=== PATIENT | male | born 1955 | race Caucasian/White ===

== ENCOUNTER 2022-08-23 12:02 | Outpatient (CLI) | payer MEDICARE, SELFPAY | END 2022-08-23 12:03 | disposition home or self-care (01) | LOC: AMB 08-24 05:47 | PROVIDERS: Visit Provider Family Medicine | DX: R55 Syncope and collapse (principal) | CPT/HCPCS: A0425; A0429 ==

== ENCOUNTER 2022-08-23 12:25 | Inpatient (IN) | payer MEDICARE, SELFPAY ==
[2022-08-23] VITALS (39 sets, daily range): BP systolic 171–238; BP diastolic 124–150; PULSE 70–98; RESP 16; TEMP 36.6–36.8; O2SAT 91–100; BMI 23.0; BMI 19.5
--- NOTE | 2022-08-23 12:37 | CRLHL7_ITS ---
For Patients: As a result of the Cures Act, medical imaging exams and procedure reports are released immediately into your electronic medical record. You may view this report before your referring provider. If you have questions, please contact your health care provider. INDICATION: Fall, weakness. COMPARISON: None available. TECHNIQUE: Portable chest. FINDINGS: Normal heart size. Pulmonary nodule in the mid to upper left hemithorax measuring 15 mm. No focal consolidative process. No obvious pneumothorax or pleural effusion. No aggressive-appearing osseous lesion. IMPRESSION: Left upper lobe pulmonary nodule measuring 15 mm. Dictated by Barney Weldon MD @ 08/23/2022 1:53:45 PM (Electronically Signed)
--- NOTE | 2022-08-23 12:39 | ED_ITS ---
HPI - General Adult General Date Seen: 08/23/22 Chief complaint: Neuro Symptoms/Altered Deficit Stated complaint: Stroke Time Seen by Provider: 08/23/22 12:37 Source: patient, EMS, RN notes reviewed and old records reviewed Mode of arrival: EMS Limitations: altered mental status History of Present Illness HPI narrative: Patient was brought in by EMS with stroke code. He was met in CT scan with EMS. Patient is having confusion, was found down in his bathroom and assisted up by his roommate. Patient states that he fell at 2:30 a.m. in the bathroom, states his legs were just weak and gave out on him. He states his roommate picked him up at 6:30 a.m. in the morning and gotten back to bed. This is not true, these events just happened prior to arrival, unclear how long patient was down in the bathroom. He denies any pain at this time. He is lucid in following commands. EMS thought he had some left facial drooping and with the lack of clarity/confusion for events, did call a stroke code. He was hypertensive I believe with a blood pressure in the systolic of 230s and diastolic I believe over 110. His pulse was mildly tachycardic at 107 for EMS. Sugar was normal and 130s. His roommate reportedly last had seen him while at about 10:00 a.m. last night which was reported to EMS., he was found down in the bathroom at around noon today. Patient tells me his legs just gave out on him. Unclear if there is any loss of consciousness. He denies any pain anywhere. Denies any difficulty breathing, no chest pain. On initial evaluation he sounds dysarthric but does not have teeth. EMS noted a facial droop which I am not seen at that time on arrival. He knows he is at [facility]. Admittedly sometimes his speech is difficult to understand but I a.m. able to make out what he sane if I have him repeat himself. Denies any numbness or tingling anywhere. 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 No visual field cut. No double vision or headache. Lifts his lower extremities, wiggles his feet. He is going to proceed with CT scan of his head and neck, return to the ER after that. I will not be doing a CTA of this patient as I do not find anything on clinical exam that suggests large vessel occlusion. Did look back in his records and in 2015 he had a right rotator cuff repair, postoperative blood pressures were 140s to 150s systolic. He has also had low back issues with surgery at L5 and S1. He has had an appendectomy and cataract surgery. In 2015 he was only on a multivitamin. I see no evidence of any documentation of hypertension for this patient nor has he ever been on any antihypertensives that I can see in our remote records. Related Data Home Medications Medication Instructions Recorded Confirmed No Known Home Medications 08/23/22 08/23/22 Allergies Allergy/AdvReac Type Severity Reaction Status Date / Time No Known Drug Allergies Allergy Verified 08/23/22 13:29 Review of Systems Status of ROS: Reports: 6 or more systems reviewed and unremarkable except as noted in History and below PFSH PFS Social History What is your current living situation: I presently have a place to live Problems where you live: oven or stove not working Problems where you live details: currently no stove In the past 12 months, utilities in danger of being shut off: no In the past 12 mos, have been you worried that your food would run out before you had money to buy more?: never true In the past 12 mos, the food you bought just didn't last and you didn't have money to buy more?: never true Smoking Status: Former smoker Do you use any of these nicotine containing products: None How often do you have a drink containing alcohol: never AUDIT-C Alcohol total score: 0 Non-prescribed substance use: denies use How often does anyone, including family, friends and others, physically hurt you : How often does anyone, including family, friends and others, insult or talk down to you: How often does anyone, including family, friends and others, threaten you with harm: How often does anyone, including family, friends and others, scream or curse at you: service: No Exam Const: Vital Signs, click to edit/add: Vital Signs - 24 hr 08/23/22 13:00 08/23/22 13:00 08/23/22 13:02 Temperature Pulse Rate 94 94 Pulse Rate [Pulse Oximeter] 93 Respiratory Rate Blood Pressure 211/139 H Blood Pressure [Ri ght Arm] Pulse Oximetry 97 97 Oxygen Delivery Me thod 08/23/22 13:03 08/23/22 13:15 08/23/22 13:15 Temperature Pulse Rate 94 88 Pulse Rate [Pulse Oximeter] 96 Respiratory Rate Blood Pressure Blood Pressure [Ri ght Arm] Pulse Oximetry 97 97 Oxygen Delivery Me thod 08/23/22 13:17 08/23/22 13:18 08/23/22 13:30 Temperature Pulse Rate 87 92 90 Pulse Rate [Pulse Oximeter] Respiratory Rate 16 Blood Pressure 213/139 H 213/139 H Blood Pressure [Ri ght Arm] Pulse Oximetry 95 96 98 Oxygen Delivery Me thod Room Air 08/23/22 13:30 08/23/22 13:32 08/23/22 13:33 Temperature Pulse Rate 87 82 Pulse Rate [Pulse Oximeter] 96 Respiratory Rate 16 Blood Pressure 210/149 H Blood Pressure [Ri ght Arm] Pulse Oximetry 96 96 Oxygen Delivery Me thod 08/23/22 13:45 08/23/22 13:45 08/23/22 13:47 Temperature Pulse Rate 89 94 Pulse Rate [Pulse Oximeter] 95 Respiratory Rate 16 Blood Pressure 210/143 H Blood Pressure [Ri ght Arm] Pulse Oximetry 95 95 Oxygen Delivery Me thod 08/23/22 13:48 08/23/22 14:00 08/23/22 14:02 Temperature Pulse Rate 93 Pulse Rate [Pulse Oximeter] 97 Respiratory Rate Blood Pressure 222/150 H Blood Pressure [Ri ght Arm] Pulse Oximetry 98 Oxygen Delivery Me thod 08/23/22 14:07 08/23/22 14:15 08/23/22 14:15 Temperature Pulse Rate 87 89 Pulse Rate [Pulse Oximeter] 97 Respiratory Rate Blood Pressure Blood Pressure [Ri ght Arm] Pulse Oximetry 97 96 Oxygen Delivery Me thod 08/23/22 14:17 08/23/22 14:29 08/23/22 14:30 Temperature Pulse Rate 93 88 84 Pulse Rate [Pulse Oximeter] Respiratory Rate 16 16 Blood Pressure 203/140 H 238/145 H Blood Pressure [Ri ght Arm] Pulse Oximetry 97 98 97 Oxygen Delivery Me thod 08/23/22 14:30 08/23/22 14:32 08/23/22 14:33 Temperature Pulse Rate 78 77 Pulse Rate [Pulse Oximeter] 98 Respiratory Rate Blood Pressure 200/140 H Blood Pressure [Ri ght Arm] Pulse Oximetry 96 96 Oxygen Delivery Me thod 08/23/22 14:45 08/23/22 14:45 08/23/22 14:47 Temperature Pulse Rate 75 82 Pulse Rate [Pulse Oximeter] 98 Respiratory Rate 16 Blood Pressure 223/143 H Blood Pressure [Ri ght Arm] Pulse Oximetry 100 95 Oxygen Delivery Me thod 08/23/22 14:49 08/23/22 14:57 08/23/22 15:00 Temperature Pulse Rate 79 75 71 Pulse Rate [Pulse Oximeter] Respiratory Rate Blood Pressure 180/124 H Blood Pressure [Ri ght Arm] Pulse Oximetry 97 96 97 Oxygen Delivery Me thod 08/23/22 15:00 08/23/22 15:04 08/23/22 15:05 Temperature Pulse Rate 70 76 Pulse Rate [Pulse Oximeter] 97 Respiratory Rate 16 Blood Pressure 196/138 H Blood Pressure [Ri ght Arm] Pulse Oximetry 97 96 Oxygen Delivery Me thod 08/23/22 15:15 08/23/22 15:15 08/23/22 15:18 Temperature Pulse Rate 78 76 Pulse Rate [Pulse Oximeter] 98 Respiratory Rate Blood Pressure 207/148 H Blood Pressure [Ri ght Arm] Pulse Oximetry 98 98 Oxygen Delivery Me thod 08/23/22 17:20 Temperature 98 F Pulse Rate Pulse Rate [Pulse Oximeter] 82 Respiratory Rate 16 Blood Pressure Blood Pressure [Ri ght Arm] 203/146 H Pulse Oximetry 96 Oxygen Delivery Me thod Room Air Documenting provider has reviewed patient's vital signs: yes Common normals: no apparent distress, oriented x3, no limitations and alert General appearance: cooperative, comfortable, disheveled and frail appearing Nutritional appearance: thin Orientation/consciousness: Yes awake, Yes oriented to person, Yes oriented to place and Yes confused Other: Confusion in time line events and confusion as to current time. He does know he is at [facility]. HENMT: Common normals: normocephalic, head/scalp atraumatic, hearing grossly normal bilaterally and external ears normal Head and scalp: normal to inspe ction, normocephalic and atraumatic Face and sinus: normal facial exam External ear: external ears normal Mouth: moist mucous membranes abnormal (Dry) Eye: Common normals: PERRL, EOMs intact bilaterally, conjunctivae normal, no scleral icterus and normal visual arcos by confrontation Conjunctiva: conjunctiva(e) normal Pupil: PERRL Neck & C-Spine: Common normals: full ROM, no lymphadenopathy, supple, no meningeal signs, no JVD and thyroid normal Thyroid: thyroid normal Resp: Common normals: normal respiratory effort, no retractions, no use of accessory muscles and clear to auscultation bilaterally Auscultation: clear to auscultation bilaterally Cardio: Common normals: no JVD, regular rate, regular rhythm, S1 normal heart sound, S2 normal heart sound, no gallops, no clicks and no murmurs Rate: regular rate Rhythm: regular rhythm Heart sounds: S1 normal and S2 normal GI: Common normals: Normal to inspection, nondistended, normoactive bowel sounds present, soft to palpation, non-tender, no hepatosplenomegaly and no masses Palpation: soft and no hepatosplenomegaly Extremity: Common normals: normal to inspection, full ROM, no calf tenderness and no pedal edema Neuro: [place] Coma Scale: document GCS findings [place] coma scale eye opening: Spontaneous (4) [place] coma scale verbal response: Orientated (5) Gla sg coma scale motor response: Obey commands (6) [place] coma scale total score: 15 Common normals: oriented x3, CN's II-XII intact bilaterally, moves all extremities, no focal motor deficits and no sensory deficits noted Sensorium/orientation: awake, alert, oriented to person and oriented to place Meningeal signs: no meningeal signs Motor exam: no pronator drift, no tremor noted, no asterixis and no fasciculations Other: Strength in upper extremities is 5/5 and symmetric, I can overcome his hip flexors bilaterally, has symmetric strength however. The lower legs around the ankles and feet are 5/5 in strength and symmetric. He has no focal motor deficit. On facial exam I do get symmetric mouth raise speech again at times seems slightly dysarthric, seems to understand what I am saying and follows commands appropriately. Difficult to say if speech is an issue from articulation or from a central speech dysarthria. NIH maybe 0-1. Patient given unknown down time was not a candidate for thrombolytics. Psych: Common normals: cooperative Course Course Hospital Course: 67-year-old male with some confusion, found down. Head CT and neck CT to rule out intracranial pathology. Blood pressure is quite elevated, REVOLVING INVENTORY CLERK disease with stroke and or hypertensive encephalopathy are possible. I do not feel a CTA is going to give us as much information as MRI, will consider doing MRI if needed here, will fallen clinically for a bit while we await our neuro imaging CT results. Will have him on cardiac monitoring, pulse oximetry, appropriate labs and EKG. Infectious etiology, metabolic derangements are all possible. Will also obtain a portable chest x-ray. Reevaluation(s) Time of Reevaluation #1: 14:39 Reevaluation #1: Patient is not experiencing any chest pain, no headache. Speech remains the same but no asymmetry on facial exam on my clinical examination. Blood pressure remains quite high, am going to try 5 mg IV labetalol just to slightly bring it down. Time of Reevaluation #2: 15:03 Reevaluation #2: Patient had slight reduction to 200/140 with 5 mg IV labetalol. When I discussed hospitalization with him, blood pressure went back up to nearly 240/140, again patient not having any complaints or decompensation is exam that I see. Did order 10 mg IV labetalol and blood pressure went to 196/138. Will not initiate any further blood pressure management. Will talk to the hospitalist about admission, cerebrovascular disease verses hypertensive encephalopathy remain 1. Diagnoses. Patient is overall stable. Consultations Consultation #1: Spoke with Dr. Magana, he does accept patient for admission. Did review concerns for the hypertension and rationale for not doing CTA. Time: 15:22 Vital Signs Vital signs: Initial Vital Signs Temperature 98.2 F 08/23/22 12:37 Temperature Source Temporal Artery Scan 08/23/22 12:37 Pulse Rate 96 08/23/22 12:37 Pulse Rhythm Regular 08/23/22 12:37 Respiratory Rate 16 08/23/22 12:37 Blood Pressure 228/147 H 08/23/22 12:37 Blood Pressure Mean 174 H 08/23/22 12:37 Pulse Oximetry 92 08/23/22 12:37 Oxygen Delivery Method Room Air 08/23/22 12:37 Vital Signs Temperature 98.2 F 08/23/22 12:37 Pulse Rate 96 08/23/22 12:37 Respiratory Rate 16 08/23/22 12:37 Blood Pressure 228/147 H 08/23/22 12:37 Pulse Oximetry 92 08/23/22 12:37 Oxygen Delivery Method Room Air 08/23/22 12:37 Temperature 98.1 F 08/24/22 11:15 Pulse Rate 94 08/24/22 11:15 Respiratory Rate 18 08/24/22 11:15 Blood Pressure 225/125 H 08/24/22 11:15 Pulse Oximetry 98 08/24/22 11:15 Oxygen Delivery Method Room Air 08/24/22 11:15 Medical Decision Making Lab Data Lab results reviewed: Yes I reviewed the patient's lab results Labs: Lab Results 08/23/22 08/23/22 08/23/22 Range/Units 12:37 12:50 12:56 WBC 7.72 (4.50-11.00) K/uL RBC 5.41 (4.30-5.90) m/uL Hgb 15.8 (13.5-17.5) gm/dL Hct 48.1 (37.0-53.0) % MCV 89 (80-100) fL MCH 29 (26-34) pg MCHC 33 (32-36) gm/dL RDW Coeff of Caprice 12.3 (11.5-15.5) % Plt Count 225 (140-440) K/uL Neut % (Auto) 69.7 (42.0-72.0) % Lymph % (Auto) 15.8 L (20-44) % [place] % (Auto) 9.5 (0.0-11.0) % Eos % (Auto) 4.5 (0.0-7.0) % Baso % (Auto) 0.4 (0.0-3.0) % Neut # (Auto) 5.38 (1.7-7.0) K/uL Lymph # (Auto) 1.20 (0.90-2.90) K/uL [place] # (Auto) 0.70 (0.00-0.90) K/UL Eos # (Auto) 0.35 (0.00-0.50) K/uL Baso # (Auto) 0.03 (0.00-0.30) K/uL INR 0.98 (0.91-1.10) APTT 28 (23-33) Seconds Sodium 141 (135-149) mmol/L Potassium 3.9 (3.6-5.1) mmol/L Chloride 106 (96-114) mmol/L Carbon Dioxide 26 (20-32) mmol/L BUN 27 (7-30) mg/dL Creatinine 1.6 H (0.5-1.5) mg/dL Estimated Creat Clear 45.36 Estimated GFR 47 ml/min Glucose 138 H (60-115) mg/dL Lactate 1.4 (0.5-1.9) mmol/L Calcium 9.8 (8.4-10.6) mg/dL Magnesium 1.7 (1.5-2.6) mg/dL Total Bilirubin 0.7 (0.1-1.5) mg/dL AST 24 (12-35) U/L ALT 23 (4-50) U/L Alkaline Phosphatase 62 (40-150) U/L Total Creatine Kinase 41 L (54-186) U/L C-Reactive Protein 0.6 (0.5-1.0) mg/dL Total Protein 8.2 (6.0-8.3) g/dL Albumin 4.6 (3.3-5.0) g/dL TSH 3.200 (0.270-4.200) uIU/mL Ethyl Alcohol < 0.01 L (0.01-0.03) % POC Troponin I 0.01 (0.01-0.04) ng/ml Imaging Data Chest x-ray: Attestation: I have reviewed the pertinent imaging results. Radiologist's impression: Patient: SUSHANT VIRGEN Facility:?[facility] Patient ID:?[id number] :?1955 Study:?XRay Chest PCXR-08/23/2022 12:54:21 PM Ordering Physician:Kevin Urbina Final Report: INDICATION: Fall, weakness. COMPARISON: None available. TECHNIQUE: Portable chest. FINDINGS: Normal heart size. Pulmonary nodule in the mid to upper left hemithorax measuring 15 mm. No focal consolidative process. No obvious pneumothorax or pleural effusion. No aggressive-appearing osseous lesion. IMPRESSION: Left upper lobe pulmonary nodule measuring 15 mm. Dictated by Barney Weldon MD @ 08/23/2022 1:53:45 PM (Electronic Signature) CT scan - head: Attestation: I have reviewed the pertinent imaging results. Radiologist's impression: Patient: SUSHANT VIRGEN Facility:?[facility] Patient ID:?[id number] Site Patient ID:?[id number]. Site :?1955 Study:?CT Head W/O-08/23/2022 1:03:24 PM Ordering Physician:Kevin Urbina Final Report: INDICATION: Fall, altered mental status. TECHNIQUE: CT head without contrast. COMPARISON: None. FINDINGS: CSF spaces: Mild diffuse parenchymal volume loss. Brain parenchyma and extra-axial spaces: Moderate chronic white matter ischemic disease. Chronic bilateral basal ganglia infarction. The graves-white differentiation is normal. No sign of mass, hemorrhage, or midline shift. No extra-axial fluid collection. Skull base and calvarium: The visualized paranasal sinuses and mastoid air cells demonstrate no acute or significant findings. The visualized orbits are grossly unremarkable. No skull fractures. IMPRESSION: No acute intracranial abnormality. Mild diffuse parenchymal volume loss and moderate chronic white matter ischemic disease. Please note that all CT scans at this facility use dose modulation, iterative reconstruction, and/or weight-based dosing when appropriate to reduce radiation dose to as low as reasonably achievable. Dictated by Williams Keita MD @ 08/23/2022 1:54:34 PM (Electronic Signature) CT cervical spine: Attestation: I have reviewed the pertinent imaging results. Radiologist's impression: Patient: SUSHANT VIRGEN Facility:?[facility] Patient ID:?[id number] Site Patient ID:?[id number]. Site :?1955 Study:?CT Spine Cervical W/O-08/23/2022 1:03:59 PM Ordering Physician:?Erika Urbina Final Report: INDICATION: Trauma. TECHNIQUE: CT cervical spine without contrast. COMPARISON: None. FINDINGS: Vertebrae: Alignment is normal. There are no fractures or suspicious bony lesions. Discs and facet joints: There are diffuse degenerative changes in the disc spaces and facet joints. Extraspinal findings: Paraspinous soft tissues are unremarkable. IMPRESSION: 1. No sign of acute injury. 2. Multilevel degenerative spondylosis. Please note that all CT scans at this facility use dose modulation, iterative reconstruction, and/or weight-based dosing when appropriate to reduce radiation dose to as low as reasonably achievable. Dictated by Williams Keita MD @ 08/23/2022 1:59:16 PM (Electronic Signature) ECG Data Attestation: I personally reviewed and interpreted this ECG as follows: (Sinus rhythm, 95 beats per minute. Machine calculated short [place] interval, PVC seen. Voltage criteria for LVH Q-waves lead 3 and AVF but no active ischemia noted.) Prior ECG tracings: not available for review
--- NOTE | 2022-08-23 12:42 | CRLHL7_ITS ---
For Patients: As a result of the Cures Act, medical imaging exams and procedure reports are released immediately into your electronic medical record. You may view this report before your referring provider. If you have questions, please contact your health care provider. INDICATION: Trauma. TECHNIQUE: CT cervical spine without contrast. COMPARISON: None. FINDINGS: Vertebrae: Alignment is normal. There are no fractures or suspicious bony lesions. Discs and facet joints: There are diffuse degenerative changes in the disc spaces and facet joints. Extraspinal findings: Paraspinous soft tissues are unremarkable. IMPRESSION: 1. No sign of acute injury. 2. Multilevel degenerative spondylosis. Please note that all CT scans at this facility use dose modulation, iterative reconstruction, and/or weight-based dosing when appropriate to reduce radiation dose to as low as reasonably achievable. Dictated by Williams Keita MD @ 08/23/2022 1:59:16 PM (Electronically Signed)
--- NOTE | 2022-08-23 12:42 | CRLHL7_ITS ---
For Patients: As a result of the Century Cures Act, medical imaging exams and procedure reports are released immediately into your electronic medical record. You may view this report before your referring provider. If you have questions, please contact your health care provider. INDICATION: Fall, altered mental status. TECHNIQUE: CT head without contrast. COMPARISON: None. FINDINGS: CSF spaces: Mild diffuse parenchymal volume loss. Brain parenchyma and extra-axial spaces: Moderate chronic white matter ischemic disease. Chronic bilateral basal ganglia infarction. The graves-white differentiation is normal. No sign of mass, hemorrhage, or midline shift. No extra-axial fluid collection. Skull base and calvarium: The visualized paranasal sinuses and mastoid air cells demonstrate no acute or significant findings. The visualized orbits are grossly unremarkable. No skull fractures. IMPRESSION: No acute intracranial abnormality. Mild diffuse parenchymal volume loss and moderate chronic white matter ischemic disease. Please note that all CT scans at this facility use dose modulation, iterative reconstruction, and/or weight-based dosing when appropriate to reduce radiation dose to as low as reasonably achievable. Dictated by Williams Keita MD @ 08/23/2022 1:54:34 PM (Electronically Signed)
[2022-08-23 13:03] LABS: Lactate* 1.4 mmol/L (0.5-1.9)
[2022-08-23 13:06] LABS: Basophils Absolute Auto 0.03 K/uL (0.00-0.30); Basophils Percent Auto 0.4 % (0.0-3.0); Eosinophils Absolute Auto 0.35 K/uL (0.00-0.50); Eosinophils Percent Auto 4.5 % (0.0-7.0); Hematocrit 48.1 % (37.0-53.0); Hemoglobin* 15.8 gm/dL (13.5-17.5); Immature Granulocytes Abs Auto 0.01 K/uL (0.00-0.30); Immature Granulocytes Pct Auto 0.1 %; Lymphocytes Percent Auto 15.8 % (20-44); Mean Corpuscular HGB Conc 33 gm/dL (32-36); Mean Corpuscular Hemoglobin 29 pg (26-34); Mean Corpuscular Volume 89 fL (80-100); Monocytes Percent Auto 9.5 % (0.0-11.0); Neutrophils Absolute Auto 5.38 K/uL (1.7-7.0); Neutrophils Percent Auto 69.7 % (42.0-72.0); Platelet Count* 225 K/uL (140-440); RDW Coefficient of Variation % 12.3 % (11.5-15.5); Red Blood Count 5.41 m/uL (4.30-5.90); White Blood Count* 7.72 K/uL (4.50-11.00)
[2022-08-23 13:07] LABS: Slide Review Reflex No
[2022-08-23 13:23] LABS: Albumin* 4.6 g/dL (3.3-5.0); Chloride* 106 mmol/L (96-114)
[2022-08-23 13:24] LABS: INR 0.98 (0.91-1.10); Partial Thromboplastin Time* 28 Seconds (23-33); Prothrombin Time 13.6 Seconds
[2022-08-23 13:24] LABS: Potassium* 3.9 mmol/L (3.6-5.1); Sodium* 141 mmol/L (135-149)
[2022-08-23 13:25] LABS: Bilirubin Total* 0.7 mg/dL (0.1-1.5); Creatinine* 1.6 mg/dL (0.5-1.5); Est. Creatinine Clearance* 45.36; Estimated Glomerular Filt Rate 47 ml/min
[2022-08-23 13:26] LABS: Alanine Aminotransferase* 23 U/L (4-50); Alkaline Phosphatase* 62 U/L (40-150); Aspartate Amino Transferase* 24 U/L (12-35); Blood Urea Nitrogen* 27 mg/dL (7-30); Carbon Dioxide* 26 mmol/L (20-32); Creatine Kinase* 41 U/L (54-186); Glucose* 138 mg/dL (60-115); Total Protein* 8.2 g/dL (6.0-8.3)
[2022-08-23 13:27] LABS: Calcium* 9.8 mg/dL (8.4-10.6); Magnesium* 1.7 mg/dL (1.5-2.6)
[2022-08-23 13:28] LABS: Troponin, Point-of-Care* 0.01 ng/ml (0.01-0.04)
[2022-08-23 13:29] LABS: C Reactive Protein* 0.6 mg/dL (0.5-1.0); Ethanol* < 0.01 % (0.01-0.03)
[2022-08-23] MEDS: LABETALOL HCL 5 MG/ML inj IVP (14:28)
--- NOTE | 2022-08-23 14:40 | ED.NURSE ---
Call from pt's roommate (Tato). Pt gives medical technical writer verbal consent to discuss updates. Roommate updated that pt will be admitted. Tato: [phone].
[2022-08-23] MEDS: LABETALOL HCL 5 MG/ML inj 10 MG IVP (14:51)
--- NOTE | 2022-08-23 15:18 | CRLHL7_ITS ---
For Patients: As a result of the Century Cures Act, medical imaging exams and procedure reports are released immediately into your electronic medical record. You may view this report before your referring provider. If you have questions, please contact your health care provider. CLINICAL HISTORY: Stroke. TECHNIQUE: 3D TOF MRA of the head was performed. 3D MIP reformats were performed at an independent workstation. COMPARISON: None available. FINDINGS: The petrous, cavernous, and supraclinoid segments of the internal carotid arteries are patent. The anterior and middle cerebral arteries are patent. The anterior communicating artery is visualized and within normal limits. The intracranial vertebral arteries, basilar trunk, and posterior cerebral arteries are patent. No intracranial proximal large vessel occlusion or flow-limiting luminal stenosis. No evidence of cerebral aneurysm or findings to suggest an arterial-venous shunting lesion. IMPRESSION: No intracranial proximal large vessel occlusion or flow-limiting luminal stenosis. Dictated by Raymond Squires MD @ 08/23/2022 5:31:49 PM (Electronically Signed)
--- NOTE | 2022-08-23 15:18 | CRLHL7_ITS ---
For Patients: As a result of the Century Cures Act, medical imaging exams and procedure reports are released immediately into your electronic medical record. You may view this report before your referring provider. If you have questions, please contact your health care provider. CLINICAL HISTORY: Stroke. TECHNIQUE: 3D TOF MRA and contrast-enhanced MRA of the neck was performed. 3D MIP reformats were performed at an independent workstation. Contrast: 20mL of Dotarem was administered intravenously. COMPARISON: None available. FINDINGS: The origins of the great vessels are patent. The origins of the vertebral arteries are patent, noting direct origin of the left vertebral artery from the aortic arch. The common carotid arteries are patent. Mild (<50%) atherosclerotic stenosis of the proximal right ICA by NASCET criteria. No significant stenosis of the proximal left ICA by NASCET criteria. The more distal cervical segments of the internal carotid arteries are patent. The cervical segments of the vertebral arteries are patent. IMPRESSION: Mild (<50%) atherosclerotic stenosis of the proximal right ICA by NASCET criteria. Dictated by Raymond Squires MD @ 08/23/2022 5:29:06 PM (Electronically Signed)
--- NOTE | 2022-08-23 15:18 | CRLHL7_ITS ---
For Patients: As a result of the Century Cures Act, medical imaging exams and procedure reports are released immediately into your electronic medical record. You may view this report before your referring provider. If you have questions, please contact your health care provider. CLINICAL HISTORY: Stroke. TECHNIQUE: Multi-sequence, multiplanar MRI examination of the brain was performed. Contrast: 20mL of Dotarem was administered intravenously. COMPARISON: Head CT from earlier the same day. FINDINGS: There are several scattered foci of restricted diffusion involving the supratentorial and infratentorial brain parenchyma, including the left frontal centrum semiovale, posterior left castellanos radiata, deep white matter of both parietal lobes, and right pontomedullary junction. These findings are most consistent with acute/early subacute infarcts. No intracranial hemorrhage, extra-axial collection, mass effect, or midline shift. Yzof-hg-oltmfbmq generalized parenchymal volume loss with resulting prominence of cerebral sulci and the ventricular system. Fairly extensive patchy and confluent T2/FLAIR hyperintensity within the white matter of both hemispheres as well as the josefina most consistent with sequela of moderately advanced chronic small vessel ischemia. Numerous small chronic infarcts are seen within the left frontal centrum semiovale, deep white matter of the left parietal lobe, left castellanos radiata, bilateral basal ganglia, left thalamus, and the josefina. There is no pathologic intracranial enhancement. The major dural venous sinuses and deep venous system are patent. Thinning of the left ocular lens. The paranasal sinuses are unremarkable. The mastoid air cells are clear. The calvarium is unremarkable. IMPRESSION: 1. Multiple small subcentimeter acute/early subacute infarcts, involving the supratentorial and infratentorial brain parenchyma, as detailed above. This is favored to be secondary to a central embolic source given the multiple vascular territories involved. 2. Multiple small chronic infarcts involving the supratentorial and infratentorial brain parenchyma. 3. Mtax-de-hkbudcfy generalized parenchymal volume loss and findings most consistent with sequela of moderately advanced chronic small vessel ischemia. Dictated by Raymond Squirse MD @ 08/23/2022 5:25:33 PM (Electronically Signed)
--- NOTE | 2022-08-23 15:45 | ED.NURSE ---
Pt has 18 g PIV placed in L forearm by pre-hospital EMS at approximately 1220. Asymptomatic, saline locked.
--- NOTE | 2022-08-23 16:00 | PM.IMHP1 ---
Hospitalist- H&P: HPI History of Present Illness Date Seen: 08/23/22 Chief complaint: Stroke Narrative: Ricki Flores is a 67 year old male with limited known past medical history; hypertension who presented to ED for evaluation of fall. Patient unable to provide hx due to confusion. He was found at his home by friend around noon after fall in the bathroom. He was noted to have slurred speech and dysarthria. He was brought to ED where CT head showed no acute findings. In the ED he was given IV labetalol X2 due to elevated blood pressure. He was admitted for further evaluation. During my assessment the patient states he had speaking difficulties last night. He is not oriented to time. Denies headache and SOB. I did order MRI/MRA Brain which is showing multiple infarcts. ED workup IMPRESSION: No acute intracranial abnormality. Mild diffuse parenchymal volume loss and moderate chronic white matter ischemic disease. CT cervical Spine 1. No sign of acute injury. 2. Multilevel degenerative spondylosis. CXR Left upper lobe pulmonary nodule measuring 15 mm. EKG-sinus rhythm; rate 95; PAcs Review of Systems Status of ROS: Reports: unobtainable due to medical condition [facility] Social History What is your current living situation: I presently have a place to live Problems where you live: oven or stove not working Problems where you live details: currently no stove In the past 12 months, utilities in danger of being shut off: no In the past 12 mos, have been you worried that your food would run out before you had money to buy more?: never true In the past 12 mos, the food you bought just didn't last and you didn't have money to buy more?: never true Smoking Status: Former smoker Do you use any of these nicotine containing products: None How often do you have a drink containing alcohol: never AUDIT-C Alcohol total score: 0 Non-prescribed substance use: denies use How often does anyone, including family, friends and others, physically hurt you: How often does anyone, including family, friends and others, insult or talk down to you: How often does anyone, including family, friends and others, threaten you with harm: How often does anyone, including family, friends and others, scream or curse at you: service: No Meds Home Medications and Allergies Home Medications Medication Instructions Recorded Confirmed Type No Known Home Medications 08/23/22 08/23/22 History Allergies Allergy/AdvReac Type Severity Reaction Status Date / Time No Known Drug Allergies Allergy Verified 08/23/22 13:29 Exam Narrative: Exam Narrative: Gen: no acute distress HEENT: NCAT EOMI mmm Neck: Supple CV: RRR normal s1 s2 Lungs: CTAB Abd: Soft,nt, nd Neuro: Alert,oriented to place but not time, speech slurred, expressive aphasia; LUE/LLE strength 4/5; sensation light touch intact; difficult to ascertain facial droop due to facial hair Psych: appropriate affect MSK: decreased muscle mass Skin; Warm, dry no rash on face Const: Vital Signs, click to edit/add: Vital Signs - 24 hr 08/23/22 12:37 08/23/22 12:37 08/23/22 12:37 Temperature 98.2 F Pulse Rate Pulse Rate [Pulse Oximeter] 96 93 Respiratory Rate 16 Blood Pressure Blood Pressure [Le ft Upper Arm] 228/147 H Pulse Oximetry 92 92 Oxygen Delivery Me thod Room Air 08/23/22 12:42 08/23/22 12:43 08/23/22 12:45 Temperature Pulse Rate 96 93 Pulse Rate [Pulse Oximeter] Respiratory Rate Blood Pressure 228/147 H Blood Pressure [Le ft Upper Arm] Pulse Oximetry 91 98 Oxygen Delivery Me thod 08/23/22 12:45 08/23/22 12:49 08/23/22 13:00 Temperature Pulse Rate 92 94 Pulse Rate [Pulse Oximeter] 93 Respiratory Rate Blood Pressure 237/138 H Blood Pressure [Le ft Upper Arm] Pulse Oximetry 97 97 Oxygen Delivery Me thod 08/23/22 13:00 08/23/22 13:02 08/23/22 13:03 Temperature Pulse Rate 94 94 Pulse Rate [Pulse Oximeter] 93 Respiratory Rate Blood Pressure 211/139 H Blood Pressure [Le ft Upper Arm] Pulse Oximetry 97 97 Oxygen Delivery Me thod 08/23/22 13:15 08/23/22 13:15 08/23/22 13:17 Temperature Pulse Rate 88 87 Pulse Rate [Pulse Oximeter] 96 Respiratory Rate Blood Pressure 213/139 H Blood Pressure [Le ft Upper Arm] Pulse Oximetry 97 95 Oxygen Delivery Me thod 08/23/22 13:18 08/23/22 13:30 08/23/22 13:30 Temperature Pulse Rate 92 90 Pulse Rate [Pulse Oximeter] 96 Respiratory Rate 16 Blood Pressure 213/139 H Blood Pressure [Le ft Upper Arm] Pulse Oximetry 96 98 Oxygen Delivery Me thod Room Air 08/23/22 13:32 08/23/22 13:33 08/23/22 13:45 Temperature Pulse Rate 87 82 Pulse Rate [Pulse Oximeter] 95 Respiratory Rate 16 Blood Pressure 210/149 H Blood Pressure [Le ft Upper Arm] Pulse Oximetry 96 96 Oxygen Delivery Me thod 08/23/22 13:45 08/23/22 13:47 08/23/22 13:48 Temperature Pulse Rate 89 94 93 Pulse Rate [Pulse Oximeter] Respiratory Rate 16 Blood Pressure 210/143 H Blood Pressure [Le ft Upper Arm] Pulse Oximetry 95 95 98 Oxygen Delivery Me thod 08/23/22 14:00 08/23/22 14:02 08/23/22 14:07 Temperature Pulse Rate 87 Pulse Rate [Pulse Oximeter] 97 Respiratory Rate Blood Pressure 222/150 H Blood Pressure [Le ft Upper Arm] Pulse Oximetry 97 Oxygen Delivery Me thod 08/23/22 14:15 08/23/22 14:15 08/23/22 14:17 Temperature Pulse Rate 89 93 Pulse Rate [Pulse Oximeter] 97 Respiratory Rate 16 Blood Pressure 203/140 H Blood Pressure [Le ft Upper Arm] Pulse Oximetry 96 97 Oxygen Delivery Me thod 08/23/22 14:29 08/23/22 14:30 08/23/22 14:30 Temperature Pulse Rate 88 84 Pulse Rate [Pulse Oximeter] 98 Respiratory Rate 16 Blood Pressure 238/145 H Blood Pressure [Le ft Upper Arm] Pulse Oximetry 98 97 Oxygen Delivery Me thod 08/23/22 14:32 08/23/22 14:33 08/23/22 14:45 Temperature Pulse Rate 78 77 Pulse Rate [Pulse Oximeter] 98 Respiratory Rate Blood Pressure 200/140 H Blood Pressure [Le ft Upper Arm] Pulse Oximetry 96 96 Oxygen Delivery Me thod 08/23/22 14:45 08/23/22 14:47 08/23/22 14:49 Temperature Pulse Rate 75 82 79 Pulse Rate [Pulse Oximeter] Respiratory Rate 16 Blood Pressure 223/143 H Blood Pressure [Le ft Upper Arm] Pulse Oximetry 100 95 97 Oxygen Delivery Me thod 08/23/22 14:57 08/23/22 15:00 08/23/22 15:00 Temperature Pulse Rate 75 71 Pulse Rate [Pulse Oximeter] 97 Respiratory Rate Blood Pressure 180/124 H Blood Pressure [Le ft Upper Arm] Pulse Oximetry 96 97 Oxygen Delivery Tn thod 08/23/22 15:04 08/23/22 15:05 08/23/22 15:15 Temperature Pulse Rate 70 76 Pulse Rate [Pulse Oximeter] 98 Respiratory Rate 16 Blood Pressure 196/138 H Blood Pressure [Le ft Upper Arm] Pulse Oximetry 97 96 Oxygen Delivery Tn thod 08/23/22 15:15 08/23/22 15:18 Temperature Pulse Rate 78 76 Pulse Rate [Pulse Oximeter] Respiratory Rate Blood Pressure 207/148 H Blood Pressure [Le ft Upper Arm] Pulse Oximetry 98 98 [facility] - [facility]: Result Labs Labs: Short CBC 08/23/22 Range/Units 12:56 WBC 7.72 (4.50-11.00) K/uL Hgb 15.8 (13.5-17.5) gm/dL Hct 48.1 (37.0-53.0) % Plt Count 225 (140-440) K/uL BMP 08/23/22 12:37 Sodium 141 Potassium 3.9 Chloride 106 Carbon Dioxide 26 BUN 27 Creatinine 1.6 H Glucose 138 H Calcium 9.8 Cardiac Enzymes 08/23/22 Range/Units 12:37 Total Creatine Kinase 41 L (54-186) U/L Liver Function 08/23/22 Range/Units 12:37 Total Bilirubin 0.7 (0.1-1.5) mg/dL AST 24 (12-35) U/L ALT 23 (4-50) U/L Alkaline Phosphatase 62 (40-150) U/L Albumin 4.6 (3.3-5.0) g/dL Assessment and Plan Assessment and plan (1) Stroke: Status: Acute (2) Hypertension: Status: Acute (3) CKD (chronic kidney disease): Status: Acute Plan Assessment: Ricki Flores is a 67 year old male with limited known past medical history; hypertension who presented to ED for evaluation of fall, confusion, slurred speech and dysarthria. He was brought to ED where CT head showed no acute findings. In the ED he was given IV labetalol X2 due to elevated blood pressure. He was admitted for further evaluation. I did order MRI/MRA Brain which is showing multiple infarcts. 1. Acute CVA 2. Hx of HTN 3. Presumed CKD 3; cr 1.6 4. Hyperglycemia Plan -admit to inpatient -Aspirin 325mg -PT, OT, METHODS ANALYST DATA PROCESSING consult -SW consult Thursday -echo -tele -neuro checks -permissive htn -check a1c -check lipid panel -npo did not pass swallow eval -I discussed case with [facility]; who recommended workup noted above Code-Full DVT ppx-SCD MRI BRAIN MPRESSION: 1. Multiple small subcentimeter acute/early subacute infarcts, involving the supratentorial and infratentorial brain parenchyma, as detailed above. This is favored to be secondary to a central embolic source given the multiple vascular territories involved. 2. Multiple small chronic infarcts involving the supratentorial and infratentorial brain parenchyma. 3. Cusq-yw-tcizcutb generalized parenchymal volume loss and findings most consistent with sequela of moderately advanced chronic small vessel ischemia. MRA MPRESSION: No intracranial proximal large vessel occlusion or flow-limiting luminal stenosis.
[2022-08-23 18:06] LABS: Appearance Urine Clear (Clear); Bilirubin Urine 1+ (Negative); Blood Urine Trace-intact (Negative); Color Urine Yellow (Yellow); Glucose Urine Negative (Negative); Ketones Urine Trace (Negative); Leukocyte Esterase Urine Negative (Negative); Nitrite Urine Negative (Negative); Protein Urine Trace (Negative); Specific Gravity Urine 1.025 (1.000-1.030); Urobilinogen Urine 0.2 (0.2-1.0)
[2022-08-23 18:17] LABS: Barbiturate Screen Urine Negative (Negative); Benzodiazepines Screen Urine Negative (Negative); Cocaine Screen Urine Negative (Negative); Methadone Screen Urine Negative (Negative); Methamphetamines Screen Urine Negative (Negative); Opiate Screen Urine Negative (Negative); Oxycodone Screen Urine Negative (Negative); Phencyclidine Screen Urine Negative (Negative); Tricyclic Antidepressant Urine Negative (Negative)
[2022-08-23] MEDS: 0.9 % SODIUM CHLORIDE 1000 ml 1,000 ML 75 ML IV (18:24)
[2022-08-23] MEDS: ASPIRIN 300 MG SUPP PR (18:24)
[2022-08-23 18:25] LABS: RBC Urine 0-2 (0-2); WBC Urine 0-2 (0-5)
[2022-08-23 18:26] LABS: Bacteria Urine Few
[2022-08-23] MEDS: SODIUM CHLORIDE 0.9 % (FLUSH) 10 ML SYRINGE 5 ML IVF (18:30)
[2022-08-23 18:31] LABS: Amphetamine Screen Urine POSITIVE (Negative); Cannabinoid Screen Urine POSITIVE (Negative)
[2022-08-23] MEDS: HYDRALAZINE HCL 20 MG/ML inj 10 MG IVP (22:26)
--- NOTE | 2022-08-23 22:57 | PC.NURSE ---
Addendum entered by Ann Morgan RN 08/23/22 23:19: He has some left-sided weakness and possibly a slight facial droop. He is oriented to self, place, but not to year. Original Note: Shift [id number]- Patient arrives to floor from imaging via wheelchair. He is somewhat unsteady- gait belt and assist of 1 provided. He voids 150mLs this shift and blood pressures are extremely elevated- MD notified- see orders. He is unable to void this evening, bladder scanned for 160mLs. NPO per MD, patient requests water, he is given education and offered mouth swabs but refuses. He is otherwise appearing to try to rest in bed throughout shift.
[2022-08-24] VITALS (9 sets, daily range): BP systolic 208–231; BP diastolic 125–154; PULSE 76–100; RESP 16–20; TEMP 36.6–36.8; O2SAT 95–98
[2022-08-24 04:12] LABS: Chloride* 109 mmol/L (96-114); Potassium* 3.6 mmol/L (3.6-5.1); Sodium* 142 mmol/L (135-149)
[2022-08-24 04:15] LABS: Blood Urea Nitrogen* 23 mg/dL (7-30); Carbon Dioxide* 21 mmol/L (20-32); Cholesterol* 182 mg/dL (90-199); Creatinine* 1.2 mg/dL (0.5-1.5); Est. Creatinine Clearance* 52.92; Estimated Glomerular Filt Rate 66 ml/min; Glucose* 108 mg/dL (60-115)
[2022-08-24 04:16] LABS: Calcium* 9.4 mg/dL (8.4-10.6); HDL Cholesterol* 40 mg/dL (>=40); LDL Cholesterol Calculated 117 mg/dL (<100); Triglycerides* 125 mg/dL (40-149)
[2022-08-24 04:23] LABS: Basophils Absolute Auto 0.04 K/uL (0.00-0.30); Basophils Percent Auto 0.5 % (0.0-3.0); Eosinophils Absolute Auto 0.52 K/uL (0.00-0.50); Eosinophils Percent Auto 6.3 % (0.0-7.0); Hematocrit 44.7 % (37.0-53.0); Hemoglobin* 14.9 gm/dL (13.5-17.5); Immature Granulocytes Abs Auto 0.01 K/uL (0.00-0.30); Immature Granulocytes Pct Auto 0.1 %; Lymphocytes Absolute Auto 1.97 K/uL (0.90-2.90); Lymphocytes Percent Auto 23.7 % (20-44); Mean Corpuscular HGB Conc 33 gm/dL (32-36); Mean Corpuscular Hemoglobin 29 pg (26-34); Mean Corpuscular Volume 88 fL (80-100); Monocytes Percent Auto 9.7 % (0.0-11.0); Neutrophils Absolute Auto 4.97 K/uL (1.7-7.0); Neutrophils Percent Auto 59.7 % (42.0-72.0); Platelet Count* 217 K/uL (140-440); RDW Coefficient of Variation % 12.3 % (11.5-15.5); Red Blood Count 5.07 m/uL (4.30-5.90); White Blood Count* 8.32 K/uL (4.50-11.00)
[2022-08-24 04:25] LABS: Slide Review Reflex No
[2022-08-24] MEDS: HYDRALAZINE HCL 20 MG/ML inj 10 MG IVP ×3 (04:34→23:00)
[2022-08-24] MEDS: 0.9 % SODIUM CHLORIDE 1000 ml 1,000 ML 100 ML IV ×2 (04:40→15:25)
--- NOTE | 2022-08-24 06:22 | PC.NURSE ---
Shift note: Patient's condition has remain stable. No further deterioration in neurological s/s. Pt has unstable gait. Weakness to the left side of the body noted and speech is not clear. Pt had difficulty voiding. Bladder scan done was 423ml. Straight catheter done at 0500 and 500ml of clear urine drained. Denied any pain. Bp has remained persistently high, 1x PRN hydralazine given. NPO status maintained.
--- NOTE | 2022-08-24 15:51 | P.IMPN_ITS ---
Progress Note: A&P Assessment and plan (1) Stroke: Problem details: - Urine toxicology screen was positive for amphetamines, which may have contributed to this. Echocardiogram pending. Aspirin given rectally yesterday. Unable to take PO at this time. - Brain MRI: Multiple small subcentimeter acute/early subacute infarcts, involving the supratentorial and infratentorial brain parenchyma, as detailed above. This is favored to be secondary to a central embolic source given the multiple vascular territories involved. In the ED he was given IV labetalol X2 due to elevated blood pressure. He was admitted for further evaluation. I did order MRI/MRA Brain which is showing multiple infarcts. - Speech tx, PT, OT, permissive HTN - Will need daily aspirin and statin when able to take PO Status: Acute (2) Hypertension: Problem details: Allow permissive hypertension, continue hydralazine for SBP >220 or DBP>120. Status: Acute (3) CKD (chronic kidney disease): Problem details: Cr stable. Status: Acute Plan Hgb A1C pending Will need SNF Subjective Time Seen by Provider: 10:25 Date Seen: 08/24/22 Interval history: Ricki continues to have expressive aphasia. He was able to answer some questions with meaningful words, especially if the answer with short, such as he knew he was in [facility]. He was quite tearful and seemed very frustrated when trying to say something but it kept coming out ?baptism, baptism, baptism. ? Exam Narrative: Exam Narrative: General: Tearful. Awake, alert, oriented to self and place and month. He thought it was 2020 and did not know the date but did know it was Thursday. No pallor. No jaundice. Oropharynx: Clear. Mucous membranes moist. Cardiovascular: Regular rate and rhythm. No murmurs, gallops, or rubs. Respiratory: Clear to auscultation bilaterally. No wheezes or crackles. Abdomen: Bowel sounds present. Soft, nondistended, nontender. Neuro: Orientation as above. Speech is slurred and he continues to have expressive aphasia as above. Appears to have a facial droop as his upper lip is floppy while he is talking, but difficult to tell for certain since he has a mustache. Extraocular movements are full. No nystagmus. Tongue is midline. Peripheral vision and vision are grossly intact. Strength is diminished in the left upper and lower extremity, 3/5 and 4/5, respectively. Const: Vital Signs, click to edit/add: Vital Signs - 24 hr 08/23/22 17:20 08/23/22 19:06 08/23/22 20:00 Temperature 98 F 98.1 F Pulse Rate 73 Pulse Rate [Pulse Oximeter] 82 74 Respiratory Rate 16 16 Blood Pressure [Ri ght Arm] 203/146 H 226/127 H Pulse Oximetry 96 97 Oxygen Delivery Me thod Room Air Room Air 08/23/22 23:00 08/23/22 23:00 08/24/22 00:19 Temperature 98.1 F Pulse Rate 76 Pulse Rate [Pulse Oximeter] 90 90 Respiratory Rate 16 16 Blood Pressure [Ri ght Arm] 171/144 H Pulse Oximetry 98 Oxygen Delivery Me thod Room Air 08/24/22 03:00 08/24/22 07:47 08/24/22 08:06 Temperature 98 F Pulse Rate 95 Pulse Rate [Pulse Oximeter] 82 Respiratory Rate 16 Blood Pressure [Ri ght Arm] 214/134 H Pulse Oximetry 97 97 Oxygen Delivery Me thod Room Air 08/24/22 08:06 08/24/22 11:15 08/24/22 15:09 Temperature 98.1 F 98.1 F Pulse Rate 100 Pulse Rate [Pulse Oximeter] 98 94 Respiratory Rate 20 18 Blood Pressure [Ri ght Arm] 208/142 H 225/125 H Pulse Oximetry 97 98 Oxygen Delivery Me thod Room Air Room Air 08/24/22 15:37 Temperature 98.3 F Pulse Rate Pulse Rate [Pulse Oximeter] 97 Respiratory Rate 18 Blood Pressure [Ri ght Arm] 231/148 H Pulse Oximetry 98 Oxygen Delivery Me thod Room Air Labs Labs: Laboratory Results - last 24 hr 08/23/22 08/24/22 17:58 04:04 WBC 8.32 RBC 5.07 Hgb 14.9 Hct 44.7 MCV 88 MCH 29 MCHC 33 RDW Coeff of Caprice 12.3 Plt Count 217 Neut % (Auto) 59.7 Lymph % (Auto) 23.7 [place] % (Auto) 9.7 Eos % (Auto) 6.3 Baso % (Auto) 0.5 Neut # (Auto) 4.97 Lymph # (Auto) 1.97 [place] # (Auto) 0.80 Eos # (Auto) 0.52 H Baso # (Auto) 0.04 Sodium 142 Potassium 3.6 Chloride 109 Carbon Dioxide 21 BUN 23 Creatinine 1.2 Estimated Creat Clear 52.92 Estimated GFR 66 Glucose 108 Calcium 9.4 Triglycerides 125 Cholesterol 182 LDL Cholesterol, Calc 117 H HDL Cholesterol 40 Urine Color Yellow Urine Appearance Clear Urine pH 5.0 Ur Specific [place] 1.025 Urine Protein Trace A Urine Glucose (UA) Negative Urine Ketones Trace A Urine Blood Trace-intact A Urine Nitrite Negative Urine Bilirubin 1+ A Urine Urobilinogen 0.2 Ur Leukocyte Esterase Negative Urine RBC 0-2 Urine WBC 0-2 Ur Squamous Epith Cells None Urine Bacteria Few A Urine Opiates Screen Negative Ur Oxycodone Screen Negative Urine Methadone Screen Negative Ur Propoxyphene Screen Negative Ur Barbiturates Screen Negative U Tricyclic Antidepress Negative Ur Phencyclidine Scrn Negative Ur Amphetamines Screen POSITIVE A* U Methamphetamines Scrn Negative U Benzodiazepines Scrn Negative Urine Cocaine Screen Negative U Marijuana (THC) Screen POSITIVE A* Ur Drug Screen Comment See Note
[2022-08-24] MEDS: LABETALOL HCL 5 MG/ML inj IVP (16:36)
[2022-08-24] MEDS: SODIUM CHLORIDE 0.9 % (FLUSH) 10 ML SYRINGE 5 ML IVF (23:00)
[2022-08-25] VITALS (11 sets, daily range): BP systolic 156–220; BP diastolic 97–154; PULSE 82–107; RESP 18; TEMP 36.8–36.9; O2SAT 92–97
[2022-08-25] MEDS: 0.9 % SODIUM CHLORIDE 1000 ml 1,000 ML 100 ML IV ×3 (00:54→20:49)
[2022-08-25] MEDS: SODIUM CHLORIDE 0.9 % (FLUSH) 10 ML SYRINGE 5 ML IVF ×2 (02:20→09:10)
[2022-08-25] MEDS: ONDANSETRON 2 MG/ML inj 4 MG IVP ×2 (02:20→10:55)
[2022-08-25 03:10] LABS: Hemoglobin A1C* 5.19 % (0-5.6)
--- NOTE | 2022-08-25 06:13 | PC.NURSE ---
Shift note: Pt is still bedfast, able to change position in bed, communicate needs and use call light appropriately. Bp has been consistently above 200/100 but denied headache, dizziness or visual disturbances. Pt was able to urinate couple of times tonight. No neurological deterioration from baseline. NPO status maintained. At 0300, pt complained of feeling nauseated, PRN Ondansetron given which was effective.
[2022-08-25] MEDS: HYDRALAZINE HCL 20 MG/ML inj 10 MG IVP (09:10)
[2022-08-25] MEDS: LABETALOL HCL 5 MG/ML inj IVP (11:44)
--- NOTE | 2022-08-25 12:40 | P.IMPN_ITS ---
Progress Note: A&P Assessment and plan (1) Stroke: Problem details: - Urine toxicology screen was positive for amphetamines, which may have contributed to this. Echocardiogram complete. Aspirin given rectally yesterday. Unable to take PO at this time. - Brain MRI: Multiple small subcentimeter acute/early subacute infarcts, involving the supratentorial and infratentorial brain parenchyma, as detailed above. This is favored to be secondary to a central embolic source given the multiple vascular territories involved. Mild right ICA stenosis, less than 50%. - I spoke with stroke neuro at [place] 08/25/2022 regarding the results of the echocardiogram and brain and neck MRI/MRA. He thought this was likely a embolic stroke as opposed to a transient vasospasms secondary to amphetamine use. We discussed the possible left to right cardiac shunt and that generally these are not closed at such a young age after just the 1st event. He recommended not pursuing any further intervention for that at this time. He recommended a hypercoagulation panel, daily baby aspirin, statin, and a Zio patch for 28 days. He recommended starting to bring the blood pressure down a but do so slowly as this patient likely has had significant high blood pressure for a long time. I spoke with patient's brother and gave him an update. Status: Acute (2) Hypertension: Problem details: Allow permissive hypertension, but start to bring down slowly, per recommendation from stroke neuro, start amlodipine, continue hydralazine for SBP >220 or DBP>120. Status: Acute (3) CKD (chronic kidney disease): Status: Acute Plan Hgb A1C 5.19%, does not indicate diabetes mellitus. Will need SNF. Video swallow study Wed or schedule as outpatient if he leaves before then. Time Spent With Patient Total time spent: Today I spent 35 minutes rounding on the patient. Greater than 50% included discussing care with the patient's roommate, brother, stroke Neurology, the team, reviewing data, updating and managing the care plan. Subjective Time Seen by Provider: 07:38 Date Seen: 08/25/22 Interval history: Anshul continues to have expressive aphasia and appears at least mildly confused. His roommate, Tato, was here today and recalls that anshul had been having difficulty walking due to unsteady gait for the past 2 weeks and then Tato found him in the bathroom and he was not moving his left arm or leg very well. Anshul has a brother in [place], Eamon Flores [phone]. Anshul said it was okay to call him. I spoke with Eamon for a total of 15 minutes in 2 separate phone calls today and gave him an update. We discussed stroke, possible PFO, hypertension, results of urine tox screen, Zio patch, need for rehab, and swallow study. Exam Narrative: Exam Narrative: General: Awake, alert, oriented to self and place, knew the day of the week, but not the year or date. He thought it was 2020 and did not know the date but did know it was Thursday. No pallor. No jaundice. Oropharynx: Clear. Mucous membranes moist. Cardiovascular: Regular rate and rhythm. No murmurs, gallops, or rubs. Respiratory: Clear to auscultation bilaterally. No wheezes or crackles. Abdomen: Bowel sounds present. Soft, nondistended, nontender. Neuro: Orientation as above. Her exam is unchanged, he continues to have expressive aphasia with slurred speech and left arm and leg weakness, 4/5. Const: Vital Signs, click to edit/add: Vital Signs - 24 hr 08/24/22 15:09 08/24/22 15:37 08/24/22 19:00 Temperature 98.3 F 98.1 F Pulse Rate 100 Pulse Rate [Pulse Oximeter] 97 89 Respiratory Rate 18 18 Blood Pressure [Ri ght Arm] 231/148 H 218/140 H Pulse Oximetry 98 95 Oxygen Delivery Me thod Room Air Room Air 08/24/22 23:00 08/24/22 23:00 08/24/22 23:00 Temperature 98.2 F Pulse Rate 100 Pulse Rate [Pulse Oximeter] 89 95 Respiratory Rate 18 18 Blood Pressure [Ri ght Arm] 230/154 H Pulse Oximetry 96 Oxygen Delivery Me thod Room Air 08/25/22 03:00 08/25/22 07:00 08/25/22 09:00 Temperature 98.2 F Pulse Rate Pulse Rate [Pulse Oximeter] 106 H 107 H 107 H Respiratory Rate 18 18 18 Blood Pressure [Ri ght Arm] 202/136 H 220/154 H Pulse Oximetry 95 97 Oxygen Delivery Me thod Room Air Room Air 08/25/22 10:00 08/25/22 10:57 Temperature 98.2 F Pulse Rate Pulse Rate [Pulse Oximeter] 105 H Respiratory Rate 18 Blood Pressure [Ri ght Arm] 190/128 H 211/151 H Pulse Oximetry 96 Oxygen Delivery Me thod Room Air Labs Labs: Laboratory Results - last 24 hr 08/24/22 04:04 Hemoglobin A1c 5.19
[2022-08-25] MEDS: ASPIRIN 81 MG TAB.CHEW PO (13:02)
[2022-08-25] MEDS: AMLODIPINE 5 MG TABLET PO (13:11)
--- NOTE | 2022-08-25 14:16 | REH.PT ---
Pt's BP remains high. Hold PT for today and attempt tomorrow.
--- NOTE | 2022-08-25 15:03 | PC.SOCIAL ---
Met with pt's friend, Tato, in pt's room. Pt's friend is willing to be involved as much as needed. Pt's friend informs that pt only has one sibling, Eamon Flores ([phone]), that lives in [place]. Pt's friend, Tato, spoke to pt's brother today to provide update. Pt and pt's friend state that pt has a good relationship with his brother. Provided update to MD on staff. MD will reach out to pt's brother. Updated contacts to add brother to pt's chart. Phone call to pt's brother, Eamon, to discuss discharge plans. Eamon is hopeful that pt can stay as close to [place] as possible since he has friends that are close to him and can stay involved in pt's care. Discussed pt's insurance and informed that the [facility] facility that would accept pt's insurance is in [place]. Eamon is fine with locating a facility as close to [place] as possible. Eamon asked about guardianship, informed that guardianship can be completed through [facility] and informed that this would be the [facility] option to ensure that pt's medical and financial needs are met. Phone call to Dianne at the [facility] in [place]. There is an opening and they will assess. Faxed referral to [facility] at [phone]. Dianne called with concerns that pt is not medically stable to discharge due to pt's blood pressure being so high that therapy is on hold, pt's diet recently being progressed, and pt feeling light headed and nauseated sitting in bed. Dianne would like an update on plans for pt moving forward. Provided update to charge nurse. Social work will follow up as necessary.
--- NOTE | 2022-08-25 19:57 | PC.NURSE ---
[id number] Shift Summary? 247 M.C. 67?Stroke? Hx: HTN, Fall, CKD? Pt?s diet advanced to level 6 soft bite size to 2 mildly thickened liquids. Tolerated lunch with a great appetite. No coughing or aspiration noted. Did not enjoy dinner. Staff picking meal since pt unable to make choices known. Says some words/ phrases and other times repeats words back to staff. Neighbor and roommate came to visit. Oriented to place and self but confusion regarding year and exact nature of his visit. updated brother who lives in [place] Will likely need a SNF and a POA. Sating well on room air. Not OOB, therapies came by but unable to mobilize d/t high BP, Permissive hypertension allowed up to 220/120, given hydralazine x1 as well as amlodipine and labetalol. Down to 160s systolic. Tachycardia. Tele in place. Some weakness all extremities but good technical associate. Difficulty lifting arms overhead. PERRLA. Incontinent in brief at times otherwise sometimes asks for help with urinal. AO1 rolling side to side. No BM. Wears glasses. Denies pain. Was dry heaving before swallow study but given Zofran and food- improved nausea with no vomiting. ?
[2022-08-25] MEDS: ENOXAPARIN 40 MG/0.4 ML INJ SUBCUT (20:46)
[2022-08-25] MEDS: SIMVASTATIN 20 MG TABLET PO (20:46)
[2022-08-26] VITALS (10 sets, daily range): BP systolic 157–207; BP diastolic 110–130; PULSE 75–96; RESP 16–20; TEMP 36.6–36.9; O2SAT 95–97
--- NOTE | 2022-08-26 05:55 | PC.NURSE ---
Shift note: Pt still remain bedfast. Able to assist in turning and reposition. There has been improvement in Bp this shift. Pt continuous to receive N/S at 100drop/hr. No neurological deterioration observed. Pt had urgency of urine.
[2022-08-26] MEDS: 0.9 % SODIUM CHLORIDE 1000 ml 1,000 ML 100 ML IV ×2 (07:11→19:21)
[2022-08-26] MEDS: ASPIRIN 81 MG TAB.CHEW PO (09:23)
[2022-08-26] MEDS: AMLODIPINE 5 MG TABLET PO (09:24)
--- NOTE | 2022-08-26 12:15 | P.DS_ITS ---
DS: Providers Provider Time Seen by Provider: 08:47 Date Seen: 08/26/22 Date of admission: 08/23/22 17:23 Primary care physician: Not a Local Provider Admitting Clinician: Angelo Magana MD Consults: 08/23/22 17:40 Consult to Physical Therapy [CONS] Routine Comment: Reason(s) for PT Consult:: Evaluate and Treat Any Restrictions?:: No Restrictions 08/23/22 17:48 Consult to Occupational Therapy [CONS] Routine Comment: Reason(s) for OT Consult:: Evaluate and Treat Any Restrictions?:: No Restrictions Comment: stroke 08/23/22 17:49 Consult to Speech Therapy [CONS] Routine Comment: Reason(s) for Speech Consult:: Swallowing Difficulty Speech/Swallowing Eval 08/23/22 18:13 Consult to Analytical Statistician [CONS] Routine Comment: Reason for Consult:: Social Service Consult Attending Physician on discharge: Zita Price MD Date of Discharge: 08/28/22 DS: Diagnosis Discharge Diagnosis (1) Stroke: Status: Acute Problem details: -embolic. Ischemic. Aspirin and a statin for life. Likely related to longstanding hypertension and intermittent and amphetamine abuse. Should see Neurology 3-4 weeks as an outpatient. We are recommending a Zio patch that can be arranged by Cardiology. - echocardiogram: 08/24/2022 Technically limited exam. Normal LV size. Mildly increased wall thickness. EF 65-70%. Global systolic RV function is normal. No valve disease detected. Possible crcm-ch-fhavu atrial level shunt. [facility] with [facility] neuro at [place] 08/25/2022 regarding the results of the echocardiogram and brain and neck MRI/MRA. He thought this was likely a embolic stroke as opposed to a transient vasospasms secondary to amphetamine use. We discussed the possible left to right cardiac shunt and that generally these are not closed at such a young age after just the 1st event. He recommended not pursuing any further intervention for that at this time. He recommended a hypercoagulation panel, daily baby aspirin, statin, and a Zio patch for 28 days. (2) Hypertension: Status: Acute Problem details: Allowed permissive hypertension initially. Started amlodipine 08/25/22 with good improvement. Started metoprolol extended release 50mg 08/27/24. Goals: 120-140/60-90. (3) CKD (chronic kidney disease): Status: Chronic Problem details: stage 3b (4) Amphetamine abuse: Status: Acute Problem details: Utox positive for amphetamines on admission DS: Summary Hospital Course Hospital Course: HOSPITALIST DISCHARGE SUMMARY ATTENDING PHYSICIAN: China Robbins MD FINAL DIAGNOSIS: Acute ischemic CVA, likely embolic -resulting in expressive aphasia, general weakness, dysphagia chronic hypertension amphetamine abuse HOSPITAL FOLLOWUP ISSUES: -Neurology -Primary care for CKD and Hypertension REFERRALS WHILE ADMITTED: PT/OT/SW REFERRALS AFTER DISCHARGE: PT/OT/Speech/Neurology BRIEF HOSPITAL COURSE: 67-year-old male found down in his trailer bathroom by his roommate.? He was aphasic and had left arm and leg weakness.? MRI brain consistent with stroke, likely embolic source.? Conversations have taken place with stroke neuro, recommendations are above.? U tox was positive for amphetamines.? Patient has been markedly hypertensive for which amlodipine and metoprolol was started, see above.? As an outpatient will need hypercoagulable panel, Zio patch for 28 days, aspirin, statin, neurology follow-up. SUBSTANTIVE NOTATIONS ON IMAGING, LAB, MICROBIOLOGY/PATHOLOGY STUDIES: CBC unremarkable INR was normal Electrolytes and renal function were normal Cholesterol panel revealed total cholesterol 182, LDL 170, triglycerides 125, HDL 40 Normal TSH Drug screen showed positive amphetamines and positive marijuana Alcohol screen was negative Troponin negative Swallow study 08/27/22 FINDINGS/IMPRESSION: Aspiration occurred with thin barium. This diminished with chin tuck maneuver. No aspiration or penetration with thicker consistencies of barium. MRA head/neck: 3D TOF MRA and contrast-enhanced MRA of the neck was performed. 3D MIP reformats were performed at an independent workstation. Mild (<50%) atherosclerotic stenosis of the proximal right ICA by NASCET criteria. Brain MRI IMPRESSION: 1. Multiple small subcentimeter acute/early subacute infarcts, involving the supratentorial and infratentorial brain parenchyma, as detailed above. This is favored to be secondary to a central embolic source given the multiple vascular territories involved. 2. Multiple small chronic infarcts involving the supratentorial and infratentorial brain parenchyma. 3. Hhob-th-pnmnmydh generalized parenchymal volume loss and findings most consistent with sequela of moderately advanced chronic small vessel ischemia DISCHARGE MEDICATIONS: See Reconciled list - SIGNIFICANT CHANGES: aspirin 81mg statin amlodipine metoprolol REVIEW OF SYSTEMS No new chest pain or dyspnea Pain controlled No voiding difficulties Tolerating diet challenge PHYSICAL EXAM: CONSTITUTIONAL: tearful. improving from a swallowing perspective; strength. Awake, following commands. quiet. VITAL SIGNS: see record. HEENT: Normocephalic, atraumatic. PERRL, EOMI, conjunctivae pink, no scleral icterus. Ears and nose externally normal. Pharynx normal. NECK: No JVD. No carotid bruit, no thyromegaly, no adenopathy. CHEST: Clear to auscultation bilaterally. HEART: S1 and S2 normal. Edema ABDOMEN: Soft, nontender. Normal bowel sounds. MUSCULOSKELETAL: No gross joint deformity or swelling. NEURO: CN intact. He can ambulate with a walker. some weakness in the right hand. SKIN: No rashes, petechiae, concerning changes PSYCHIATRIC: Mood euthymic. DISPOSITION: SNF Time spent on discharge 37 minutes. Time Spent with Patient Time attestation: Total time spent providing and/or coordinating discharge services: Exam Narrative: Exam Narrative: General: Awake, alert, oriented to self and place. Cardiovascular: Regular rate and rhythm. No murmurs, gallops, or rubs. Respiratory: Clear to auscultation bilaterally. No wheezes or crackles. Abdomen: Bowel sounds present. Soft, nondistended, nontender. Neuro: Orientation as above. Her exam is unchanged, he continues to have expressive aphasia with slurred speech and left arm and leg weakness, 4/5. Const: Vital Signs, click to edit/add: Vital Signs - 24 hr 08/25/22 13:14 08/25/22 15:00 08/25/22 15:00 Temperature Pulse Rate 88 Pulse Rate [Pulse Oximeter] 97 Respiratory Rate 18 Blood Pressure [Ri ght Arm] 217/128 H Pulse Oximetry Oxygen Delivery Me thod 08/25/22 15:30 08/25/22 19:00 08/25/22 23:00 Temperature 98.5 F 98.4 F Pulse Rate 82 Pulse Rate [Pulse Oximeter] 97 90 Respiratory Rate 18 18 Blood Pressure [Ri ght Arm] 162/106 H 160/102 H Pulse Oximetry 95 95 Oxygen Delivery Me thod Room Air Room Air 08/25/22 23:00 08/25/22 23:00 08/26/22 03:00 Temperature 98.4 F 98.4 F Pulse Rate Pulse Rate [Pulse Oximeter] 86 86 89 Respiratory Rate 18 18 18 Blood Pressure [Ri ght Arm] 156/97 H 157/120 H Pulse Oximetry 92 95 Oxygen Delivery Me thod Room Air Room Air 08/26/22 07:26 08/26/22 08:17 08/26/22 11:36 Temperature 98.4 F 98.2 F Pulse Rate 88 Pulse Rate [Pulse Oximeter] 84 88 Respiratory Rate 18 18 Blood Pressure [Ri ght Arm] 176/110 H 171/128 H Pulse Oximetry 95 95 Oxygen Delivery Me thod Room Air Room Air Discharge Plan Discharge Disposition: Xfer [facility] Date of Admission: 08/23/22 17:23 Attending Provider on Discharge: China Robbins Primary Care Provider: Provider,Not a Local Discharge Medications: New simvastatin 20 mg Tablet 20 mg PO HS Qty: 30 0RF amlodipine 10 mg Tablet 10 mg PO DAILY Qty: 30 0RF metoprolol succinate 25 mg Tablet Extended Release 24 Hr 50 mg PO DAILY Qty: 30 0RF metoprolol tartrate 25 mg Tablet 25 mg PO Q4H PRN (Reason: hypertension) Qty: 30 0RF Rx Instructions: Give for systolic blood pressure 180 or greater or diastolic blood pressure 100 or greater aspirin [Aspirin Childrens] 81 mg tablet,chewable 81 mg PO DAILY Qty: 90 2RF Discharge Orders: Discharge Order (Routine); Ordered 08/28/22 Ordered By: China Robbins Additional Instructions: -Ricki should see neurology (provider of choice) for f/u stroke in 3-4 weeks. [facility] may be the closest place to be seen. We are recommending a 28d Zio patch for embolic stroke work up. -aspirin and a statin for life -blood pressure management: Goal is 120-140/60-90 or less. Daily amlodipine and metoprolol succinate 50mg (long acting) each day. Hold these medications for a blood pressure of 120/60 or less. If is systolic blood pressure is greater 180 and/or diastolic blood pressure is greater than 100 give a metoprolol tartrate (short acting) 25mg every four hours as indicated. Activity Level: Up with assist and Use Walker Discharge Diet: Heart Healthy (2 gm sodium, low fat) Dysphagia Food: Level 6- Soft & Bite size Dysphagia Liquid: Level 2-Mildly Thick ([place]) Follow Up Appointments: [facility] [Provider Group] ([facility] neurology eval. establish care post stroke on or before 09/22/22.) [facility] [Outside] (Patient being discharged to [facility] Admit to: SNF Discharge Potential: Fair Length of Stay: <30 days Can use facility standing orders?: Yes Code Status: Full Code TEDs: Bilateral Knee Rehab Potential: Good Therapy: Physical Therapy, Occupational Therapy and Speech Therapy Therapy Orders: Evaluate and Treat Oxygen: No Urinary Catheter: No Lab Orders: hypercoagulable panel, results to PCP Orders are good >30 days: No Signature: Zita Price MD
--- NOTE | 2022-08-26 13:59 | PC.SOCIAL ---
Discharge planning- Follow up phone call to Dianne in admissions at the [facility] in [place]. Provided update on pt's blood pressures and what medication is being used to manage blood pressure. Dianne informs the team remains concerned about how high the blood pressures are and would like this worker to follow up tomorrow morning with updated information on blood pressures from today. The team has concerns that pt is not medically stable and do not want pt to discharge too soon and have to return to the hospital. Sent a fax with new active medication list that includes the blood pressure medication that was added. Provided update to charge nurse. Social work will follow up with the [facility] tomorrow morning.
--- NOTE | 2022-08-26 14:49 | PC.NURSE ---
End of shift-- Very pleasant and cooperative patient. VSS, though pt remains hypertensive and MD is aware. He denied any pain. SPO2 maintained >90% on RA. Oriented to person and place only, slight left sided facial droop and slight left sided weakness noted. Pt struggles to form words, but does appear to understand. Pt spoke some, and is appropriate, but speech is garbled. Telemetry shows NSR with BBB. LS CTA. He denied nausea and ate 100% of a soft, bite sized tray with only minimal assist. Incontinent of urine. He was up to chair with ceiling lift and back to bed via EZ stand and tolerated it very well. Report to oncoming shift.
[2022-08-26] MEDS: SIMVASTATIN 20 MG TABLET PO (21:26)
[2022-08-26] MEDS: ENOXAPARIN 40 MG/0.4 ML INJ SUBCUT (21:26)
[2022-08-26] MEDS: DOCUSATE SODIUM 100 MG CAPSULE PO (21:26)
[2022-08-26] MEDS: MELATONIN 3 MG TABLET PO (21:29)
--- NOTE | 2022-08-26 22:50 | PC.NURSE ---
End of Shift Summary: Pt pleasant and cooperative throughout shift, difficulty finding words intermittently with garbled speech, improved slightly throughout shift. Pt appeared sad at times when talking. EZ stand utilized for transfer to and from bathroom. Pt voided x2, 1 incontinent in brief. Tolerated diet well, thickened liquids. No pain reported throughout shift.
[2022-08-26] MEDS: HYDRALAZINE HCL 20 MG/ML inj 10 MG IVP (23:56)
[2022-08-27] VITALS (10 sets, daily range): BP systolic 137–188; BP diastolic 96–119; PULSE 72–97; RESP 12–20; TEMP 36.4–36.8; O2SAT 95–97
--- NOTE | 2022-08-27 06:54 | PC.NURSE ---
End of shift from [id number]. Pt alert and orientated w/ periodic confusion. Pt has trouble word finding. Neuro check qshift. Pleasant and cooperative. Pt is hypertensive. PRN hydralazine given for BP of 207/130. Pt occasionally inc. of urine, otherwise uses urinal in bed. Turn and repo. At 0100 pt complained of ?pressure? in bladder after voiding. Bladder scan showed 369ml. Pt was straight cathed for 500ml. Pt stated adequate relief. Pt rested for most of the night.
--- NOTE | 2022-08-27 08:15 | CRLHL7_ITS ---
For Patients: As a result of the Century Cures Act, medical imaging exams and procedure reports are released immediately into your electronic medical record. You may view this report before your referring provider. If you have questions, please contact your health care provider. INDICATION: Dysphagia TECHNIQUE: Modified barium swallow. Fluoroscopic time 87 seconds. FINDINGS/IMPRESSION: Aspiration occurred with thin barium. This diminished with chin tuck maneuver. No aspiration or penetration with thicker consistencies of barium. Dictated by Luigi Dhillon MD @ 08/27/2022 8:59:08 AM (Electronically Signed)
[2022-08-27] MEDS: ASPIRIN 81 MG TAB.CHEW PO (09:23)
[2022-08-27] MEDS: SODIUM CHLORIDE 0.9 % (FLUSH) 10 ML SYRINGE 5 ML IVF ×2 (09:24→22:29)
[2022-08-27] MEDS: AMLODIPINE 5 MG TABLET PO (09:24)
[2022-08-27] MEDS: METOPROLOL SUCCINATE (XL) 25 MG TAB PO ×2 (11:27→19:30)
[2022-08-27] MEDS: polyethylene glycoL 3350 17 GM PACK PO (11:27)
--- NOTE | 2022-08-27 12:00 | PM.IMPN1 ---
Progress Note: A&P Assessment and plan (1) Stroke: Problem details: - Urine toxicology screen was positive for amphetamines, which may have contributed to this. Echocardiogram complete. Aspirin given rectally yesterday. Unable to take PO at this time. - Dr. Price ([facility]) spoke with stroke neuro at [place] 08/25/2022 regarding the results of the echocardiogram and brain and neck MRI/MRA. He thought this was likely a embolic stroke as opposed to a transient vasospasms secondary to amphetamine use. We discussed the possible left to right cardiac shunt and that generally these are not closed at such a young age after just the 1st event. He recommended not pursuing any further intervention for that at this time. He recommended a hypercoagulation panel, daily baby aspirin, statin, and a Zio patch for 28 days. Status: Acute (2) Hypertension: Problem details: Allowed permissive hypertension initially. Started amlodipine 08/25/22 with good improvement. Started metoprolol extended release 25mg 08/27/24. Goals: 160's/90's for the next 2-3 weeks; then goal of 140/90 or less. Status: Acute (3) CKD (chronic kidney disease): Problem details: stage 3b Status: Chronic (4) Amphetamine abuse: Problem details: Utox positive for amphetamines on admission Status: Acute Subjective Date Seen: 08/27/22 Interval history: Daily Progress Note - Hospital Medicine Day #: 5 CC: stroke; AMS OVERNIGHT UPDATES FROM STAFF & MED, LAB, IMAGING UPDATES Ricki continues to have expressive aphasia - he tells me he needs help with the bathroom that he can't go and his points to his belly. I rounded with PT this morning and his motor planning still seems delayed but his strength is improved. his strength and coordination is generally weak but not obviously one sided. Currently his right hand feels numb and heavy to him. A concern from acute rehab has been his blood pressure. Understanding permissive hypertension is needed he remains quite hypertensive 180s over 110s on day 5 of his CVA. He was restarted on his home amlodipine yesterday. Ricki has a brother in [place], Eamon Flores [phone]. Brain MRI from 08/23: 1. Multiple small subcentimeter acute/early subacute infarcts, involving the supratentorial and infratentorial brain parenchyma, as detailed above. This is favored to be secondary to a central embolic source given the multiple vascular territories involved. 2. Multiple small chronic infarcts involving the supratentorial and infratentorial brain parenchyma. 3. Wido-gl-kjplxpfr generalized parenchymal volume loss and findings most consistent with sequela of moderately advanced chronic small vessel ischemia. Objective: Disheveled. Cachectic. Vitals: see above Lungs: Clear. Cardiac: S1S2. Neuro: His right hand sits turned up and out but he can move it. He has the strength to stand and pivot. When he sits in the wheelchair he sort of falls into it. He is able to lift both legs. His movement seems mildly robotic and stiff but otherwise is improving. Disposition/Potential discharge - Acute rehab/long-term. [facility] accepts. Total time is 35 minutes with greater than 50% spent in counseling and coordination of care. possible PFO, hypertension, results of urine tox screen, Zio patch, need for rehab, and swallow study. Exam Const: Vital Signs, click to edit/add: Vital Signs - 24 hr 08/26/22 15:00 08/26/22 18:28 08/26/22 19:00 Temperature 98.3 F 97.9 F Pulse Rate 85 Pulse Rate [Pulse Oximeter] 96 80 Respiratory Rate 20 20 Blood Pressure [Ri ght Arm] 188/129 H 201/117 H Pulse Oximetry 96 97 Oxygen Delivery Me thod Room Air Room Air 08/26/22 23:00 08/26/22 23:45 08/27/22 02:38 Temperature 98.0 F Pulse Rate 91 Pulse Rate [Pulse Oximeter] 75 97 Respiratory Rate 16 20 Blood Pressure [Ri ght Arm] 207/130 H 176/104 H Pulse Oximetry 95 95 Oxygen Delivery Me thod Room Air Room Air 08/27/22 07:00 08/27/22 07:00 08/27/22 07:00 Temperature 97.6 F Pulse Rate 90 Pulse Rate [Pulse Oximeter] 81 81 Respiratory Rate 12 12 Blood Pressure [Ri ght Arm] 186/111 H Pulse Oximetry 95 Oxygen Delivery Me thod Room Air
--- NOTE | 2022-08-27 16:24 | PC.SOCIAL ---
Discharge planning- Phone call to Dianne in admissions at the [facility]. Dianne is concerned about blood pressures. Suggested that a nurse to nurse be completed to discuss a plan for pt. Dianne provided nursing (Nicole) phone number of [phone], for a nurse to nurse. Received a phone call back from Dianne informing that Dr. Robbins spoke to nursing and they will accept pt. [facility] will get a prior auth from pt's insurance ([employer]). Faxed updated MD progress notes and therapy notes to [facility] so they can get prior auth. Social work will follow up as necessary.
[2022-08-27] MEDS: SIMVASTATIN 20 MG TABLET PO (20:41)
[2022-08-27] MEDS: ENOXAPARIN 40 MG/0.4 ML INJ SUBCUT (20:41)
--- NOTE | 2022-08-27 21:10 | PC.NURSE ---
Patient was given Metoprolol XL 25mg at 1930 when Metoprolol Tartrate [address] Magana notified. Patients VSS, registered nurse cardiac showing HR 80 NSR. Per MD, increase blood pressure checks overnight and continue to give Metoprolol Tartrate as ordered if VS within parameters.
[2022-08-28] VITALS (8 sets, daily range): BP systolic 124–192; BP diastolic 91–122; PULSE 73–96; RESP 18–20; TEMP 36.6–36.7; O2SAT 92–96
[2022-08-28] MEDS: METOPROLOL TARTRATE 25 MG TABLET PO ×2 (04:01→08:23)
--- NOTE | 2022-08-28 06:23 | PC.NURSE ---
Addendum entered by Dory Egan 08/28/22 06:51: Pt is up A2 with walker gait belt. Original Note: Pt alert and oriented x3, afebrile. Pt denies pain, headache, SOB, chest pain, and N/V. Pt has?mild weakness in left extremities with moderate weakness in right extremities. Pt is able to shift side to side independently?in bed. Pt?s Glaucoma scores have been 15, pt is able to verbalize needs but his speech soft-spoken, mumbled, and at times he has difficulties finding words. Pt is tolerating a soft bite size diet, and mild thickened liquids. Pt is up with A2 and EZ stand. Pt slept throughout most of night.
[2022-08-28] MEDS: HYDRALAZINE HCL 20 MG/ML inj 10 MG IVP (08:21)
[2022-08-28] MEDS: ASPIRIN 81 MG TAB.CHEW PO (09:29)
[2022-08-28] MEDS: METOPROLOL SUCCINATE (XL) 25 MG TAB 50 MG PO (09:29)
[2022-08-28] MEDS: polyethylene glycoL 3350 17 GM PACK PO (09:29)
[2022-08-28] MEDS: SODIUM CHLORIDE 0.9 % (FLUSH) 10 ML SYRINGE 5 ML IVF (09:30)
[2022-08-28] MEDS: AMLODIPINE 10 MG TABLET PO (09:32)
--- NOTE | 2022-08-28 09:33 | PM.IMPN1 ---
Progress Note: A&P Assessment and plan (1) Stroke: Problem details: - Urine toxicology screen was positive for amphetamines, which may have contributed to this. Echocardiogram complete. Aspirin given rectally yesterday. Unable to take PO at this time. - Dr. Price (Hospitalist-[facility]) spoke with stroke neuro at [facility] 08/25/2022 regarding the results of the echocardiogram and brain and neck MRI/MRA. He thought this was likely a embolic stroke as opposed to a transient vasospasms secondary to amphetamine use. We discussed the possible left to right cardiac shunt and that generally these are not closed at such a young age after just the 1st event. He recommended not pursuing any further intervention for that at this time. He recommended a hypercoagulation panel, daily baby aspirin, statin, and a Zio patch for 28 days. Status: Acute (2) Hypertension: Problem details: Allowed permissive hypertension initially. Started amlodipine 08/25/22 with good improvement. Started metoprolol extended release 25mg 08/27/24. Goals: 160's/90's for the next 2-3 weeks; then goal of 140/90 or less. Status: Acute (3) CKD (chronic kidney disease): Problem details: stage 3b Status: Chronic (4) Amphetamine abuse: Problem details: Utox positive for amphetamines on admission Status: Acute Subjective Date Seen: 08/28/22 Interval history: Daily Progress Note - Hospital Medicine Day #: 6 CC: stroke; AMS OVERNIGHT UPDATES FROM STAFF & MED, LAB, IMAGING UPDATES Ricki continues to have expressive aphasia - he tells me he needs help with the bathroom that he can't go and his points to his belly. I rounded with PT this morning and his motor planning still seems delayed but his strength is improved. his strength and coordination is generally weak but not obviously one sided. Currently his right hand feels numb and heavy to him. A concern from acute rehab has been his blood pressure. Understanding permissive hypertension is needed he remains quite hypertensive 180s over 110s on day 5 of his CVA. He was restarted on amlodipine on 08/26/2022. 08/27 metoprolol succinate at 25 mg daily was initiated. We also had p.r.n. orders for hydralazine and metoprolol p.o. 25 mg of tartrate overnight. This morning we continued to have blood pressures ranging 180s to 190s over 120s. No new labs today. Ricki has a brother in [place], Eamon Flores [phone]. Brain MRI from 08/23: 1. Multiple small subcentimeter acute/early subacute infarcts, involving the supratentorial and infratentorial brain parenchyma, as detailed above. This is favored to be secondary to a central embolic source given the multiple vascular territories involved. 2. Multiple small chronic infarcts involving the supratentorial and infratentorial brain parenchyma. 3. Ubwx-mi-wfjwhuzz generalized parenchymal volume loss and findings most consistent with sequela of moderately advanced chronic small vessel ischemia. Objective: Disheveled. Cachectic. Vitals: see above Lungs: Clear. Cardiac: S1S2. Neuro: His right hand sits turned up and out but he can move it. He has the strength to stand and pivot. When he sits in the wheelchair he sort of falls into it. He is able to lift both legs. His movement seems mildly robotic and stiff but otherwise is improving. Disposition/Potential discharge - Acute rehab/care home. [facility] accepts. Total time is 35 minutes with greater than 50% spent in counseling and coordination of care. possible PFO, hypertension, results of urine tox screen, Zio patch, need for rehab, and swallow study. Exam Const: Vital Signs, click to edit/add: Vital Signs - 24 hr 08/27/22 11:00 08/27/22 14:31 08/27/22 14:31 Temperature 98 F Pulse Rate 85 Pulse Rate [Pulse Oximeter] 88 81 Respiratory Rate 12 12 Blood Pressure [Ri ght Arm] 188/115 H Pulse Oximetry 96 Oxygen Delivery Me thod Room Air 08/27/22 15:00 08/27/22 19:15 08/27/22 22:27 Temperature 98.3 F 98.0 F 97.7 F Pulse Rate Pulse Rate [Pulse Oximeter] 82 84 80 Respiratory Rate 14 20 20 Blood Pressure [Ri ght Arm] 172/119 H 165/101 H 160/96 H Pulse Oximetry 97 96 96 Oxygen Delivery Me thod Room Air Room Air Room Air 08/27/22 23:00 08/27/22 23:00 08/27/22 23:50 Temperature 98.1 F Pulse Rate 72 Pulse Rate [Pulse Oximeter] 76 Respiratory Rate 20 20 Blood Pressure [Ri ght Arm] 137/98 H Pulse Oximetry 95 Oxygen Delivery Me thod Room Air 08/27/22 23:53 08/28/22 01:30 08/28/22 03:45 Temperature 97.9 F Pulse Rate Pulse Rate [Pulse Oximeter] 73 78 Respiratory Rate 20 18 Blood Pressure [Ri ght Arm] 145/105 H 162/108 H 158/106 H Pulse Oximetry 95 94 Oxygen Delivery Me thod Room Air Room Air 08/28/22 06:00 08/28/22 06:12 08/28/22 07:00 Temperature Pulse Rate Pulse Rate [Pulse Oximeter] 78 79 Respiratory Rate 18 18 Blood Pressure [Ri ght Arm] 192/120 H 180/122 H Pulse Oximetry 95 Oxygen Delivery Me thod Room Air 08/28/22 07:00 08/28/22 07:32 Temperature 98.1 F Pulse Rate 77 Pulse Rate [Pulse Oximeter] 79 Respiratory Rate 18 Blood Pressure [Ri ght Arm] 192/122 H Pulse Oximetry 92 Oxygen Delivery Me thod Room Air
--- NOTE | 2022-08-28 12:24 | PM.DS1 ---
DS: Providers Provider Date Seen: 08/28/22 Date of admission: 08/23/22 17:23 Primary care physician: Not a Local Provider Admitting Clinician: Angelo Magana MD Consults: 08/23/22 17:40 Consult to Physical Therapy [CONS] Routine Comment: Reason(s) for PT Consult:: Evaluate and Treat Any Restrictions?:: No Restrictions 08/23/22 17:48 Consult to Occupational Therapy [CONS] Routine Comment: Reason(s) for OT Consult:: Evaluate and Treat Any Restrictions?:: No Restrictions Comment: stroke 08/23/22 17:49 Consult to Speech Therapy [CONS] Routine Comment: Reason(s) for Speech Consult:: Swallowing Difficulty Speech/Swallowing Eval 08/23/22 18:13 Consult to Nuclear Plant Instrument Technician [CONS] Routine Comment: Reason for Consult:: Social Service Consult Attending Physician on discharge: China Robbins MD [facility] Date of Discharge: 08/28/22 DS: Diagnosis Discharge Diagnosis (1) Stroke: Status: Acute Problem details: -embolic. Ischemic. Aspirin and a statin for life. Likely related to longstanding hypertension and intermittent and amphetamine abuse. Should see Neurology 3-4 weeks as an outpatient. We are recommending a Zio patch that can be arranged by Cardiology. - echocardiogram: 08/24/2022 Technically limited exam. Normal LV size. Mildly increased wall thickness. EF 65-70%. Global systolic RV function is normal. No valve disease detected. Possible levu-[id number]-[id number] atrial level shunt. - Dr. Price (Hospitalist-[facility]) spoke with stroke neuro at [facility] 08/25/2022 regarding the results of the echocardiogram and brain and neck MRI/MRA. He thought this was likely a embolic stroke as opposed to a transient vasospasms secondary to amphetamine use. We discussed the possible left to right cardiac shunt and that generally these are not closed at such a young age after just the 1st event. He recommended not pursuing any further intervention for that at this time. He recommended a hypercoagulation panel, daily baby aspirin, statin, and a Zio patch for 28 days. (2) Hypertension: Status: Acute Problem details: Allowed permissive hypertension initially. Started amlodipine 08/25/22 with good improvement. Started metoprolol extended release 50mg 08/27/24. Goals: 120-140/60-90. (3) CKD (chronic kidney disease): Status: Chronic Problem details: stage 3b (4) Amphetamine abuse: Status: Acute Problem details: Utox positive for amphetamines on admission DS: Summary Hospital Course Hospital Course: HOSPITALIST DISCHARGE SUMMARY ATTENDING PHYSICIAN: China Robbins MD FINAL DIAGNOSIS: Acute ischemic CVA, likely embolic -resulting in expressive aphasia, general weakness, dysphagia chronic hypertension amphetamine abuse HOSPITAL FOLLOWUP ISSUES: -Neurology -Primary care for CKD and Hypertension REFERRALS WHILE ADMITTED: PT/OT/SW REFERRALS AFTER DISCHARGE: PT/OT/Speech/Neurology BRIEF HOSPITAL COURSE: 67-year-old male found down in his trailer bathroom by his roommate.? He was aphasic and had left arm and leg weakness.? MRI brain consistent with stroke, likely embolic source.? Conversations have taken place with stroke neuro, recommendations are above.? U tox was positive for amphetamines.? Patient has been markedly hypertensive for which amlodipine and metoprolol was started, see above.? As an outpatient will need hypercoagulable panel, Zio patch for 28 days, aspirin, statin, neurology follow-up. SUBSTANTIVE NOTATIONS ON IMAGING, LAB, MICROBIOLOGY/PATHOLOGY STUDIES: CBC unremarkable INR was normal Electrolytes and renal function were normal Cholesterol panel revealed total cholesterol 182, LDL 170, triglycerides 125, HDL 40 Normal TSH Drug screen showed positive amphetamines and positive marijuana Alcohol screen was negative Troponin negative Swallow study 08/27/22 FINDINGS/IMPRESSION: Aspiration occurred with thin barium. This diminished with chin tuck maneuver. No aspiration or penetration with thicker consistencies of barium. MRA head/neck: 3D TOF MRA and contrast-enhanced MRA of the neck was performed. 3D MIP reformats were performed at an independent workstation. Mild (<50%) atherosclerotic stenosis of the proximal right ICA by NASCET criteria. Brain MRI IMPRESSION: 1. Multiple small subcentimeter acute/early subacute infarcts, involving the supratentorial and infratentorial brain parenchyma, as detailed above. This is favored to be secondary to a central embolic source given the multiple vascular territories involved. 2. Multiple small chronic infarcts involving the supratentorial and infratentorial brain parenchyma. 3. Ubkh-gs-rjhtecye generalized parenchymal volume loss and findings most consistent with sequela of moderately advanced chronic small vessel ischemia DISCHARGE MEDICATIONS: See Reconciled list - SIGNIFICANT CHANGES: aspirin 81mg statin amlodipine metoprolol REVIEW OF SYSTEMS No new chest pain or dyspnea Pain controlled No voiding difficulties Tolerating diet challenge PHYSICAL EXAM: CONSTITUTIONAL: tearful. improving from a swallowing perspective; strength. Awake, following commands. quiet. VITAL SIGNS: see record. HEENT: Normocephalic, atraumatic. PERRL, EOMI, conjunctivae pink, no scleral icterus. Ears and nose externally normal. Pharynx normal. NECK: No JVD. No carotid bruit, no thyromegaly, no adenopathy. CHEST: Clear to auscultation bilaterally. HEART: S1 and S2 normal. Edema ABDOMEN: Soft, nontender. Normal bowel sounds. MUSCULOSKELETAL: No gross joint deformity or swelling. NEURO: CN intact. He can ambulate with a walker. some weakness in the right hand. SKIN: No rashes, petechiae, concerning changes PSYCHIATRIC: Mood euthymic. DISPOSITION: SNF Time spent on discharge 37 minutes. Status at Discharge Functional status at discharge: uses cane/walker Overall status at discharge: patient is not back to baseline Time Spent with Patient Time attestation: Total time spent providing and/or coordinating discharge services: Time spent: Greater than 30 minutes Exam Const: Vital Signs, click to edit/add: Vital Signs - 24 hr 08/27/22 14:31 08/27/22 14:31 08/27/22 15:00 Temperature 98.3 F Pulse Rate 85 Pulse Rate [Pulse Oximeter] 81 82 Respiratory Rate 12 14 Blood Pressure [Ri ght Arm] 172/119 H Pulse Oximetry 97 Oxygen Delivery Me thod Room Air 08/27/22 19:15 08/27/22 22:27 08/27/22 23:00 Temperature 98.0 F 97.7 F Pulse Rate 72 Pulse Rate [Pulse Oximeter] 84 80 Respiratory Rate 20 20 Blood Pressure [Ri ght Arm] 165/101 H 160/96 H Pulse Oximetry 96 96 Oxygen Delivery Me thod Room Air Room Air 08/27/22 23:00 08/27/22 23:50 08/27/22 23:53 Temperature 98.1 F Pulse Rate Pulse Rate [Pulse Oximeter] 76 Respiratory Rate 20 20 Blood Pressure [Ri ght Arm] 137/98 H 145/105 H Pulse Oximetry 95 Oxygen Delivery Me thod Room Air 08/28/22 01:30 08/28/22 03:45 08/28/22 06:00 Temperature 97.9 F Pulse Rate Pulse Rate [Pulse Oximeter] 73 78 78 Respiratory Rate 20 18 18 Blood Pressure [Ri ght Arm] 162/108 H 158/106 H 192/120 H Pulse Oximetry 95 94 95 Oxygen Delivery Me thod Room Air Room Air Room Air 08/28/22 06:12 08/28/22 07:00 08/28/22 07:00 Temperature 98.1 F Pulse Rate Pulse Rate [Pulse Oximeter] 79 79 Respiratory Rate 18 18 Blood Pressure [Ri ght Arm] 180/122 H 192/122 H Pulse Oximetry 92 Oxygen Delivery Me thod Room Air 08/28/22 07:32 08/28/22 11:00 Temperature 98.1 F Pulse Rate 77 Pulse Rate [Pulse Oximeter] 96 Respiratory Rate 18 Blood Pressure [Ri ght Arm] 124/91 H Pulse Oximetry 96 Oxygen Delivery Me thod Room Air Discharge Plan Discharge Disposition: [facility] Date of Admission: 08/23/22 17:23 Attending Provider on Discharge: China Robbins Primary Care Provider: Provider,Not a Local Discharge Medications: New simvastatin 20 mg Tablet 20 mg PO HS Qty: 30 0RF amlodipine 10 mg Tablet 10 mg PO DAILY Qty: 30 0RF metoprolol succinate 25 mg Tablet Extended Release 24 Hr 50 mg PO DAILY Qty: 30 0RF metoprolol tartrate 25 mg Tablet 25 mg PO Q4H PRN (Reason: hypertension) Qty: 30 0RF Rx Instructions: Give for systolic blood pressure 180 or greater or diastolic blood pressure 100 or greater aspirin [Aspirin Childrens] 81 mg tablet,chewable 81 mg PO DAILY Qty: 90 2RF Discharge Orders: Discharge Order (Routine); Ordered 08/28/22 Ordered By: China Robbins Additional Instructions: -Ricki should see neurology (provider of choice) for f/u stroke in 3-4 weeks. [facility] may be the closest place to be seen. We are recommending a 28d Zio patch for embolic stroke work up. -aspirin and a statin for life -blood pressure management: Goal is 120-140/60-90 or less. Daily amlodipine and metoprolol succinate 50mg (long acting) each day. Hold these medications for a blood pressure of 120/60 or less. If is systolic blood pressure is greater 180 and/or diastolic blood pressure is greater than 100 give a metoprolol tartrate (short acting) 25mg every four hours as indicated. Activity Level: Up with assist and Use Walker Discharge Diet: Heart Healthy (2 gm sodium, low fat) Dysphagia Food: Level 6- Soft & Bite size Dysphagia Liquid: Level 2-Mildly Thick ([place]) Follow Up Appointments: [facility] [Provider Group] ([facility] neurology eval. establish care post stroke on or before 09/22/22.) [facility] [place] [Outside] (Patient being discharged to [facility] Admit to: SNF Discharge Potential: Fair Length of Stay: <30 days Can use facility standing orders?: Yes Code Status: Full Code TEDs: Bilateral Knee Rehab Potential: Good Therapy: Physical Therapy, Occupational Therapy and Speech Therapy Therapy Orders: Evaluate and Treat Oxygen: No Urinary Catheter: No Lab Orders: hypercoagulable panel, results to PCP Orders are good >30 days: No Signature: Zita Price MD
--- NOTE | 2022-08-28 12:52 | CRLHL7_ITS ---
For Patients: As a result of the Century Cures Act, medical imaging exams and procedure reports are released immediately into your electronic medical record. You may view this report before your referring provider. If you have questions, please contact your health care provider. INDICATION: Constipation. TECHNIQUE: Portable view of the abdomen and pelvis. FINDINGS: Radiodense material is identified in the right hemicolon and transverse colon. This could reflect contrast mixed with stool or potentially more likely inspissated stool. Calcified splenic granulomas. No bowel obstruction or ileus. IMPRESSION: Radiodense material in the right hemicolon and transverse colon. This may simply reflect inspissated stool. Dictated by Henrique Tirado MD @ 08/28/2022 1:46:32 PM (Electronically Signed)
--- NOTE | 2022-08-28 13:15 | PC.SOCIAL ---
Discharge planning- Phone call from Dianne in admissions at the [facility]. Dianne informs that pt's prior authorization came back and they can admit pt today. Met with pt in pt's room. Provided update on short-term rehab and transportation to the facility. Pt requests that this worker update pt's brother and friend, Tato. Pt will discharge to [facility] in [place] today at 1:00 pm via non-emergency ambulance. Phone call to pt's brother, Eamon Flores, and provided update. Provided Eamon with the admission phone number at the [facility]. Eamon will follow up this afternoon. Phone call to Pt's friend, Tato, left a voicemail to provide update. Pt is needing clothes for retirement. Completed Preadmission screening. Confirmation #[id number]. Faxed ANN to the [facility]. Social work will follow up as necessary.
--- NOTE | 2022-08-28 14:41 | PC.NURSE ---
Pt alert and oriented, BP improved with medication, denies pain. No BM charted for five days. MD ordered Xray to check for bowel obstruction. Per MD, Xray OK. Updated given to SNF, pt denies any discomfort stating he has irregular BM's at baseline. Transferred to SNF via EMS.
== END 2022-08-28 14:00 | DRG 66 ==
LOC: ED 13:11 → MEDSURG 15:26
PROVIDERS: Admitting Provider Hospitalist; Emergency Provider Family Medicine; Visit Provider Hospitalist
DX: I63.9 Cerebral infarction, unspecified (principal); R47.01 Aphasia; R29.810 Facial weakness; I12.9 Hypertensive chronic kidney disease with stage 1 through stage 4 chronic kidney disease, or unspecified chronic kidney disease; N18.30 Chronic kidney disease, stage 3 unspecified; R29.701 NIHSS score 1; R47.81 Slurred speech; R47.1 Dysarthria and anarthria; R40.2412 Glasgow coma scale score 13-15, at arrival to emergency department; F15.10 Other stimulant abuse, uncomplicated; F12.90 Cannabis use, unspecified, uncomplicated; W18.30XA Fall on same level, unspecified, initial encounter; Y92.002 Bathroom of unspecified non-institutional (private) residence as the place of occurrence of the external cause
CPT/HCPCS: 36415; 51702; 51798; 70450; 70544; 70549; 70553; 71045; 72125; 74018; 74230; 80048; 80053; 80061; 80306; 81001; 82077; 82550; 82962; 83036; 83605; 83735; 84443; 84484; 85025; 85610; 85730; 86140; 87086; 92507; 92522; 92610; 92611; 93005; 93306; 94761; 97112; 97116; 97162; 97165; 97530; 97535; 99285; A9270; A9575; J0360; J1650; J2405; J7030

== ENCOUNTER 2022-08-28 13:45 | Outpatient (CLI) | payer MEDICARE, SELFPAY | END 2022-08-28 13:46 | disposition home or self-care (01) | LOC: AMB 09-02 14:27 | PROVIDERS: Visit Provider Family Medicine | DX: I63.9 Cerebral infarction, unspecified (principal) | CPT/HCPCS: A0425; A0428 ==

== ENCOUNTER 2022-12-05 14:14 | Outpatient (RCR) | payer SELFPAY | END 2023-05-15 08:41 | disposition home or self-care (01) | LOC: MOW 14:14 | PROVIDERS: Visit Provider Family Medicine | DX: Z76.0 Encounter for issue of repeat prescription (principal) | CPT/HCPCS: S5170 ==

== ENCOUNTER 2022-12-08 13:13 | Emergency (ER) | payer MEDICARE, SELFPAY ==
[2022-12-08 13:22] VITALS: BP 153/112; PULSE 77; RESP 18; TEMP 36.7; O2SAT 98
--- NOTE | 2022-12-08 15:21 | CRLHL7_ITS ---
For Patients: As a result of the Cures Act, medical imaging exams and procedure reports are released immediately into your electronic medical record. You may view this report before your referring provider. If you have questions, please contact your health care provider. Indication: Trauma. Technique: Left hand, 3 views. Comparison: None. Findings/Impression: Bones: Alignment is normal. No displaced fractures or bone lesions. Joint spaces: Unremarkable. Soft tissues: Unremarkable. Dictated by Williams Keita MD @ 12/08/2022 4:40:53 PM (Electronically Signed)
--- NOTE | 2022-12-08 16:04 | ED.NURSE ---
Social work called per Dr. Bruce's order. custom shop worker in room with patient.
--- NOTE | 2022-12-08 16:17 | ED_ITS ---
HPI - General Adult General Chief complaint: Extremity Pain/Injury, Upper Stated complaint: hand pain Time Seen by Provider: 12/08/22 13:16 Source: patient and other (Roommate) Mode of arrival: ambulatory Limitations: other (Previous stroke) History of Present Illness HPI narrative: 67-year-old male presenting with his roommate today after falling and complaining of left hand pain. Patient had a stroke several months ago, has limited mobility and has had frequent falls. He lives in a trailer with his roommate who is his best friend and takes care of him. He has limited verbal communication. Related Data Previous Rx's Medication Instructions Recorded metoprolol succinate 25 mg 50 mg (2 x 25 mg) PO DAILY #30 tabs 08/28/22 tablet,extended release 24 hr metoprolol tartrate 25 mg tablet 25 mg PO Q4H PRN hypertension #30 08/28/22 tabs amlodipine 10 mg tablet 10 mg PO DAILY #90 tabs 12/04/22 metoprolol succinate 50 mg 50 mg PO QDAY #90 tabs 12/04/22 tablet,extended release 24 hr simvastatin 20 mg tablet 20 mg PO HS #90 tabs 12/04/22 blood pressure monitor #1 ea 12/08/22 Allergies Allergy/AdvReac Type Severity Reaction Status Date / Time No Known Drug Allergies Allergy Verified 12/04/22 10:25 Review of Systems Status of ROS: Reports: 10 or more systems reviewed and unremarkable except as noted in History and below [facility] Social History What is your current living situation?: I presently have a place to live Problems where you live: oven or stove not working Problems where you live details: currently no stove In the past 12 months, utilities in danger of being shut off: no In past 12 months, lack of transportation kept you from medical appts, meetings, work, or getting things needed for daily living: no In the past 12 mos, have been you worried that your food would run out before you had money to buy more?: never true In the past 12 mos, the food you bought just didn't last and you didn't have money to buy more?: never true Smoking Status: Former smoker Do you use any of these nicotine containing products: None Second hand tobacco smoke exposure: No How often do you have a drink containing alcohol: never How often do you have six or more drinks on one occasion: Never AUDIT-C Alcohol total score: 0 Non-prescribed substance use: denies use How often does anyone, including family, friends and others, physically hurt you : never How often does anyone, including family, friends and others, insult or talk down to you: never How often does anyone, including family, friends and others, threaten you with harm: never How often does anyone, including family, friends and others, scream or curse at you: never service: No Exam Narrative: Exam Narrative: Thin patient in no acute distress. Cooperative. Follows commands. Can say a few words in a sentence. HEENT: Normocephalic atraumatic. Pupils are equally round reactive to light. Extraocular muscles are intact. Conjunctivae are moist without any icterus noted. Moist mucous membranes. Neck is soft. Cardiovascular: Heart is regular rate and rhythm. Abdomen: Soft and nontender nondistended with normal bowel sounds. Extremities: Tenderness to palpation in the center of the hand. There is no bruising ecchymosis or swelling noted. He has good range of motion of his fingers. Mild pain with making a fist. Normal radial pulse. Skin: Well perfused with scattered bruising. Patient requires 1 person assist when transferring from bed to chair. Requires a one-person assist with ambulation. Const: Vital Signs, click to edit/add: Vital Signs - 24 hr 12/08/22 13:22 Temperature 98.0 F Pulse Rate [Right Pulse Oximeter] 77 Respiratory Rate 18 Blood Pressure [Le ft Upper Arm] 153/112 H Pulse Oximetry 98 Oxygen Delivery Me thod Room Air Course Course ED Course: Did consult with social psychologist giving his living situation frequent falls. Per social psychologist, the roommate is willing to take him back home. He would like to have a walker and home health to do a home safety assessment. Patient already has PT in OT scheduled as an outpatient, 1st appointment is tomorrow. Roommate and power of rip machine operator were both consulted today and they both feel safe taking the patient back home at this time. Xray of the hand did not show any acute fractures. Vital Signs Vital signs: Initial Vital Signs Temperature 98.0 F 12/08/22 13:22 Temperature Source Temporal Artery Scan 12/08/22 13:22 Pulse Rate 77 12/08/22 13:22 Respiratory Rate 18 12/08/22 13:22 Blood Pressure 153/112 H 12/08/22 13:22 Blood Pressure Mean 125 H 12/08/22 13:22 Blood Pressure Position Sitting 12/08/22 13:22 Pulse Oximetry 98 12/08/22 13:22 Oxygen Delivery Method Room Air 12/08/22 13:22 Vital Signs Temperature 98.0 F 12/08/22 13:22 Pulse Rate 77 12/08/22 13:22 Respiratory Rate 18 12/08/22 13:22 Blood Pressure 153/112 H 12/08/22 13:22 Pulse Oximetry 98 12/08/22 13:22 Oxygen Delivery Method Room Air 12/08/22 13:22 Temperature 98.0 F 12/08/22 13:22 Pulse Rate 77 12/08/22 13:22 Respiratory Rate 18 12/08/22 13:22 Blood Pressure 153/112 H 12/08/22 13:22 Pulse Oximetry 98 12/08/22 13:22 Oxygen Delivery Method Room Air 12/08/22 13:22 Medical Decision Making MDM Narrative Medical decision making narrative: 67-year-old male status post stroke with frequent falls. Hand pain today secondary to fall and contusion, no fractures visualized. environmental services attendant consult done and plan per above. Imaging Data X-ray hand: Attestation: I have reviewed the pertinent imaging results. Radiologist's impression: Left hand, 3 views. Comparison: None. Findings/Impression: Bones: Alignment is normal. No displaced fractures or bone lesions. Joint spaces: Unremarkable. Soft tissues: Unremarkable. Discharge Plan Discharge Clinical Impression: Hand pain, Fall Patient Disposition: Home w/ Parent or Adult Condition: Stable Additional Instructions: Continue with PT and OT. Prescriptions: No Action amlodipine 10 mg tablet 10 mg PO DAILY Qty: 90 3RF metoprolol succinate 50 mg tablet extended release 24 hr 50 mg PO QDAY Qty: 90 3RF simvastatin 20 mg tablet 20 mg PO HS Qty: 90 3RF metoprolol succinate 25 mg Tablet Extended Release 24 Hr 50 mg PO DAILY Qty: 30 0RF metoprolol tartrate 25 mg Tablet 25 mg PO Q4H PRN (Reason: hypertension) Qty: 30 0RF Rx Instructions: Give for systolic blood pressure 180 or greater or diastolic blood pressure 100 or greater (DME) blood pressure monitor Kit See Rx Instructions .ROUTE .[facility] Qty: 1 0RF Rx Instructions: As directed Follow Up/Referrals: Franko Calderón MD [Primary Care Provider] - Stand Alone Forms: [employer] Info Instructions
--- NOTE | 2022-12-08 17:05 | PC.SOCIAL ---
Social work: Met with pt and friend, Tato Marcelino, in the emergency room. Tato called pt's brother, Eamon who is pt's POA and is in [place]. Eamon states he is working on hiring mobile homes repairer care through [facility] but does not have it set up yet. He will continue to work on this. Per family and friend, pt had a very bad experience at [facility] and will not go to another [facility] facility. Per Tato, pt has an out pt pt/ot appointment at [facility] at 1:30pm tomorrow. Tato will be bringing him. Tato and brother are interested in a home safety eval to determine if there is more equipment that is needed to keep pt safely at home as he has been falling. Tato states he has heard there is a narrow walker that may work in the house he is i that has small hallways. Tato and Eamon feel pt will be safe at home at discharge today. Pt voices that he wants to go home. At Tato's request, called Rosas Valentin who he thought was being sent a prescription from at clinic for blood pressure machine and toilet seat. Per staff at [facility], they have not received this prescription. Tato states he has a hard copy of it and will bring it to [facility] tomorrow. Tato has this social studies teacher's phone number if additional resources are needed.
== END 2022-12-08 16:55 | disposition home or self-care (01) ==
PROVIDERS: Emergency Provider Family Medicine; PCP Family Medicine
DX: M79.642 Pain in left hand (principal); W19.XXXA Unspecified fall, initial encounter
CPT/HCPCS: 73130; 99283; 99284

== ENCOUNTER 2022-12-09 13:54 | Outpatient (RCR) | payer MEDICARE, SELFPAY ==
--- NOTE | 2022-12-11 16:14 | OT.OPGNE ---
OT Outpatient General/Neuro Eval OT Outpatient General/Neuro Eval Start: 12/09/22 16:27 Freq: Status: Active Protocol: Document 12/09/22 16:40 SMW (Rec: 12/11/22 16:12 SMW [id number]) E-signed By Francoise Lizarraga OT OT Outpatient Evaluation Details Type Type Eval Complexity Low Insurance Information Insurance Information Insurance Information AARP Outpatient History/Precautions Medical/Functional History Medical History Reviewed Yes Prior Level of Function/Mobility Prior to CVA in August of 2022, patient was independent in all ADLs, IADLs and mobility. 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 Current Condition Treatment Diagnosis 163.9 Date of Onset 09/05 Social History Type of Dwelling Mobile Home Number of Floors (Floors) 1 Number of Stairs to Enter (Stairs) 3 Lives With: longtime roommate/friend Physical Barriers in Home Environment Level, No Step Employment Status Retired Oriented Patient Orientation Person Precautions General Precautions Patient is a fall risk Prior Medical History Prior Medical History arthritis Patient Subjective Subjective Patient Subjective Patient has very limited language skills. Is very labile when talked to during conversations Pain Assessment Pain Left Wrist Pain Description Acute Pain Description Other Pt. had fall on 12/08/22 resulting in left wrist pain. Negative for fracture Home Maintenance Assessment ADL Oral Care Ability Minimum Assistance Bathing Ability Maximum Assistance Eating (Feeding) Ability Minimum Assistance Upper Body Dressing Ability Minimum Assistance Lower Body Dressing Ability Moderate Assistance Grooming Ability Minimum Assistance Toileting Ability Moderate Assistance Ambulation Ability Moderate Assistance,1 Person Assist Home Management Meal Preparation Ability Total Assistance Cleaning Ability Total Assistance Shopping Ability Total Assistance Assistance Assistance Currently Received Patient lives with his long time roommate/best friend who is assisting him as able. Brother who lives in [place] is OLIVIA. He is trying to set up nursing home assistant administrator care to relieve burden on Tato, his roommate. Assessment Assessment Assessment The patient is a 67 year old male referred to the outpatient OT clinic with a diagnosis of CVA. The patient was hospitalized in August of 2022 and subsequently discharged to a SNF for rehab until the end of October. He was discharged back to his previous living situation which includes an older mobile home with his long time roommate/friend. Since being home, it has been very difficult for patient and his friend to manage day to day activities. He requires min to max assist for all ADLs. His friend has done some modifications in the home to attempt to make tasks easier. The patient's brother, who lives in [place] and has POA is trying to set up nursing home assistant administrator care to relieve some of the burden of care. The patient has very limited language and if he does attempt to verbalize, he is very difficult to understand. He is very labile, often will start to cry when spoken to. He presents as somewhat unkempt as well. Discussed current situation with the patient, friend and friend who drove to clinic today. Recommend home care at this time due to difficulty getting patient to the clinic and inability to effectively transfer skills learned to his home environment. Patient has a face to face appointment with his primary care physician on 12/17/22. Occupational Therapy Treatment Plan - OP Goals Goals Evaluation only Treatment Plan Treatment Plan Evaluation Comment Summary Coordination of care initiated to include steps to access homecare services. Home care services more appropriate for patient at this time. Certification Certification I Certify That: Therapy Services Provided, Therapy Plan Established, Therapy Plan Reviewed
== END 2023-04-08 23:59 | disposition home or self-care (01) ==
PROVIDERS: PCP Family Medicine; Visit Provider Family Medicine
DX: I63.9 Cerebral infarction, unspecified (principal); Z51.89 Encounter for other specified aftercare
CPT/HCPCS: 97165; 97535

== ENCOUNTER 2023-07-07 14:18 | Outpatient (CLI) | payer MEDICARE, SELFPAY ==
--- OUTSIDE RECORDS SUMMARY | 2023-07-07 14:23 | XMS_ITS | Clinical Summary ---
Author Name Unknown Organization [facility] Address [place], [place] [address] Care Team Providers Care General Cargo Clerk Name Role Phone Pcp, No Primary Care Provider Unavailabl e Allergies No known active allergies Medications Medication Sig Dispensed Refills Start Date End Date Status multivitamins-mineral s-lutein (CENTRUM SILVER) 0.4-300-250 mg-mcg-mcg Tab Take 1 tablet by mouth once daily. 0 08/25/2012 Active chlorthalidone (HYGROTON) 50 mg tabletIndications:Hyp ertension, unspecified type Take 1 tablet by mouth once daily. 30 tablet 6 01/22/2018 Active zolpidem (AMBIEN) 5 mg tabletIndications:Ins omnia, idiopathic Take 1 tablet by mouth at bedtime if needed for Sleep. 7 tablet 02/02/2018 Active ascorbic acid, vitamin C, (VITAMIN C) 500 mg tablet Take 1 tablet by mouth once daily. 0 02/17/2018 Active Active Problems Problem Noted Date Diagnosed Date HTN (hypertension) 02/17/2018 Rotator cuff tear 04/06/2014 Low back pain 12/29/2013 Encounters Date Type Department Care Team Description 05/14/2023 Telephone [facility] [address] [facility] [address] [place] [id number] Santosh Moe MD Prior Authorization (LINQ) 05/12/2023 Telephone [facility] [address] [place] [address] [address] [id number] Santosh Moe MD Questions (Loop recorder recommendations persist) from Last 3 Months Immunizations Name Administration Dates Next Due Influenza, IIV3 (Age >=3 years) 01/06/2014,12/10,12/13/2010,01/04/2010 Influenza, IIV4 (=>6mos) MDV 01/05/2015 Tdap 08/30/2014 Family History Medical History Relation Name Comments Other Father lung cancer Relation Name Status Comments Father Mother Alive Social History Tobacco Use Types Packs/Day Years Used Date Smoking Tobacco: Former Cigarettes Q uit: 04/17/2003 Smokeless Tobacco: Never Tobacco Cessation:Counseling Given: Yes Alcohol Use Standard Drinks/Week Comments No 0 (1 standard drink = 0.6 oz pur e alcohol) PHQ-2 Answer Date Recorded PHQ-2 Score 1 05/16/2018 Social Connections Answer Date Recorded Frequency of Communication with Friends and Fami ly Not on file 01/09/2023 Sex and Gender Information Value Date Recorded Sex Assigned at Not on file Gender Identity Not on file Sexual Orientation Not on file Obstetrics History Last Filed Vital Signs Vital Sign Reading Time Taken Comments Blood Pressure 138/90 07/19/2018 10:33 AM CDT Pulse 86 07/19/2018 10:31 AM CDT Temperature 36.8 ??C (98.3 ??F) 07/19/2018 10:31 AM C DT Respiratory Rate - - Oxygen Saturation 98% 07/19/2018 10:31 AM CDT Inhaled Oxygen Concentration - - Weight 67.6 kg (149 lb) 07/19/2018 10:31 AM CDT Height 179 cm (5' 10.47) 02/17/2018 10:20 AM CS T Body Mass Index 21.09 02/17/2018 10:20 AM PIGS FEET CLEANER Plan of Treatment Health Maintenance Due Date Last Done Comments Hepatitis C screening for ag e 18-79 1972 Colonoscopy through age 75 08/20/1999 Zoster (shingles) series for age 50+ (1 of 2) 2004 BMI (ht and wt on same day) for age 18+ 02/17/2019 02/17/2018, 02/02/2018, 12/19/2016, Additional history exists Depression screening for age 12+ 02/17/2019 02/18/20 18, 01/14/2016 Medicare Wellness for age 65+ 08/20/2019 Pneumococcal series for age 65+ (1 of 1 - PCV) 08/20/2019 COVID-19 vaccine series (4 - 2022-24 season) 2022 03/28/2021, 11/13/2020, 10/23/2020 Lipids for age 45-75 02/17/2023 02/17/2018, 08/26/19 13 Influenza for age 65+ 11/15/2023 01/05/2015 , 01/06/2014, 12/11/2011, Additional history exists Tetanus booster 08/30/2024 08/30/2014 Tdap Completed 08/30/2014 Procedures Procedure Name Priority Date/Time Associated Diagnosis Comments LIPID PANEL W REFLEX MEASURED LDL Routine 02/17/2018 11:00 AM PIGS FEET CLEANER Lipid screening from Last 3 Months or Most Recently Relevant to Health Maintenance Results * LIPID PANEL W REFLEX MEASURED LDL (02/17/2018 11:00 AM PIGS FEET CLEANER) CHOLESTEROL,TOTAL 164 100 - 199 mg/dL 02/17/2018 9:23 PM PIGS FEET CLEANER [facility] TRIGLYCERIDES 100 <150 mg/dL 02/17/2018 9:23 PM PIGS FEET CLEANER [facility] HDL CHOLESTEROL 52 >40 mg/dL 8 9:23 PM PIGS FEET CLEANER [facility] NON-HDL CHOLESTEROL 112 <145 mg/dl 02/17/2018 9:23 PM PIGS FEET CLEANER [facility] CHOL/HDL RATIO 3.15 <4.50 02/17/2018 9:23 PM PIGS FEET CLEANER [facility] LDL CHOLESTEROL 92 <=130 mg/dL 02/17/2018 9:23 PM PIGS FEET CLEANER [facility] PROVIDER ORDERED STATUS RANDOM 02/17/2018 9:23 PM PIGS FEET CLEANER [facility] Blood BLOOD SPECIMEN / Unknown Venipuncture / Unknown 02/17/2018 11:00 AM PIGS FEET CLEANER 02/17/2018 11:04 AM PIGS FEET CLEANER Luigi Steele MD [facility] [address] [place] [address], from Last 3 Months or Most Recently Relevant to Health Maintenance Care Teams General Cargo Clerk Relationship Specialty Start Date End Date Pcp, No . PCP - General 08/06/20
== END 2023-07-07 14:19 | disposition home or self-care (01) ==
PROVIDERS: PCP Family Medicine; Visit Provider Internal Medicine
DX: I10 Essential (primary) hypertension (principal); Z86.73 Personal history of transient ischemic attack (TIA), and cerebral infarction without residual deficits
CPT/HCPCS: 80048; 80061

== ENCOUNTER 2024-04-06 13:17 | Emergency (ER) | payer MEDICARE, SELFPAY ==
--- OUTSIDE RECORDS SUMMARY | 2024-04-06 13:22 | XMS_ITS | Clinical Summary ---
Author Organization [facility] Address [place], [place] [address] Care Team Providers Care Courtroom Clerk Name Role Phone Pcp, No Primary Care Provider Unavailabl e Allergies No known active allergies Medications multivitamins-mi nerals-lutein (CENTRUM SILVER) 0.4-300-250 mg-mcg-mcg Tab Take 1 tablet by mouth once daily. 0 08/25/2012 Active chlorthalidone (HYGROTON) 50 mg tabletIndication s:Hypertension, unspecified type Take 1 tablet by mouth once daily. 30 tablet 6 01/22/2018 Active zolpidem (AMBIEN) 5 mg tabletIndication s:Insomnia, idiopathic Take 1 tablet by mouth at bedtime if needed for Sleep. 7 tablet 02/02/2018 Active ascorbic acid, vitamin C, (VITAMIN C) 500 mg tablet Take 1 tablet by mouth once daily. 0 02/17/2018 Active Active Problems Problem Noted Date Diagnosed Date HTN (hypertension) 02/17/2018 Rotator cuff tear 04/06/2014 Low back pain 12/29/2013 Immunizations Name Administration Dates Next Due Influenza, [...] Recorded Sex Assigned at Not on file Legal Sex Male 6:26 AM UNIT EDUCATOR Gender Identity Not on file Sexual Orientation Not on file Obstetrics History Last Filed Vital Signs Vital Sign Reading Time Taken Comments Blood Pressure 138/90 07/19/2018 10:33 AM CDT Pulse 86 07/19/2018 10:31 AM CDT Temperature 36.8 C (98.3 F) 07/19/2018 10:31 AM CDT Respiratory Rate - - Oxygen Saturation 98% 07/19/2018 10:31 AM CDT Inhaled Oxygen Concentration - - Weight 67.6 kg (149 lb) 07/19/2018 10:31 AM CDT Height 179 cm (5' 10.47) 02/17/2018 10:20 AM CS T Body Mass Index 21.09 02/17/2018 10:20 AM UNIT EDUCATOR Plan of Treatment Health Maintenance Due Date Last Done Comments Hepatitis C screening for ag e 18-79 1972 Pneumococcal series for age 50+ (1 of 2 - PCV) 1973 Colonoscopy through age 75 08/20/1999 Zoster (shingles) series for age 50+ (1 of 2) 2004 BMI (ht and wt on same day) for age 18+ 02/17/2019 02/17/2018, 02/02/2018, 12/19/2016, Additional history exists Depression screening for age 12+ 02/17/2019 02/18/20 18, 01/14/2016 Medicare Wellness for age 65+ 08/20/2019 Lipids for age 45-75 02/17/2023 02/17/2018, 08/26/19 13 COVID-19 vaccine series (2023- season) 2023 03/28/2021, 11/13/2020, 10/23/2020 Influenza for age 65+ 11/15/2023 01/05/2015 , 01/06/2014, 12/11/2011, Additional history exists Tetanus booster 08/30/2024 08/30/2014 RSV vaccine for adults or (1 - 1-dose 75+ series) 2029 Tdap Completed 08/30/2014 Procedures Procedure Name Priority Date/Time Associated Diagnosis Comments LIPID PANEL W REFLEX MEASURED LDL Routine 02/17/2018 11:00 AM UNIT EDUCATOR Lipid screening from Last 3 Months or Most Recently Relevant to Health Maintenance Results * LIPID PANEL W REFLEX MEASURED LDL (02/17/2018 11:00 AM UNIT EDUCATOR) CHOLESTEROL,TOTAL 164 100 - 199 mg/dL 02/17/2018 9:23 PM UNIT EDUCATOR [facility] TRIGLYCERIDES 100 <150 mg/dL 02/17/2018 9:23 PM UNIT EDUCATOR [facility] HDL CHOLESTEROL 52 >40 mg/dL 8 9:23 PM UNIT EDUCATOR [facility] NON-HDL CHOLESTEROL 112 <145 mg/dl 02/17/2018 9:23 PM UNIT EDUCATOR [facility] CHOL/HDL RATIO 3.15 <4.50 02/17/2018 9:23 PM UNIT EDUCATOR [facility] LDL CHOLESTEROL 92 <=130 mg/dL 02/17/2018 9:23 PM [facility] PROVIDER ORDERED STATUS RANDOM 02/17/2018 9:23 PM [facility] Blood BLOOD SPECIMEN / Unknown Venipuncture / Unknown 02/17/2018 11:00 AM UNIT EDUCATOR 02/17/2018 11:04 AM UNIT EDUCATOR Luigi Steele MD CHEMISTRY Final Resu lt [facility] [address] [place] [address], from Last 3 Months or Most Recently Relevant to Health Maintenance Insurance [facility] [employer] MR/MSHO * Guarantor: SUSHANT FLORES Account Type Relation to Patient Date of Phone Billing Address [facility] [address] [place] [address] [facility] Care Teams Courtroom Clerk Relationship Specialty Start Date End Date Pcp, No . PCP - General 08/06/20
[2024-04-06 13:25] VITALS: BP 122/84; PULSE 82; RESP 16; TEMP 36.9; O2SAT 98; BMI 21.3
--- NOTE | 2024-04-06 13:49 | ED.GENADULT ---
HPI - General Adult General Time Seen by Provider: 13:49 Date Seen: 04/06/24 Chief complaint: Cough Stated complaint: Aches, cough, fever, diahrea Time Seen by Provider: 04/06/24 13:33 Source: patient and RN notes reviewed Mode of arrival: ambulatory Limitations: no limitations History of Present Illness HPI narrative: This this 68-year-old male is coming in with concern of body aches, coughing, fevers at home and diarrhea. The diarrhea has not been noted to be bloody. 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 He has been sick for about 3 days. He has been coughing up some phlegm. His oral appetite has been diminished from what he usually takes in, has not been wanting to eat. He has been sleeping more. [facility]iting angels came to see him today and he was complaining of not feeling well. They recommended he be evaluated. He is not noted to have any vomiting, is not answering yes to abdominal pain. Unknown as far as ill exposures. His friend notes that he has been drinking a lot of fluids. Related Data Home Medications ?Medication ?Instructions ?Recorded ?Confirmed aspirin 81 mg tablet,delayed 81 mg PO QDAY 12/17/22 04/06/24 release (Adult Low Dose Aspirin) polyethylene glycol 3350 17 17 g PO QDAY PRN 02/23/23 04/06/24 gram/dose oral powder (Miralax) bisacodyl 5 mg tablet,delayed 5 mg PO QDAY 12/14/23 04/06/24 release Previous Rx's ?Medication ?Instructions ?Recorded blood pressure monitor #1 ea 12/08/22 pravastatin 10 mg tablet 10 mg PO QDAY #90 tabs 10/14/23 amlodipine 10 mg tablet 10 mg PO DAILY #90 tabs 12/14/23 Allergies Allergy/AdvReac Type Severity Reaction Status Date / Time No Known Drug Allergies Allergy Verified 04/06/24 13:32 Review of Systems Status of ROS: Reports: unobtainable due to medical condition Narrative: Patient not really attempting to give answers or shake his head at this point. Most of the history is from his friend that is with him. [facility] PFS Surgical History History of cataract surgery ?Z98.49 - Cataract extraction status, unspecified eye (ICD-10) Social History What is your current living situation?: I presently have a place to live Problems where you live: oven or stove not working Problems where you live details: currently no stove In the past 12 months, utilities in danger of being shut off: no In past 12 months, lack of transportation kept you from medical appts, meetings, work, or getting things needed for daily living: no In the past 12 mos, have been you worried that your food would run out before you had money to buy more?: never true In the past 12 mos, the food you bought just didn't last and you didn't have money to buy more?: never true Smoking Status: Former smoker Do you use any of these nicotine containing products: None Second hand tobacco smoke exposure: No How often do you have a drink containing alcohol: never How often do you have six or more drinks on one occasion: Never AUDIT-C Alcohol total score: 0 Non-prescribed substance use: denies use How often does anyone, including family, friends and others, physically hurt you: never How often does anyone, including family, friends and others, insult or talk down to you: never How often does anyone, including family, friends and others, threaten you with harm: never How often does anyone, including family, friends and others, scream or curse at you: never service: No Health Related Social Needs: Inadequate housing (Z59.1) Exam Const: Vital Signs, click to edit/add: Vital Signs - 24 hr 04/06/24 13:25 Temperature 98.5 F Pulse Rate [Pulse Oximeter] 82 Respiratory Rate 16 Blood Pressure [Ri ght Upper Arm] 122/84 Pulse Oximetry 98 Oxygen Delivery Me thod Room Air Patient is sitting up on the edge of the bed in exam room 1, he is alert, interactive, no apparent stress. Sclera clear, conjugate gaze. Oropharynx with well-hydrated mucosa, no exudates or erythema. Neck is supple, no adenopathy, no jugular venous distension. Lungs are clear, good air entry, no wheezing or crackles, no tachypnea, no accessory muscle use. CV regular rate and rhythm, no murmur, normal S1-S2, no S3-S4. Abdomen is not distended, it is soft, nontender, do not feel any masses. No rash or edema noted. Documenting provider has reviewed patient's vital signs: yes Course Course ED Course: Nursing staff has appropriately collected the triple viral swab. Will get portable chest x-ray, check some basic labs. His abdominal exam is benign, no pain or distension at this time. Will await labs and consider imaging if needed. This certainly could be viral upper respiratory infection with some diarrhea as a result of the viral infection. Doubt C difficile given his benign presentation. There is also nor virus to consider as it is going around. Right now he does not have abnormal vital signs, oropharynx looks well hydrated. Will see what his labs show. Norovirus will be largely supportive care. Reevaluation(s) Time of Reevaluation #1: 15:01 Reevaluation #1: Triple viral swab has come back negative. He has subtle chest x-ray changes that seem to be consistent with a viral pattern. White blood count is normal. Will proceed with flat and upright of his abdomen just to look at potential abdominal bowel pathology. Time of Reevaluation #2: 16:19 Reevaluation #2: Patient does talk now, points to his IV, is stating that he wants it out, speech is definitely mumbly in nature but he looks fine. Did give him copies of his chest x-ray and imaging of his abdominal films. With just a few days of illness, this really is looking like viral. Antibiotics are doubtful to help with his respiratory status given his labs all look reassuring. Certainly antibiotics are likely to make diarrhea worse. There are other viruses outside of influenza and COVID that can give both GI and respiratory symptoms. It is possible that he could have a mild case of COVID or influenza as well and is having a false negative swab. At this time I think the best course is for watchful waiting and observation. Encourage fluids. Appetite for solids will improve as he feels better. Vital Signs Vital signs: Initial Vital Signs Temperature 98.5 F 04/06/24 13:25 Temperature Source Temporal Artery Scan 04/06/24 13:25 Pulse Rate 82 04/06/24 13:25 Respiratory Rate 16 04/06/24 13:25 Blood Pressure 122/84 04/06/24 13:25 Blood Pressure Mean 96 04/06/24 13:25 Blood Pressure Position Sitting 04/06/24 13:25 Pulse Oximetry 98 04/06/24 13:25 Oxygen Delivery Method Room Air 04/06/24 13:25 Vital Signs Temperature 98.5 F 04/06/24 13:25 Pulse Rate 82 04/06/24 13:25 Respiratory Rate 16 04/06/24 13:25 Blood Pressure 122/84 04/06/24 13:25 Pulse Oximetry 98 04/06/24 13:25 Oxygen Delivery Method Room Air 04/06/24 13:25 Temperature 98.5 F 04/06/24 13:25 Pulse Rate 82 04/06/24 13:25 Respiratory Rate 16 04/06/24 13:25 Blood Pressure 122/84 04/06/24 13:25 Pulse Oximetry 98 04/06/24 13:25 Oxygen Delivery Method Room Air 04/06/24 13:25 Medical Decision Making Lab Data Lab results reviewed: Yes I reviewed the patient's lab results Labs: Lab Results 04/06/24 04/06/24 Range/Units 13:38 14:30 WBC 6.90 (4.50-11.00) K/uL RBC 4.44 (4.30-5.90) m/uL Hgb 13.5 (13.5-17.5) gm/dL Hct 41.9 (37.0-53.0) % MCV 94 (80-100) fL MCH 30 (26-34) pg MCHC 32 (32-36) gm/dL RDW Coeff of Caprice 12.7 (11.5-15.5) % Plt Count 220 (140-440) K/uL Neut % (Auto) 62.0 (42.0-72.0) % Lymph % (Auto) 19.1 L (20-44) % Barton % (Auto) 8.6 (0.0-11.0) % Eos % (Auto) 9.6 H (0.0-7.0) % Baso % (Auto) 0.7 (0.0-3.0) % Neut # (Auto) 4.28 (1.7-7.0) K/uL Lymph # (Auto) 1.30 (0.90-2.90) K/uL Barton # (Auto) 0.60 (0.00-0.90) K/UL Eos # (Auto) 0.70 H (0.00-0.50) K/uL Baso # (Auto) 0.05 (0.00-0.30) K/uL Abs Immat Gran (auto) 0.00 (0.00-0.30) K/uL Imm/Tot Granulo (auto) 0.0 % Sodium 141 (135-149) mmol/L Potassium 4.3 (3.6-5.1) mmol/L Chloride 108 (96-114) mmol/L Carbon Dioxide 25 (20-32) mmol/L Anion Gap 8 (7-15) mEq/L BUN 24 (7-30) mg/dL Creatinine 1.0 (0.5-1.5) mg/dL Estimated Creat Clear 62.62 Estimated GFR 81 ml/min Glucose 99 (60-115) mg/dL Lactate 1.1 (0.5-1.9) mmol/L Calcium 9.1 (8.4-10.6) mg/dL Magnesium 1.9 (1.5-2.6) mg/dL Total Bilirubin 0.5 (0.1-1.5) mg/dL AST 17 (12-35) U/L ALT 17 (4-50) U/L Alkaline Phosphatase 52 (40-150) U/L C-Reactive Protein < 0.5 L (0.5-1.0) mg/dL Total Protein 7.7 (6.0-8.3) g/dL Albumin 4.3 (3.3-5.0) g/dL Procalcitonin 0.05 (<0.50) ng/mL SARS-CoV-2 (PCR) Negative SARS-CoV-2 (Negative) Influenza Type A (PCR) Negative PCR FLU A (Negative) Influenza Type B (PCR) Negative PCR FLU B (Negative) RSV (PCR) Negative PCR RSV (Negative) Imaging Data Chest x-ray: Attestation: I have reviewed the pertinent imaging results. Radiologist's impression: Patient: SUSHANT VIRGEN Facility:?[facility] Patient ID:?[id number] Site Patient ID:?[id number]. Site :?[id number] Study:?XRay-Chest 1V-04/06/2024 2:35:35 PM Ordering Physician:Kevin Urbina Final Report: INDICATION: Cough. TECHNIQUE: Chest 1 views. COMPARISON: None. FINDINGS: Cardiovascular and mediastinum: Cardiomediastinal silhouette is within normal limits. Lungs and pleural spaces: Subtle diffuse interstitial opacities. Probable left upper lobe calcified granuloma measuring approximately 14 millimeters. Subtle fluid in the minor fissure. No sign of pleural effusion. No pneumothorax. Bones and soft tissues: Unremarkable for age. IMPRESSION: Subtle diffuse interstitial opacities likely related to viral infection or other airways disease. Dictated by Elena Sosa MD @ 04/06/2024 2:44:32 PM (Electronic Signature) Abdominal x-ray: Attestation: I have reviewed the pertinent imaging results. My impression: See some gas in the upper abdomen but do not think that these are excessively dilated, certainly do not see any air-fluid levels. Await Radiology over-read. Radiologist's impression: Patient: SUSHANT VIRGEN Facility:?[facility] Patient ID:?[id number] Site Patient ID:?[id number]. Site :?[id number] Study:?XRay-Abdomen/Pelvis 2V-04/06/2024 3:38:54 PM Ordering Physician:Kevin Urbina Final Report: Indication: Abdomen pain. Technique: Abdomen 2 view. Comparison: None. Findings: Bowel: Bowel pattern is unremarkable. Mild gaseous distention the large bowel. Average colonic stool volume. Other: No sign of free air. Subtle bibasilar airspace opacities. No sign of soft tissue mass. No suspicious calcifications. Osseous structures are unremarkable for age. Impression: Mild gaseous distention of the bowel loops. Otherwise unremarkable abdomen. Basilar airspace opacities may reflect atelectasis, aspiration or infection. Dictated by Elena Sosa MD @ 04/06/2024 3:48:25 PM (Electronic Signature) Discharge Plan Discharge Clinical Impression: Upper respiratory infection, viral Diarrhea Qualifiers: Diarrhea type: unspecified type Qualified Code(s): R19.7 - Diarrhea, unspecified Patient Disposition: Home w/ Parent or Adult Condition: Stable Instructions: Upper Respiratory Infection (ED), Acute Diarrhea (ED), Nutrition Tips for Relief of Diarrhea (ED) Additional Instructions: Drink plenty of fluids, appetite for solids will improve as you feel better. Need to watch for fevers, increasing cough or shortness of breath, difficulty breathing. If your diarrhea is worsening and not improving, have further concerns, need to seek re-evaluation. Antibiotics will not help viruses which is what this seems to be at this point. I would hope that you would start to improve in the next few days as far as diarrhea. Activity Level: Activity as Tolerated Prescriptions: No Action aspirin [Adult Low Dose Aspirin] 81 mg tablet,delayed release (DR/EC) 81 mg PO QDAY polyethylene glycol 3350 [Miralax] 17 gram/dose powder 17 g PO QDAY PRN bisacodyl 5 mg tablet,delayed release (DR/EC) 5 mg PO QDAY amlodipine 10 mg tablet 10 mg PO DAILY Qty: 90 3RF (DME) blood pressure monitor Kit See Rx Instructions .ROUTE .MEDSUPPLY Qty: 1 0RF Rx Instructions: As directed pravastatin 10 mg tablet 10 mg PO QDAY Qty: 90 2RF Follow Up/Referrals: Francesca Tsai MD [Primary Care Provider] - Stand Alone Forms: [employer] Info Instructions
--- NOTE | 2024-04-06 14:00 | CRLHL7_ITS ---
For Patients: As a result of the Cures Act, medical imaging exams and procedure reports are released immediately into your electronic medical record. You may view this report before your referring provider. If you have questions, please contact your health care provider. INDICATION: Cough. TECHNIQUE: Chest 1 views. COMPARISON: None. FINDINGS: Cardiovascular and mediastinum: Cardiomediastinal silhouette is within normal limits. Lungs and pleural spaces: Subtle diffuse interstitial opacities. Probable left upper lobe calcified granuloma measuring approximately 14 millimeters. Subtle fluid in the minor fissure. No sign of pleural effusion. No pneumothorax. Bones and soft tissues: Unremarkable for age. IMPRESSION: Subtle diffuse interstitial opacities likely related to viral infection or other airways disease. Dictated by Elena Sosa MD @ 04/06/2024 2:44:32 PM (Electronically Signed)
--- OUTSIDE RECORDS SUMMARY | 2024-04-06 14:19 | XMS_ITS | Clinical Summary ---
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 Gender Identity Not on file Sexual Orientation [...] Body Mass Index 21.09 02/17/2018 10:20 AM SENIOR TAX MANAGER Plan of Treatment Health Maintenance Due Date [...] REFLEX MEASURED LDL Routine 02/17/2018 11:00 AM SENIOR TAX MANAGER Lipid screening from Last 3 Months or Most Recently Relevant to Health Maintenance Results * LIPID PANEL W REFLEX MEASURED LDL (02/17/2018 11:00 AM SENIOR TAX MANAGER) CHOLESTEROL,TOTAL 164 100 - 199 mg/dL 02/17/2018 9:23 PM SENIOR TAX MANAGER [facility] TRIGLYCERIDES 100 <150 mg/dL 02/17/2018 9:23 PM SENIOR TAX MANAGER [facility] HDL CHOLESTEROL 52 >40 mg/dL 8 9:23 PM SENIOR TAX MANAGER [facility] NON-HDL CHOLESTEROL 112 <145 mg/dl 02/17/2018 9:23 PM SENIOR TAX MANAGER [facility] CHOL/HDL RATIO 3.15 <4.50 02/17/2018 9:23 PM SENIOR TAX MANAGER [facility] LDL CHOLESTEROL 92 <=130 mg/dL 02/17/2018 9:23 PM [facility] PROVIDER ORDERED STATUS RANDOM 02/17/2018 9:23 PM [facility] Blood BLOOD SPECIMEN / Unknown Venipuncture / Unknown 02/17/2018 11:00 AM SENIOR TAX MANAGER 02/17/2018 11:04 AM SENIOR TAX MANAGER Luigi Steele MD CHEMISTRY Final Resu lt [facility] [address] [place] [address], from Last 3 Months or Most Recently Relevant to Health Maintenance Insurance [facility] [place] [id number] * Guarantor: SUSHANT FLORES Account Type Relation to Patient Date of Phone Billing Address Workers [facility] [address] [place] [address] [facility] Care Teams Aircraft Inspector Relationship Specialty Start Date End Date Pcp, No . PCP - General 08/06/20
[2024-04-06 14:21] LABS: PCR FLU A Negative PCR FLU A (Negative); PCR FLU B Negative PCR FLU B (Negative); PCR RSV Negative PCR RSV (Negative); SARS PCR* Negative SARS-CoV-2 (Negative)
[2024-04-06 14:33] LABS: Lactate* 1.1 mmol/L (0.5-1.9)
[2024-04-06 14:34] LABS: Basophils Absolute Auto 0.05 K/uL (0.00-0.30); Basophils Percent Auto 0.7 % (0.0-3.0); Eosinophils Percent Auto 9.6 % (0.0-7.0); Hematocrit 41.9 % (37.0-53.0); Hemoglobin* 13.5 gm/dL (13.5-17.5); Lymphocytes Percent Auto 19.1 % (20-44); Mean Corpuscular HGB Conc 32 gm/dL (32-36); Mean Corpuscular Hemoglobin 30 pg (26-34); Mean Corpuscular Volume 94 fL (80-100); Monocytes Percent Auto 8.6 % (0.0-11.0); Neutrophils Absolute Auto 4.28 K/uL (1.7-7.0); Platelet Count* 220 K/uL (140-440); RDW Coefficient of Variation % 12.7 % (11.5-15.5); Red Blood Count 4.44 m/uL (4.30-5.90)
[2024-04-06 14:51] LABS: Slide Review Reflex No
[2024-04-06 14:53] LABS: Albumin* 4.3 g/dL (3.3-5.0); Chloride* 108 mmol/L (96-114)
[2024-04-06 14:54] LABS: Potassium* 4.3 mmol/L (3.6-5.1); Sodium* 141 mmol/L (135-149)
[2024-04-06 14:56] LABS: Est. Creatinine Clearance* 62.62; Estimated Glomerular Filt Rate 81 ml/min; Magnesium* 1.9 mg/dL (1.5-2.6)
[2024-04-06 14:57] LABS: Alanine Aminotransferase* 17 U/L (4-50); Alkaline Phosphatase* 52 U/L (40-150); Anion Gap 8 mEq/L (7-15); Aspartate Amino Transferase* 17 U/L (12-35); Bilirubin Total* 0.5 mg/dL (0.1-1.5); Blood Urea Nitrogen* 24 mg/dL (7-30); Calcium* 9.1 mg/dL (8.4-10.6); Carbon Dioxide* 25 mmol/L (20-32); Glucose* 99 mg/dL (60-115); Total Protein* 7.7 g/dL (6.0-8.3)
--- NOTE | 2024-04-06 14:59 | CRLHL7_ITS ---
For Patients: As a result of the Century Cures Act, medical imaging exams and procedure reports are released immediately into your electronic medical record. You may view this report before your referring provider. If you have questions, please contact your health care provider. Indication: Abdomen pain. Technique: Abdomen 2 view. Comparison: None. Findings: Bowel: Bowel pattern is unremarkable. Mild gaseous distention the large bowel. Average colonic stool volume. Other: No sign of free air. Subtle bibasilar airspace opacities. No sign of soft tissue mass. No suspicious calcifications. Osseous structures are unremarkable for age. Impression: Mild gaseous distention of the bowel loops. Otherwise unremarkable abdomen. Basilar airspace opacities may reflect atelectasis, aspiration or infection. Dictated by Elena Sosa MD @ 04/06/2024 3:48:25 PM (Electronically Signed)
[2024-04-06 15:03] LABS: C Reactive Protein* < 0.5 mg/dL (0.5-1.0)
[2024-04-06 15:13] LABS: Procalcitonin* 0.05 ng/mL (<0.50)
== END 2024-04-06 16:31 | disposition home or self-care (01) ==
PROVIDERS: Emergency Provider Family Medicine; PCP Internal Medicine
DX: J06.9 Acute upper respiratory infection, unspecified (principal); R19.7 Diarrhea, unspecified
CPT/HCPCS: 36415; 71045; 74019; 80053; 83605; 83735; 84145; 85025; 86140; 87631; 94761; 99283; 99284; 99285

== ENCOUNTER 2024-06-06 13:37 | Inpatient (IN) | payer MEDICARE, SELFPAY ==
[2024-06-06] VITALS (8 sets, daily range): BP systolic 112–136; BP diastolic 77–94; PULSE 68–85; RESP 14–18; TEMP 36.4–37.1; O2SAT 94–98; BMI 17.7; BMI 17.6
--- OUTSIDE RECORDS SUMMARY | 2024-06-06 13:39 | XMS_ITS | Clinical Summary ---
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 COLLAR MAKER Gender Identity Not on file Sexual Orientation [...] Body Mass Index 21.09 02/17/2018 10:20 AM TOP COLLAR MAKER Plan of Treatment Health Maintenance Due Date Last Done Comments Hepatitis C screening for ag e 18-79 1972 Colonoscopy through age 75 08/20/1999 Pneumococcal series for age 50+ (1 of 1 - PCV) 2004 Zoster (shingles) series for age 50+ (1 of 2) 2004 BMI (ht and wt on same day) for age 18+ 02/17/2019 02/17/2018, 02/02/2018, 12/19/2016, Additional history exists Depression screening for age 12+ 02/17/2019 02/18/20 18, 01/14/2016 Medicare Wellness for age 65+ 08/20/2019 Lipids for age 45-75 02/17/2023 02/17/2018, 08/26/19 13 COVID-19 vaccine series (2023- season) 2023 03/28/2021, 11/13/2020, 10/23/2020 Influenza Vaccine (#1) 2023 5, 01/06/2014, 12/11/2011, Additional history exists Tetanus booster 08/30/2024 08/30/2014 RSV vaccine for adults or (1 - 1-dose 75+ series) 2029 Tdap Completed 08/30/2014 Procedures Procedure Name Priority Date/Time Associated Diagnosis Comments LIPID PANEL W REFLEX MEASURED LDL Routine 02/17/2018 11:00 AM TOP COLLAR MAKER Lipid screening from Last 3 Months or Most Recently Relevant to Health Maintenance Results * LIPID PANEL W REFLEX MEASURED LDL (02/17/2018 11:00 AM TOP COLLAR MAKER) CHOLESTEROL,TOTAL 164 100 - 199 mg/dL 02/17/2018 9:23 PM TOP COLLAR MAKER [facility] TRIGLYCERIDES 100 <150 mg/dL 02/17/2018 9:23 PM TOP COLLAR MAKER [facility] HDL CHOLESTEROL 52 >40 mg/dL 8 9:23 PM TOP COLLAR MAKER [facility] NON-HDL CHOLESTEROL 112 <145 mg/dl 02/17/2018 9:23 PM TOP COLLAR MAKER [facility] CHOL/HDL RATIO 3.15 <4.50 02/17/2018 9:23 PM TOP COLLAR MAKER [facility] LDL CHOLESTEROL 92 <=130 mg/dL 02/17/2018 9:23 PM TOP COLLAR MAKER [facility] PROVIDER ORDERED STATUS RANDOM 02/17/2018 9:23 PM TOP COLLAR MAKER [facility] Blood BLOOD SPECIMEN / Unknown Venipuncture / Unknown 02/17/2018 11:00 AM TOP COLLAR MAKER 02/17/2018 11:04 AM TOP COLLAR MAKER us Luigi Steele MD CHEMISTRY Final Resu lt [facility] [address] [place] [address], [place] from Last 3 Months or Most Recently Relevant to Health Maintenance Insurance [facility] * Guarantor: RICKI FLORES Account Type Relation to Patient Date of Phone Billing Address Workers [facility] [address] [place] [address] [facility] Care Teams Planogrammer Relationship Specialty Start Date End Date Pcp, No . PCP - General 08/06/20
--- NOTE | 2024-06-06 14:02 | ED_ITS ---
HPI - General Adult General Time Seen by Provider: 14:02 Date Seen: 06/06/24 Chief complaint: Weakness Stated complaint: Soar on RT hip Time Seen by Provider: 06/06/24 13:57 Source: patient and RN notes reviewed Mode of arrival: wheelchair Limitations: other (Expressive aphasia from a prior stroke.) History of Present Illness HPI narrative: This 68-year-old male is accompanied in by his roommate for concern of a sore on his hip from a fall, increasing weakness and ongoing weight loss. Anshul has had a history of a CVA and has expressive aphasia, is nearly aphasic after this stroke. He had a fall on the 01 of June in the bathroom. He maybe fell on his right chest, his right hip area. His roommate notes that he has an abraded area on his right hip. There is no noted fevers. His roommate notes that anshul drinks well but he really does not eat much at all anymore, continues to lose weight. We last saw him in March here in the ER, had evaluation for illness and upper respiratory infection that was found to be viral. He is due for a 6 month follow-up soon with Dr. Tsai; the roommate did call her but she advised him to come to the ER with patient today. Related Data Home Medications ?Medication ?Instructions ?Recorded ?Confirmed aspirin 81 mg tablet,delayed 81 mg PO HS 12/17/22 06/06/24 release (Adult Low Dose Aspirin) bisacodyl 5 mg tablet,delayed 5 mg PO HS 12/14/23 06/06/24 release amlodipine 10 mg tablet 10 mg PO HS 06/06/24 06/06/24 pravastatin 10 mg tablet 10 mg PO HS 06/06/24 06/06/24 Allergies Allergy/AdvReac Type Severity Reaction Status Date / Time No Known Drug Allergies Allergy Verified 04/06/24 13:32 Review of Systems Status of ROS: Reports: 6 or more systems reviewed and unremarkable except as noted in History and below [facility] Medical History (Updated 06/06/24 @ 18:27 by Denilson Angela MD) Malnutrition ?E46 - Unspecified protein-calorie malnutrition (ICD-10) 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 ?R29.818 - Other symptoms and signs involving the nervous system (ICD-10) Cognitive impairment ?R41.89 - Other symptoms and signs involving cognitive functions and awareness (ICD-10) History of embolic stroke ?Z86.73 - Personal history of transient ischemic attack (TIA), and cerebral infarction without residual deficits (ICD-10) Chronic kidney disease, stage 3 ?N18.30 - Chronic kidney disease, stage 3 unspecified (ICD-10) Essential hypertension ?I10 - Essential (primary) hypertension (ICD-10) Frailty ?R54 - Age-related physical debility (ICD-10) Fall ?W19.XXXA - Unspecified fall, initial encounter (ICD-10) Cellulitis of trunk ?L03.319 - Cellulitis of trunk, unspecified (ICD-10) COPD (chronic obstructive pulmonary disease) ?J44.9 - Chronic obstructive pulmonary disease, unspecified (ICD-10) Surgical History History of cataract surgery ?Z98.49 - Cataract extraction status, unspecified eye (ICD-10) Social History (Updated 06/06/24 @ 18:21 by Denilson Angela MD) Narrative: He lives in [place] with his long-standing friend, Tato, who is now become his live-in caregiver. His brother Eamon who lives in [place] is healthcare power of consumer attorney. Anshul has a history of cigarette smoking. He does not drink alcohol. History of amphetamine abuse. Patient, his brother Eamon and his friend Tato are unable to report code status at this time. What is your current living situation?: I presently have a place to live Problems where you live: oven or stove not working Problems where you live details: currently no stove In the past 12 months, utilities in danger of being shut off: no In past 12 months, lack of transportation kept you from medical appts, meetings, work, or getting things needed for daily living: no In the past 12 mos, have been you worried that your food would run out before you had money to buy more?: never true In the past 12 mos, the food you bought just didn't last and you didn't have money to buy more?: never true Highest level of school completed/degree received: don't know Smoking Status: Former smoker Do you use any of these nicotine containing products: None Second hand tobacco smoke exposure: No How often do you have a drink containing alcohol: never How often do you have six or more drinks on one occasion: Never AUDIT-C Alcohol total score: 0 Non-prescribed substance use: denies use Caffeine: No How often does anyone, including family, friends and others, physically hurt you : never How often does anyone, including family, friends and others, insult or talk down to you: never How often does anyone, including family, friends and others, threaten you with harm: never How often does anyone, including family, friends and others, scream or curse at you: never service: No Health Related Social Needs: Inadequate housing (Z59.1) Exam Const: Vital Signs, click to edit/add: Vital Signs - 24 hr 06/06/24 13:46 06/06/24 14:09 06/06/24 15:57 Temperature 98.2 F 98.7 F Pulse Rate Pulse Rate [Pulse Oximeter] 85 71 Respiratory Rate 16 18 Blood Pressure Blood Pressure [Le ft Arm] Blood Pressure [Ri ght Upper Arm] 112/84 136/94 H Pulse Oximetry 97 98 94 Oxygen Delivery Me thod Room Air Room Air 06/06/24 16:31 06/06/24 17:00 06/06/24 17:00 Temperature 97.6 F Pulse Rate 68 Pulse Rate [Pulse Oximeter] 74 Respiratory Rate 14 16 14 Blood Pressure 131/86 Blood Pressure [Le ft Arm] 124/88 Blood Pressure [Ri ght Upper Arm] Pulse Oximetry 97 96 96 Oxygen Delivery Me thod Room Air Room Air Room Air This is a very frail thin cachectic appearing 68-year-old male. He is not verbalizing to me but is widely awake, alert. Breathing easily on room air. Sclera clear. Neck slender, do not feel any masses. Lungs are clear without any wheezing or crackles, no tachypnea or accessory muscle use. CV regular rate and rhythm, no murmur. Abdomen is slender, soft, no distension, does not seem to have any tenderness, no masses or organomegaly noted. He has no lower extremity edema. On his right outer hip area overlying the greater trochanter is a scab, about dime size. There is erythema extending superiorly above that over the buttock area with some mild warmth, do wonder if this could be early cellulitis. Patient is able to roll over onto his side, no midline tenderness of his back, no other skin changes noted but erythema does extend on the right side to the low back area. Do not feel any fluctuant area over that scab, is no t raised, no concerns for clinical evidence of abscess at this time. Documenting provider has reviewed patient's vital signs: yes Course Course ED Course: This wound over his hip certainly could have led to a cellulitis which is what I am concerned about in the soft tissues superior to this. He has also had a history of CVA, is not conversive with me right now but do know from prior visit that he can have more expressive language than what I am seeing. Will do a head CT, chest x-ray, pelvis with right hip given the recent fall. Will get baseline labs. Can consider any further imaging or advanced imaging if our workup as directed there. He is certainly hemodynamically stable and afebrile at this time. May need to discuss failure to thrive issues in placement issues with this patient pending his workup. Unclear how that will be received at this time. In his labs, will do white count, CK to ensure no rhabdo my lysis. Need to look for infectious etiology, check electrolytes, liver functions. Will do triple viral swab as well. Consultations Consultation #1: Have reviewed with Dr. Angela. We did go in and review his skin again, agrees with cellulitis. We have discussed antibiotics, he believes we can initiate Ancef to start. Still awaiting labs. Patient's roommate states his brother is coming up from [place] next week, they have been talking about anshul going to long-term as he can no longer care for himself. Dr. Angela accepts. Patient is asked if he is having pain at the site of cellulitis, attempts to try to communicate but cannot successfully enunciate, does become tearful. Time: 16:02 Vital Signs Vital signs: Initial Vital Signs Temperature 98.2 F 06/06/24 13:46 Temperature Source Temporal Artery Scan 06/06/24 13:46 Pulse Rate 85 06/06/24 13:46 Respiratory Rate 16 06/06/24 13:46 Blood Pressure 112/84 06/06/24 13:46 Blood Pressure Mean 93 06/06/24 13:46 Blood Pressure Position Sitting 06/06/24 13:46 Pulse Oximetry 97 06/06/24 13:46 Oxygen Delivery Method Room Air 06/06/24 13:46 Vital Signs Temperature 98.2 F 06/06/24 13:46 Pulse Rate 85 06/06/24 13:46 Respiratory Rate 16 06/06/24 13:46 Blood Pressure 112/84 06/06/24 13:46 Pulse Oximetry 97 06/06/24 13:46 Oxygen Delivery Method Room Air 06/06/24 13:46 Temperature 97.8 F 06/07/24 07:00 Pulse Rate 72 06/07/24 07:00 Respiratory Rate 16 06/07/24 07:00 Blood Pressure 118/72 06/07/24 07:00 Pulse Oximetry 93 06/07/24 07:00 Oxygen Delivery Method Room Air 06/07/24 07:00 Medications Administered Medications: Generic Name Dose Route Start Last Admin Trade Name Freq PRN Reason Stop Dose Admin Amlodipine Besylate 10 mg 06/06/24 21:00 06/06/24 20:17 Amlodipine 10 Mg Tablet PO 10 mg HS JURGEN Administration Aspirin 81 mg 06/06/24 21:00 06/06/24 20:16 Aspirin 81 Mg Tablet Ec PO 81 mg HS JURGEN Administration Bisacodyl 5 mg 06/06/24 21:00 06/06/24 20:[address] PO 5 mg HS JURGEN Administration Enoxaparin Sodium 40 mg 06/06/24 21:00 06/06/24 20:16 Enoxaparin 40 Mg/0.4 Ml Inj SUBCUT 40 mg HS JURGEN Administration Cefazolin Sodium 1 gm/ Sodium 100 mls @ 200 mls/hr 06/06/24 17:30 06/07/24 01:45 Chloride IVPB Infused Q8H JURGEN Infusion Pravastatin Sodium 10 mg 06/06/24 21:00 06/06/24 20:16 Pravastatin Sodium 20 Mg Tablet PO 10 mg HS JURGEN Administration Sodium Chloride 5 ml 06/06/24 21:00 06/06/24 20:17 Sodium Chloride 0.9 % (Flush) 10 Ml Syringe IVF 5 ml BID JURGEN Administration Discontinued Medications Generic Name Dose Route Start Last Admin Trade Name Freraphael PRN Reason Stop Dose Admin Sodium Chloride 500 mls @ 500 mls/hr 06/06/24 14:11 06/06/24 16:58 0.9 % Sodium Chloride 500 Ml IV 06/06/24 15:10 Infused .Q1H ONE Infusion Medical Decision Making Lab Data Lab results reviewed: Yes I reviewed the patient's lab results Labs: Lab Results 06/06/24 06/06/24 Range/Units 14:58 15:10 WBC 7.81 (4.50-11.00) K/uL RBC 4.61 (4.30-5.90) m/uL Hgb 13.9 (13.5-17.5) gm/dL Hct 43.7 (37.0-53.0) % MCV 95 (80-100) fL MCH 30 (26-34) pg MCHC 32 (32-36) gm/dL RDW Coeff of Caprice 12.7 (11.5-15.5) % Plt Count 326 (140-440) K/uL Neut % (Auto) 70.2 (42.0-72.0) % Lymph % (Auto) 15.9 L (20-44) % Kendall % (Auto) 7.7 (0.0-11.0) % Eos % (Auto) 5.6 (0.0-7.0) % Baso % (Auto) 0.5 (0.0-3.0) % Neut # (Auto) 5.48 (1.7-7.0) K/uL Lymph # (Auto) 1.20 (0.90-2.90) K/uL Kendall # (Auto) 0.60 (0.00-0.90) K/UL Eos # (Auto) 0.44 (0.00-0.50) K/uL Baso # (Auto) 0.04 (0.00-0.30) K/uL Abs Immat Gran (auto) 0.01 (0.00-0.30) K/uL Imm/Tot Granulo (auto) 0.1 % Sodium 142 (135-149) mmol/L Potassium 4.4 (3.6-5.1) mmol/L Chloride 105 (96-114) mmol/L Carbon Dioxide 28 (20-32) mmol/L Anion Gap 9 (7-15) mEq/L BUN 20 (7-30) mg/dL Creatinine 1.1 (0.5-1.5) mg/dL Estimated Creat Clear 48.80 Estimated GFR 73 ml/min Glucose 89 (60-115) mg/dL Lactate 1.0 (0.5-1.9) mmol/L Calcium 10.0 (8.4-10.6) mg/dL Magnesium 1.8 (1.5-2.6) mg/dL Total Bilirubin 0.5 (0.1-1.5) mg/dL Direct Bilirubin 0.3 (0.0-0.5) mg/dL AST 27 (12-35) U/L ALT 24 (4-50) U/L Alkaline Phosphatase 94 (40-150) U/L Total Creatine Kinase 28 L (54-186) U/L Troponin I < 0.01 (0.01-0.04) ng/mL C-Reactive Protein 1.1 H (0.5-1.0) mg/dL Total Protein 8.6 H (6.0-8.3) g/dL Albumin 4.5 (3.3-5.0) g/dL Ethyl Alcohol < 0.01 (0.01-0.03) % SARS-CoV-2 (PCR) Negative SARS-CoV-2 (Negative) Influenza Type A (PCR) Negative PCR FLU A (Negative) Influenza Type B (PCR) Negative PCR FLU B (Negative) RSV (PCR) Negative PCR RSV (Negative) Imaging Data CT scan - head: Attestation: I have reviewed the pertinent imaging results. Radiologist's impression: Patient: ANSHUL VIRGEN Facility:?[facility] Patient ID:?[id number] Site Patient ID:?[id number]. Site :?1955 Study:?CT-Head WITHOUT-06/06/2024 3:38:19 PM Ordering Physician:Kevin Urbina Final Report: INDICATION: .FALL, HX CVA TECHNIQUE: Head CT without contrast. COMPARISON: August 2022. FINDINGS: Periventricular areas of low attenuation, likely due to chronic small vessel ischemic changes. Generalized volume loss. Atherosclerosis. Old bilateral basal ganglia lacunar infarcts. No intracranial hemorrhage. No discrete mass or mass effect. There is no midline shift. The basilar cisterns are patent. No hydrocephalus. The graves-white matter interface is otherwise preserved. No acute osseous abnormality. No extracalvarial soft tissue abnormality. The mastoid air cells are clear. The paranasal sinuses are well-aerated. The visualized portions of the orbits and globes are unremarkable. IMPRESSION: No acute intracranial process per unenhanced head CT. Please note that all CT scans at this facility use dose modulation, iterative reconstruction, and/or weight-based dosing when appropriate to reduce radiation dose to as low as reasonably achievable. Dictated by Luigi Alanis MD @ 06/06/2024 3:57:17 PM (Electronic Signature) Chest x-ray: Attestation: I have reviewed the pertinent imaging results. Radiologist's impression: Patient: ANSHUL VIRGEN Facility:?[facility] Patient ID:?[id number] Site Patient ID:?[id number]. Site :?1955 Study:?XRay-Chest 2 VIEWS-06/06/2024 3:04:43 PM Ordering Physician:Kevin Urbina Final Report: INDICATION: Fall and weakness COMPARISON: 04/06/2024 chest radiograph TECHNIQUE: Two radiographic view(s) of the chest. FINDINGS: No pleural effusion. No pneumothorax. 14 millimeter densely calcified pulmonary nodule again projects over mid to upper lung zone compatible with a calcified granuloma. There are similar mild diffuse pulmonary interstitial opacities. No definite new focal pulmonary consolidation. Normal heart size. There are osseous degenerative changes. Similar partially imaged narrowing of the right subacromial space compatible with tearing of the rotator cuff. There is slight anterior vertebral body wedging throughout the visualized spine. Similar subcentimeter lucent foci in the right proximal humerus with well-defined sclerotic margins and a nonaggressive imaging appearance. IMPRESSION: Similar mild diffuse pulmonary interstitial opacities possibly representing edema, infection, or an inflammatory process. Dictated by Piyush Diana MD @ 06/06/2024 3:27:13 PM (Electronic Signature) XR right hip/pelvis: Attestation: I have reviewed the pertinent imaging results. Radiologist's impression: Patient: ANSHUL VIRGEN Facility:?[facility] [place] [facility] Patient ID:?[id number] Site Patient ID:?[id number]. Site :?1955 Study:?XRay-Hip Right 3 VIEWS-06/06/2024 3:05:46 PM Ordering Physician:Kevin Urbina Final Report: INDICATION: Fall. Hip injury. TECHNIQUE: Pelvis one view. Right hip two views. COMPARISON: 04/06/2024. FINDINGS: No acute fracture or dislocation. Degenerative changes of the bilateral hips and visualized lumbar spine. No other osseous abnormality. Vascular calcifications. Fecal loading of the rectum. IMPRESSION: No acute osseous abnormality. Dictated by Yobany Hwang MD @ 06/06/2024 3:30:03 PM (Electronic Signature) ECG Data Attestation: I personally reviewed and interpreted this ECG as follows: (Normal sinus rhythm, right bundle branch block. No evidence of any active ischemia or old infarct.) Prior ECG tracings: available for review (Compared to EKG from 2022) Discharge Plan Discharge Clinical Impression: Fall, Cellulitis, Cellulitis of trunk Patient Disposition: Admitted As Observation Condition: Stable
--- NOTE | 2024-06-06 14:09 | CRLHL7_ITS ---
For Patients: As a result of the Century Cures Act, medical imaging exams and procedure reports are released immediately into your electronic medical record. You may view this report before your referring provider. If you have questions, please contact your health care provider. INDICATION: .FALL, HX CVA TECHNIQUE: Head CT without contrast. COMPARISON: August 2022. FINDINGS: Periventricular areas of low attenuation, likely due to chronic small vessel ischemic changes. Generalized volume loss. Atherosclerosis. Old bilateral basal ganglia lacunar infarcts. No intracranial hemorrhage. No discrete mass or mass effect. There is no midline shift. The basilar cisterns are patent. No hydrocephalus. The graves-white matter interface is otherwise preserved. No acute osseous abnormality. No extracalvarial soft tissue abnormality. The mastoid air cells are clear. The paranasal sinuses are well-aerated. The visualized portions of the orbits and globes are unremarkable. IMPRESSION: No acute intracranial process per unenhanced head CT. Please note that all CT scans at this facility use dose modulation, iterative reconstruction, and/or weight-based dosing when appropriate to reduce radiation dose to as low as reasonably achievable. Dictated by Luigi Alanis MD @ 06/06/2024 3:57:17 PM (Electronically Signed)
--- NOTE | 2024-06-06 14:09 | CRLHL7_ITS ---
For Patients: As a result of the Cures Act, medical imaging exams and procedure reports are released immediately into your electronic medical record. You may view this report before your referring provider. If you have questions, please contact your health care provider. INDICATION: Fall. Hip injury. TECHNIQUE: Pelvis one view. Right hip two views. COMPARISON: 04/06/2024. FINDINGS: No acute fracture or dislocation. Degenerative changes of the bilateral hips and visualized lumbar spine. No other osseous abnormality. Vascular calcifications. Fecal loading of the rectum. IMPRESSION: No acute osseous abnormality. Dictated by Yobany Hwang MD @ 06/06/2024 3:30:03 PM (Electronically Signed)
--- NOTE | 2024-06-06 14:09 | CRLHL7_ITS ---
For Patients: As a result of the Century Cures Act, medical imaging exams and procedure reports are released immediately into your electronic medical record. You may view this report before your referring provider. If you have questions, please contact your health care provider. INDICATION: Fall and weakness COMPARISON: 04/06/2024 chest radiograph TECHNIQUE: Two radiographic view(s) of the chest. FINDINGS: No pleural effusion. No pneumothorax. 14 millimeter densely calcified pulmonary nodule again projects over mid to upper lung zone compatible with a calcified granuloma. There are similar mild diffuse pulmonary interstitial opacities. No definite new focal pulmonary consolidation. Normal heart size. There are osseous degenerative changes. Similar partially imaged narrowing of the right subacromial space compatible with tearing of the rotator cuff. There is slight anterior vertebral body wedging throughout the visualized spine. Similar subcentimeter lucent foci in the right proximal humerus with well-defined sclerotic margins and a nonaggressive imaging appearance. IMPRESSION: Similar mild diffuse pulmonary interstitial opacities possibly representing edema, infection, or an inflammatory process. Dictated by Piyush Diana MD @ 06/06/2024 3:27:13 PM (Electronically Signed)
--- OUTSIDE RECORDS SUMMARY | 2024-06-06 14:18 | XMS_ITS | Clinical Summary ---
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 Gender Identity Not on file Sexual Orientation [...] Body Mass Index 21.09 02/17/2018 10:20 AM FELT CUTTING MACHINE OPERATOR Plan of Treatment Health Maintenance Due Date [...] REFLEX MEASURED LDL Routine 02/17/2018 11:00 AM FELT CUTTING MACHINE OPERATOR Lipid screening from Last 3 Months or Most Recently Relevant to Health Maintenance Results * LIPID PANEL W REFLEX MEASURED LDL (02/17/2018 11:00 AM FELT CUTTING MACHINE OPERATOR) CHOLESTEROL,TOTAL 164 100 - 199 mg/dL 02/17/2018 9:23 PM FELT CUTTING MACHINE OPERATOR [facility] TRIGLYCERIDES 100 <150 mg/dL 02/17/2018 9:23 PM FELT CUTTING MACHINE OPERATOR [facility] HDL CHOLESTEROL 52 >40 mg/dL 8 9:23 PM FELT CUTTING MACHINE OPERATOR [facility] NON-HDL CHOLESTEROL 112 <145 mg/dl 02/17/2018 9:23 PM FELT CUTTING MACHINE OPERATOR [facility] CHOL/HDL RATIO 3.15 <4.50 02/17/2018 9:23 PM FELT CUTTING MACHINE OPERATOR [facility] LDL CHOLESTEROL 92 <=130 mg/dL 02/17/2018 9:23 PM FELT CUTTING MACHINE OPERATOR [facility] PROVIDER ORDERED STATUS RANDOM 02/17/2018 9:23 PM FELT CUTTING MACHINE OPERATOR [facility] Blood BLOOD SPECIMEN / Unknown Venipuncture / Unknown 02/17/2018 11:00 AM FELT CUTTING MACHINE OPERATOR 02/17/2018 11:04 AM FELT CUTTING MACHINE OPERATOR us Luigi Steele MD CHEMISTRY Final Resu lt [facility] [address] [place] [address], [place] from Last 3 Months or Most Recently Relevant to Health Maintenance Insurance [facility] * Guarantor: RICKI FLORES Account Type Relation to Patient Date of Phone Billing Address [facility] [address] [place] [address] [facility] Care Teams Cut Roll Machine Operator Relationship Specialty Start Date End Date Pcp, No . PCP - General 08/06/20
[2024-06-06 15:42] LABS: Basophils Absolute Auto 0.04 K/uL (0.00-0.30); Basophils Percent Auto 0.5 % (0.0-3.0); Eosinophils Absolute Auto 0.44 K/uL (0.00-0.50); Eosinophils Percent Auto 5.6 % (0.0-7.0); Hematocrit 43.7 % (37.0-53.0); Hemoglobin* 13.9 gm/dL (13.5-17.5); Immature Granulocytes Abs Auto 0.01 K/uL (0.00-0.30); Immature Granulocytes Pct Auto 0.1 %; Lymphocytes Percent Auto 15.9 % (20-44); Mean Corpuscular HGB Conc 32 gm/dL (32-36); Mean Corpuscular Hemoglobin 30 pg (26-34); Mean Corpuscular Volume 95 fL (80-100); Monocytes Percent Auto 7.7 % (0.0-11.0); Neutrophils Absolute Auto 5.48 K/uL (1.7-7.0); Neutrophils Percent Auto 70.2 % (42.0-72.0); Platelet Count* 326 K/uL (140-440); RDW Coefficient of Variation % 12.7 % (11.5-15.5); Red Blood Count 4.61 m/uL (4.30-5.90); White Blood Count* 7.81 K/uL (4.50-11.00)
[2024-06-06 15:55] LABS: Albumin* 4.5 g/dL (3.3-5.0); Chloride* 105 mmol/L (96-114)
[2024-06-06 15:56] LABS: Potassium* 4.4 mmol/L (3.6-5.1); Sodium* 142 mmol/L (135-149)
[2024-06-06 15:58] LABS: Blood Urea Nitrogen* 20 mg/dL (7-30); Creatinine* 1.1 mg/dL (0.5-1.5); Estimated Glomerular Filt Rate 73 ml/min
[2024-06-06 15:59] LABS: Alanine Aminotransferase* 24 U/L (4-50); Alkaline Phosphatase* 94 U/L (40-150); Anion Gap 9 mEq/L (7-15); Aspartate Amino Transferase* 27 U/L (12-35); Bilirubin Direct* 0.3 mg/dL (0.0-0.5); Bilirubin Total* 0.5 mg/dL (0.1-1.5); Carbon Dioxide* 28 mmol/L (20-32); Creatine Kinase* 28 U/L (54-186); Glucose* 89 mg/dL (60-115); Magnesium* 1.8 mg/dL (1.5-2.6); Total Protein* 8.6 g/dL (6.0-8.3)
[2024-06-06 16:01] LABS: C Reactive Protein* 1.1 mg/dL (0.5-1.0)
[2024-06-06] MEDS: 0.9 % SODIUM CHLORIDE 500 ML 500 ML IV (16:06)
[2024-06-06 16:08] LABS: Ethanol* < 0.01 % (0.01-0.03); Slide Review Reflex No
[2024-06-06 16:09] LABS: PCR FLU A Negative PCR FLU A (Negative); PCR FLU B Negative PCR FLU B (Negative); PCR RSV Negative PCR RSV (Negative); SARS PCR* Negative SARS-CoV-2 (Negative)
[2024-06-06 16:17] LABS: Troponin I* < 0.01 ng/mL (0.01-0.04)
[2024-06-06] MEDS: CEFAZOLIN 1 GM in 0.9 % SODIUM CHLORIDE Mini-bag 100 ML IVPB (18:00)
--- NOTE | 2024-06-06 18:01 | P.IMHP_ITS ---
Assessment and Plan Assessment and plan (1) Cellulitis of trunk: Problem comment: Recent fall and right hip with abrasion to the right hip and now extensive erythema around the right lateral hip going up the right flank. Status: Acute (2) History of embolic stroke: Problem comment: History of ischemic/embolic strokes 09/05, recommended to be on aspirin and statin for life, refuses statin until pravastatin started 03/07. Primary disability is loss of the ability to speak. Status: Acute (3) COPD (chronic obstructive pulmonary disease): Problem comment: Longstanding history of cigarette smoking. On clinical basis likely COPD. Not currently receiving any treatment for this. Not obviously having an exacerbation. Status: Acute (4) Cognitive impairment: Problem comment: This is difficult to assess. This is suspected. Difficult to test due to nonverbal status. 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 Poor nutrition with weight loss and very sedentary life likely contribute Status: Acute (6) Malnutrition: Problem comment: Weight loss of about 20 lb in 11 months. Cause for this is uncertain. Status: Acute (7) Frailty: Status: Suspected (8) Essential hypertension: Status: Acute (9) Chronic kidney disease, stage 3: Status: Acute Plan 68-year-old male admitted with acute on chronic decline likely due to right hip cellulitis. This is likely due to an abrasion on his hip when he fell a few days ago. Cellulitis extends over his entire right hip and up his right flank. No obvious abscess. Initial treatment with Ancef. Patient is also acutely on chronically disabled and profoundly weak. While ongoing assessment of that. Likely related to his very poor nutrition and ongoing significant weight loss. He is admitted for ongoing evaluation if he these problems. Total time spent today is 95 minutes in coordination of care, reviewing outside records, speaking with his friend Tato and brother Eamon and other providers about ongoing plan of care. Hospitalist- H&P: HPI History of Present Illness Date Seen: 06/06/24 Chief complaint: Soar on RT hip Narrative: Ricki Flores is a 68-year-old male with previous stroke and COPD is accompanied in by his roommate and caregiver, Tato, for concern of a sore on his hip from a fall, increasing weakness and ongoing weight loss. Ricki has had a history of a CVA and has expressive aphasia, is nearly aphasic after this stroke in August of 2022. He had a fall on the 01 of June in the bathroom. He maybe fell on his right chest, his right hip area. His roommate notes that he has an abraded area on his right hip. There is no noted fevers. Mostly history is obtained from the medical record and from Tato as the patient is unable to effectively verbally communicate and does not consistently nod yes and no to questions. Tato notes that Gama had ongoing decline with weight loss and progressive weakness and loss of mobility over the past few months. His weight on 07/07/2023 was 63.2 kg. Weight today is 54.4 kg. Tato notes that he is able to drink Ensure every day but otherwise eats very little. Ricki does feed himself but seems to have a poor appetite. Tato denies any problem with access to food. He notes that Ricki can be sometimes quite picky about what he eats. Ricki did have a swallowing evaluation after his stroke which did show some aspiration of thin liquids but he has apparently done okay with drinking fluids since that time. Ricki previously was able to stand and walk for limited distances in the house. In the past couple months he has lost the ability to stand and walk. He is incontinent of bowel and bladder. He does wear a diaper which he will change by himself. Uncertain whether he is able to control bowel and bladder function at all. Ricki has a brother Eamon who lives in [place]. Brother Eamon is healthcare power of title attorney. I spoke with him today and he corroborates much of the information I received from Tato. Tato and Eamon have been considering a moved to assisted living because of yulisa progressive decline Review of Systems Narrative: Unable to get significant information from Ricki. Tato notes no other problems except as noted above. In reviewing his chart I see he was here in March 2024 with a respiratory illness suspicious for a viral infection. At that time he had a chest x-ray showing some mild interstitial opacities. Those are present still on today's chest x-ray. There is no report of ongoing respiratory symptoms. 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 ?R29.818 - Other symptoms and signs involving the nervous system (ICD-10) Cognitive impairment ?R41.89 - Other symptoms and signs involving cognitive functions and awareness (ICD-10) History of embolic stroke ?Z86.73 - Personal history of transient ischemic attack (TIA), and cerebral infarction without residual deficits (ICD-10) Chronic kidney disease, stage 3 ?N18.30 - Chronic kidney disease, stage 3 unspecified (ICD-10) Essential hypertension ?I10 - Essential (primary) hypertension (ICD-10) Frailty ?R54 - Age-related physical debility (ICD-10) Fall ?W19.XXXA - Unspecified fall, initial encounter (ICD-10) Cellulitis of trunk ?L03.319 - Cellulitis of trunk, unspecified (ICD-10) COPD (chronic obstructive pulmonary disease) ?J44.9 - Chronic obstructive pulmonary disease, unspecified (ICD-10) Surgical History History of cataract surgery ?Z98.49 - Cataract extraction status, unspecified eye (ICD-10) Social History (Updated 06/06/24 @ 18:21 by Denilson Angela MD) Narrative: He lives in [place] with his long-standing friend, Tato, who is now become his live-in caregiver. His brother Eamon who lives in [place] is healthcare power of title attorney. Ricki has a history of cigarette smoking. He does not drink alcohol. History of amphetamine abuse. Patient, his brother Eamon and his friend Tato are unable to report code status at this time. What is your current living situation?: I presently have a place to live Problems where you live: oven or stove not working Problems where you live details: currently no stove In the past 12 months, utilities in danger of being shut off: no In past 12 months, lack of transportation kept you from medical appts, meetings, work, or getting things needed for daily living: no In the past 12 mos, have been you worried that your food would run out before you had money to buy more?: never true In the past 12 mos, the food you bought just didn't last and you didn't have money to buy more?: never true Smoking Status: Former smoker Do you use any of these nicotine containing products: None Second hand tobacco smoke exposure: No How often do you have a drink containing alcohol: never How often do you have six or more drinks on one occasion: Never AUDIT-C Alcohol total score: 0 Non-prescribed substance use: denies use How often does anyone, including family, friends and others, physically hurt you : never How often does anyone, including family, friends and others, insult or talk down to you: never How often does anyone, including family, friends and others, threaten you with harm: never How often does anyone, including family, friends and others, scream or curse at you: never service: No Health Related Social Needs: Inadequate housing (Z59.1) Meds Home Medications and Allergies Home Medications ?Medication ?Instructions ?Recorded ?Confirmed ?Type aspirin 81 mg tablet,delayed 81 mg PO HS 12/17/22 06/06/24 History release (Adult Low Dose Aspirin) bisacodyl 5 mg tablet,delayed 5 mg PO HS 12/14/23 06/06/24 History release amlodipine 10 mg tablet 10 mg PO HS 06/06/24 06/06/24 History pravastatin 10 mg tablet 10 mg PO HS 06/06/24 06/06/24 History Allergies Allergy/AdvReac Type Severity Reaction Status Date / Time No Known Drug Allergies Allergy Verified 04/06/24 13:32 Exam Narrative: Exam Narrative: He is alert and appears in no distress. He mostly follows simple commands occasionally with some difficulty. He attempts verbal responses with great difficulty and quite difficult to understand. Tato is able to tell some information when kg attempts to talk. Kg does not reliably respond to yes or no questions with a nod of his head. There is no obvious head trauma. Eyes are normal. Oropharynx edentulous except for 2 lower incisors. Dry mucous membranes. Neck is supple without mass or adenopathy. Respirations with marked diminished breath sounds throughout all lung arcos. Cardiovascular: Very diminished heart sounds with a regular rhythm. Abdomen: Bowel sounds active. Abdomen is soft without tenderness. External genitalia normal. Lower Extremities are somewhat cool to touch, he has intact pulses. Both hips are quite weak: He is unable to lift either leg off the bed. He has 4/5 strength bilaterally in knee extension and knee flexion and ankle dorsiflexion and plantar flexion. No significant edema. Const: Vital Signs, click to edit/add: Vital Signs - 24 hr 06/06/24 13:46 06/06/24 14:09 06/06/24 15:57 Temperature 98.2 F 98.7 F Pulse Rate Pulse Rate [Pulse Oximeter] 85 71 Respiratory Rate 16 18 Blood Pressure Blood Pressure [Ri ght Upper Arm] 112/84 136/94 H Pulse Oximetry 97 98 94 Oxygen Delivery Me thod Room Air Room Air 06/06/24 16:31 Temperature Pulse Rate 68 Pulse Rate [Pulse Oximeter] Respiratory Rate 14 Blood Pressure 131/86 Blood Pressure [Ri ght Upper Arm] Pulse Oximetry 97 Oxygen Delivery Me thod Room Air Documenting provider has reviewed patient's vital signs: yes Hospitalist - H&P: Result Labs Labs: Short CBC 06/06/24 Range/Units 15:10 WBC 7.81 (4.50-11.00) K/uL Hgb 13.9 (13.5-17.5) gm/dL Hct 43.7 (37.0-53.0) % Plt Count 326 (140-440) K/uL BMP 06/06/24 15:10 Sodium 142 Potassium 4.4 Chloride 105 Carbon Dioxide 28 BUN 20 Creatinine 1.1 Glucose 89 Calcium 10.0 Cardiac Enzymes 06/06/24 Range/Units 15:10 Total Creatine Kinase 28 L (54-186) U/L Troponin I < 0.01 (0.01-0.04) ng/mL Liver Function 06/06/24 Range/Units 15:10 Total Bilirubin 0.5 (0.1-1.5) mg/dL Direct Bilirubin 0.3 (0.0-0.5) mg/dL AST 27 (12-35) U/L ALT 24 (4-50) U/L Alkaline Phosphatase 94 (40-150) U/L Albumin 4.5 (3.3-5.0) g/dL Imaging CT scan - head: Radiologist's impression: INDICATION: .FALL, HX CVA TECHNIQUE: Head CT without contrast. COMPARISON: August 2022. FINDINGS: Periventricular areas of low attenuation, likely due to chronic small vessel ischemic changes. Generalized volume loss. Atherosclerosis. Old bilateral basal ganglia lacunar infarcts. No intracranial hemorrhage. No discrete mass or mass effect. There is no midline shift. The basilar cisterns are patent. No hydrocephalus. The graves-white matter interface is otherwise preserved. No acute osseous abnormality. No extracalvarial soft tissue abnormality. The mastoid air cells are clear. The paranasal sinuses are well-aerated. The visualized portions of the orbits and globes are unremarkable. IMPRESSION: No acute intracranial process per unenhanced head CT. Chest x-ray: Radiologist's impression: INDICATION: Fall and weakness COMPARISON: 04/06/2024 chest radiograph TECHNIQUE: Two radiographic view(s) of the chest. FINDINGS: No pleural effusion. No pneumothorax. 14 millimeter densely calcified pulmonary nodule again projects over mid to upper lung zone compatible with a calcified granuloma. There are similar mild diffuse pulmonary interstitial opacities. No definite new focal pulmonary consolidation. Normal heart size. There are osseous degenerative changes. Similar partially imaged narrowing of the right subacromial space compatible with tearing of the rotator cuff. There is slight anterior vertebral body wedging throughout the visualized spine. Similar subcentimeter lucent foci in the right proximal humerus with well-defined sclerotic margins and a nonaggressive imaging appearance. IMPRESSION: Similar mild diffuse pulmonary interstitial opacities possibly representing edema, infection, or an inflammatory process. Hip x-ray: Radiologist's impression: INDICATION: Fall. Hip injury. TECHNIQUE: Pelvis one view. Right hip two views. COMPARISON: 04/06/2024. FINDINGS: No acute fracture or dislocation. Degenerative changes of the bilateral hips and visualized lumbar spine. No other osseous abnormality. Vascular calcifications. Fecal loading of the rectum. IMPRESSION: No acute osseous abnormality.
[2024-06-06] MEDS: bisacodyL 5 MG TABLET DR PO (20:16)
[2024-06-06] MEDS: ENOXAPARIN 40 MG/0.4 ML INJ SUBCUT (20:16)
[2024-06-06] MEDS: PRAVASTATIN SODIUM 20 MG TABLET 10 MG PO (20:16)
[2024-06-06] MEDS: ASPIRIN 81 MG TABLET EC PO (20:16)
[2024-06-06] MEDS: AMLODIPINE 10 MG TABLET PO (20:17)
[2024-06-06] MEDS: SODIUM CHLORIDE 0.9 % (FLUSH) 10 ML SYRINGE 5 ML IVF (20:17)
[2024-06-07] MEDS: CEFAZOLIN 1 GM in 0.9 % SODIUM CHLORIDE Mini-bag 100 ML IVPB ×3 (01:06→18:25)
[2024-06-07 01:40] LABS: Appearance Urine Slightly Cloudy (Clear); Bilirubin Urine Negative (Negative); Blood Urine Trace-intact (Negative); Color Urine Yellow (Yellow); Glucose Urine Negative (Negative); Ketones Urine Negative (Negative); Leukocyte Esterase Urine 3+ (Negative); Nitrite Urine Negative (Negative); Protein Urine Negative (Negative); Specific Gravity Urine 1.015 (1.000-1.030); Urobilinogen Urine 0.2 (0.2-1.0)
[2024-06-07 01:48] LABS: Amphetamine Screen Urine Negative (Negative); Barbiturate Screen Urine Negative (Negative); Benzodiazepines Screen Urine Negative (Negative); Cannabinoid Screen Urine Negative (Negative); Cocaine Screen Urine Negative (Negative); Methadone Screen Urine Negative (Negative); Methamphetamines Screen Urine Negative (Negative); Opiate Screen Urine Negative (Negative); Oxycodone Screen Urine Negative (Negative); Phencyclidine Screen Urine Negative (Negative); Tricyclic Antidepressant Urine Negative (Negative)
[2024-06-07 01:53] LABS: Bacteria Urine Many; RBC Urine 0-2 (0-2); Squamous Epithelial Cell Urine Few (None-Few)
[2024-06-07 01:54] LABS: Amorphous Sediment Urine Moderate
[2024-06-07 03:00] VITALS: RESP 16
--- NOTE | 2024-06-07 06:08 | PC.NURSE ---
19-07: pleasant and cooperative. pt has expressive aphasia, needs amble time to communicate verbally, inspector automatic typewriter was able to communicate with pt to address needs. pt asked appropriate questions verbally, when explaining external catheter he asked if it would hurt & how long it would stay on for. inspector automatic typewriter explained and demonstrated activities. pt shrugs, laughs, and smiles - pt was able to chat about tattoos as well. VSS. cellulites remained within defined parameter, slightly warm to touch. Swallowed pills whole in upright position. UA showing bacteria, Urine Vadim pending, pt currently on abx.
[2024-06-07 07:00] VITALS: BP 118/72; PULSE 72; RESP 16; TEMP 36.6; O2SAT 93
[2024-06-07] MEDS: 0.9 % SODIUM CHLORIDE 250 ml IV (09:30)
[2024-06-07] MEDS: SODIUM CHLORIDE 0.9 % (FLUSH) 10 ML SYRINGE 5 ML IVF ×2 (10:03→21:36)
[2024-06-07 10:45] VITALS: BMI 17.6
[2024-06-07 11:00] VITALS: BP 111/86; PULSE 78; RESP 18; TEMP 36.9; O2SAT 97
--- NOTE | 2024-06-07 12:28 | PM.IMPN1 ---
Assessment and Plan Assessment and plan (1) Cellulitis of trunk: Problem comment: - Recent fall and right hip with abrasion to the right hip and now extensive erythema around the right lateral hip going up the right flank. - cefazolin IV antibiotic Status: Acute (2) History of embolic stroke: Problem comment: History of ischemic/embolic strokes 09/05, recommended to be on aspirin and statin for life, refuses statin until pravastatin started 03/07. Primary disability is loss of the ability to speak. Status: Acute (3) COPD (chronic obstructive pulmonary disease): Problem comment: Longstanding history of cigarette smoking. On clinical basis likely COPD. Not currently receiving any treatment for this. Not obviously having an exacerbation. Status: Acute (4) Cognitive impairment: Problem comment: - This is difficult to assess. This is suspected. Difficult to test due to nonverbal status. His roommate, Tato, expresses concern of this as well. - as best as I can ascertain he does not have a power of state attorney for health at this time. I have asked our social service manager to further assess and assist with this if at all possible. Discussed with his roommate, Tato, as well as his son, Eamon, who does have power of state attorney for finances. 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 Poor nutrition with weight loss and very sedentary life likely contribute. Status: Acute (6) Malnutrition: Problem comment: Weight loss of about 20 lb in 11 months. Cause for this is uncertain. Status: Acute (7) Frailty: Status: Suspected (8) Essential hypertension: Status: Acute (9) Chronic kidney disease, stage 3: Status: Acute (10) Major depression: Problem comment: - I suspect this is a component of his evolving emotional lability, weight loss, disinterest - will initiate mirtazapine 15 mg at bedtime for mood stability as well as appetite stimulation Status: Acute (11) Resuscitation status unknown: Problem comment: - we have no records of her resuscitation status. Patient's son, Eamon, has power of state attorney for finances. Roommate, Tato, unaware of her resuscitation status order. Both Eamon and Tato indicate that patient has previously indicated to them that he does not want to be kept alive if he will continue to live in this manner, and certainly if he requires extraordinary measures such as tubes and ventilation. I have asked our web content & social media manager staff to assist Eamon in possibly obtaining power of state attorney for health if patient is willing. Status: Acute Plan 1. Reviewed impression, plans, recommendations with patient, his son, Eamon, via telephone, , and his friend Tato, also his roommate and primary caregiver. 2. Answered their questions to their satisfaction. 3. They are agreeable with above stated plans and recommendations. Total Time Spent Total Time Spent: 60 minutes Subjective Date Seen: 06/07/24 Interval history: Admission history of present illness: ?68-year-old male with previous stroke and COPD is accompanied in by his roommate and caregiver, Tato, for concern of a sore on his hip from a fall, increasing weakness and ongoing weight loss. Ricki has had a history of a CVA and has expressive aphasia, is nearly aphasic after this stroke in August of 2022. He had a fall on the 01 of June in the bathroom. He maybe fell on his right chest, his right hip area. His roommate notes that he has an abraded area on his right hip. There is no noted fevers. Mostly history is obtained from the medical record and from Tato as the patient is unable to effectively verbally communicate and does not consistently nod yes and no to questions. Atto notes that Gama had ongoing decline with weight loss and progressive weakness and loss of mobility over the past few months. His weight on 07/07/2023 was 63.2 kg. Weight today is 54.4 kg. Tato notes that he is able to drink Ensure every day but otherwise eats very little. Ricki does feed himself but seems to have a poor appetite. Tato denies any problem with access to food. He notes that Ricki can be sometimes quite picky about what he eats. Ricki did have a swallowing evaluation after his stroke which did show some aspiration of thin liquids but he has apparently done okay with drinking fluids since that time. Ricki previously was able to stand and walk for limited distances in the house. In the past couple months he has lost the ability to stand and walk. He is incontinent of bowel and bladder. He does wear a diaper which he will change by himself. Uncertain whether he is able to control bowel and bladder function at all. ?Ricki has a brother Eamon who lives in [place]. Brother Eamon is healthcare power of state attorney. I spoke with him today and he corroborates much of the information I received from Tato. Tato and Eamon have been considering a moved to assisted living because of márquez progressive decline.? Hospital day 2 (06/07/2024): I visit patient in his hospital room. Difficult to engage in meaningful conversation with him. Very slow to respond to questions. Whispers when he speaks. For the most part only answers yes or no questions. Does not engage in spontaneous dialogue or discussion. Rarely speaks a short sentence. Denies pain or discomfort. When I 1st see him in the morning he tells me he is not hungry. I see him again later in the morning and he is having bites of food. With assist as able to transfer from bed to recliner chair at bedside. Denies dyspnea at rest, paroxysmal nocturnal dyspnea, orthopnea. Denies dyspnea with exertion. Denies chest heaviness, pressure, tightness, or pain. Denies syncope, near syncope, orthostasis, dizziness, lightheadedness. Denies nausea or vomiting. Denies palpitations. Denies abdominal pain. Denies dysuria, urgency, frequency, hematuria. Denies blood loss of any sort. Denies diarrhea or constipation. Acknowledges long-standing weakness. Acknowledges a fall on 06/01/2024. Exam Narrative: Exam Narrative: I examine him a few times over the course of the morning in his hospital room. Initially he is laying down in his bed. Later I am able to observe as he transfers from bed to bedside recliner chair with assist of 1, walker, gait belt. Difficult to ascertain his level of orientation. Speaks in a whisper voice. Takes long time to respond to questions if he even responds. May respond to yes or no questions. For the most part does not answer to open ended questions. Does not engage in spontaneous dialogue or discussion. At times will break out into spontaneous crying. His roommate, Tato, indicates that this is normal for Ricki. Ricki does not answer me directly as to whether not he feels depressed, anxious, or afraid. For the most part seems to understand questions but has difficulty answering. Similarly, for the most part able to carry out a single step instructions. Appears thin, frail, cachectic. Diffuse muscle atrophy of hands and upper extremities as well as lower extremities. Very weak lower extremities. Lungs remain clear to auscultation. Heart tones with regular rhythm, distant tones. Abdomen is thin with active bowel sounds, soft, nontender. Skin on right hip and flank remains erythematous but less intense and less warm. Area of cellulitis continues to be confined within the area that was marked on his skin. Const: Vital Signs, click to edit/add: Vital Signs - 24 hr 06/06/24 13:46 06/06/24 14:09 06/06/24 15:57 Temperature 98.2 F 98.7 F Pulse Rate Pulse Rate [Pulse Oximeter] 85 71 Respiratory Rate 16 18 Blood Pressure Blood Pressure [Le ft Arm] Blood Pressure [Ri ght Upper Arm] 112/84 136/94 H Pulse Oximetry 97 98 94 Oxygen Delivery Mt thod Room Air Room Air 06/06/24 16:31 06/06/24 17:00 06/06/24 17:00 Temperature 97.6 F Pulse Rate 68 Pulse Rate [Pulse Oximeter] 74 Respiratory Rate 14 16 14 Blood Pressure 131/86 Blood Pressure [Le ft Arm] 124/88 Blood Pressure [Ri ght Upper Arm] Pulse Oximetry 97 96 96 Oxygen Delivery Mt thod Room Air Room Air Room Air 06/06/24 20:00 06/06/24 22:36 06/06/24 23:00 Temperature 98 F 98 F Pulse Rate Pulse Rate [Pulse Oximeter] 70 79 Respiratory Rate 16 16 16 Blood Pressure Blood Pressure [Le ft Arm] 122/82 122/77 Blood Pressure [Ri ght Upper Arm] Pulse Oximetry 96 95 Oxygen Delivery Mt thod Room Air Room Air 06/07/24 03:00 06/07/24 07:00 06/07/24 07:00 Temperature 97.8 F Pulse Rate Pulse Rate [Pulse Oximeter] 72 72 Respiratory Rate 16 16 16 Blood Pressure Blood Pressure [Le ft Arm] 118/72 Blood Pressure [Ri ght Upper Arm] Pulse Oximetry 93 Oxygen Delivery Mt thod Room Air Labs Labs: Laboratory Results - last 24 hr 06/06/24 06/06/24 06/07/24 14:58 15:10 01:32 WBC 7.81 RBC 4.61 Hgb 13.9 Hct 43.7 MCV 95 MCH 30 MCHC 32 RDW Coeff of Caprice 12.7 Plt Count 326 Neut % (Auto) 70.2 Lymph % (Auto) 15.9 L Davie % (Auto) 7.7 Eos % (Auto) 5.6 Baso % (Auto) 0.5 Neut # (Auto) 5.48 Lymph # (Auto) 1.20 Davie # (Auto) 0.60 Eos # (Auto) 0.44 Baso # (Auto) 0.04 Abs Immat Gran (auto) 0.01 Imm/Tot Granulo (auto) 0.1 Sodium 142 Potassium 4.4 Chloride 105 Carbon Dioxide 28 Anion Gap 9 BUN 20 Creatinine 1.1 Estimated Creat Clear 48.80 Estimated GFR 73 Glucose 89 Lactate 1.0 Calcium 10.0 Magnesium 1.8 Total Bilirubin 0.5 Direct Bilirubin 0.3 AST 27 ALT 24 Alkaline Phosphatase 94 Total Creatine Kinase 28 L Troponin I < 0.01 C-Reactive Protein 1.1 H Total Protein 8.6 H Albumin 4.5 Urine Color Yellow Urine Appearance Slightly Cloudy A Urine pH 7.0 Ur Specific Rock 1.015 Urine Protein Negative Urine Glucose (UA) Negative Urine Ketones Negative Urine Blood Trace-intact A Urine Nitrite Negative Urine Bilirubin Negative Urine Urobilinogen 0.2 Ur Leukocyte Esterase 3+ A Urine RBC 0-2 Urine WBC 10-25 A Ur Squamous Epith Cells Few Amorphous Sediment Moderate A Urine Bacteria Many A Urine Opiates Screen Negative Ur Oxycodone Screen Negative Urine Methadone Screen Negative Ur Barbiturates Screen Negative U Tricyclic Antidepress Negative Ur Phencyclidine Scrn Negative Ur Amphetamines Screen Negative U Methamphetamines Scrn Negative U Benzodiazepines Scrn Negative Urine Cocaine Screen Negative U Marijuana (THC) Screen Negative Ur Drug Screen Comment See Note Ethyl Alcohol < 0.01 SARS-CoV-2 (PCR) Negative SARS-CoV-2 Influenza Type A (PCR) Negative PCR FLU A Influenza Type B (PCR) Negative PCR FLU B RSV (PCR) Negative PCR RSV
--- NOTE | 2024-06-07 14:54 | PC.SOCIAL ---
Discharge planning: general office worker met with the pt and his friend/roommate/engineering professor, Tato Marcelino, this morning to discuss discharge planning. Pt does not talk very much and mostly nods here and there with his head. general office worker explained that the pt is being recommended for short-term rehab at discharge from the hospital and then long-term care or assisted living after that. Pt's friend/engineering professor Tato stated that it is getting too hard for him to continue to care for the pt at his home. Pt was open to going to a short-term rehab facility after his hospital stay, but he and his friend, Tato, did share that the pt will not go back to [facility] in [place] because he had a horrible experience there the last time that he went. Pt has a Medicare Advantage plan with [facility], which means certain SNF's contract with the pt's insurance. [facility] is one of the [facility] that contracts with pt's insurance and the pt would like this worker to check with [facility] on availability for male short-term rehab beds. general office worker left a message with Ruben at [facility]. general office worker also spoke to pt's brother, Eamon Flores, via phone who lives in [place] and is the pt's financial POA. Eamon states that he is looking for an Assisted Living facility in [place] for his brother to move into and Eamon shared that his brother has money to private pay for a facility. general office worker asked Eamon about POA for healthcare for his brother and Eamon stated that he needed to look through his paperwork because he thought he was his brother's POA for healthcare and finances. Social work to follow-up as needed.
[2024-06-07 15:00] VITALS: BP 118/88; PULSE 81; RESP 18; TEMP 36.9; O2SAT 93
--- NOTE | 2024-06-07 15:39 | PC.NURSE ---
End of shift: VS WNL. Denies N/V/pain. Expressive aphasia, pt alert and oriented to name and . Tolerating regular diet. IV is SL in R AC. External cath in place. Cellulitis outlined on rip hip is receding the border. Pt noted to be crying frequently when talking about his health/living condition.
[2024-06-07 19:00] VITALS: BP 109/82; PULSE 71; RESP 16; TEMP 36.9; O2SAT 95
--- NOTE | 2024-06-07 19:40 | PC.NURSE ---
Nursing Care Hours: 8584-0775 Centrifuge Operator training daytime nurse, see end of shift note. From [id number], pt VSS, no c/o pain. Walked to BR x1. External cath removed to promote ambulation and activity. Centrifuge Operator asking frequently if pt has to use BR or needs to be changed. Pt denies and says he will let nurse know. End of shift, casualty underwriter checked brief and pt was incontinent. Pt became emotional and crying very briefly. Centrifuge Operator used therapeutic communication and pt calm down. Ax1 to stand edge of bed for clean up, pt steady and was able to move self from lying to sitting mostly independently and slowly. ABX infused per order. Pt ate 100% of meatloaf and ice cream for dinner independently. No SS of dysphagia or aspiration.
[2024-06-07] MEDS: ASPIRIN 81 MG TABLET EC PO (21:34)
[2024-06-07] MEDS: AMLODIPINE 10 MG TABLET PO (21:34)
[2024-06-07] MEDS: bisacodyL 5 MG TABLET DR PO (21:34)
[2024-06-07] MEDS: ENOXAPARIN 40 MG/0.4 ML INJ SUBCUT (21:34)
[2024-06-07] MEDS: MIRTAZAPINE 15 MG TABLET PO (21:34)
[2024-06-07] MEDS: PRAVASTATIN SODIUM 20 MG TABLET 10 MG PO (21:35)
[2024-06-07 23:00] VITALS: PULSE 71; RESP 16
[2024-06-08] VITALS (7 sets, daily range): BP systolic 104–126; BP diastolic 76–88; PULSE 69–89; RESP 14–22; TEMP 36.6–37; O2SAT 93–97
[2024-06-08] MEDS: CEFAZOLIN 1 GM in 0.9 % SODIUM CHLORIDE Mini-bag 100 ML IVPB ×3 (01:48→19:50)
--- NOTE | 2024-06-08 05:54 | PC.NURSE ---
End of shift report [id number]: Pleasant and cooperative with cares. Alert, able to answer simple questions, patient has expressive aphasia and has delayed response to questions. Denies any pain or SOB. Redness to right hip is now light pink in color and receding from outline. Incontinent of bladder throughout the shift, brief changed and patient repositioned. Transfers and ambulates with A x 1 with gait belt and walker, has a significant turn laterally of right foot when walking.
--- NOTE | 2024-06-08 09:03 | PC.SOCIAL ---
Addendum entered by JOLIE Adames 06/08/24 16:37: Discharge planning: dry kiln worker left multiple messages with Carrie throughout the day asking for an update on the referral for this pt. dry kiln worker asked them to follow-up with this worker's supervisor tan room in the morning due to this worker not working tomorrow(). Social work to follow-up as needed. Original Note: Discharge planning: dry kiln worker secure emailed pt's referral for short-term rehab to Carrie Romo and Sheela Charles at [facility] in [place] this morning for review. Social work to follow-up as needed.
[2024-06-08] MEDS: SODIUM CHLORIDE 0.9 % (FLUSH) 10 ML SYRINGE 5 ML IVF ×2 (11:01→19:50)
[2024-06-08] MEDS: 0.9 % SODIUM CHLORIDE 250 ml IV (11:01)
[2024-06-08] MEDS: ACETAMINOPHEN 325 MG TABLET 650 MG PO (11:02)
--- NOTE | 2024-06-08 13:03 | PM.IMPN1 ---
Assessment and Plan Assessment and plan (1) Cellulitis of trunk: Problem comment: - Recent fall and right hip with abrasion to the right hip and now extensive erythema around the right lateral hip going up the right flank. - cefazolin IV antibiotic Status: Acute (2) History of embolic stroke: Problem comment: History of ischemic/embolic strokes 09/05, recommended to be on aspirin and statin for life, refuses statin until pravastatin started 03/07. Primary disability is loss of the ability to speak. Status: Acute (3) COPD (chronic obstructive pulmonary disease): Problem comment: Longstanding history of cigarette smoking. On clinical basis likely COPD. Not currently receiving any treatment for this. Not obviously having an exacerbation. Status: Acute (4) Cognitive impairment: Problem comment: - This is difficult to assess. This is suspected. Difficult to test due to nonverbal status. His roommate, Tato, expresses concern of this as well. - as best as I can ascertain he does not have a power of assistant district attorney for health at this time. I have asked our medical social worker to further assess and assist with this if at all possible. Discussed with his roommate, Tato, as well as his son, Eamon, who does have power of assistant district attorney for finances. 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 Poor nutrition with weight loss and very sedentary life likely contribute. Status: Acute (6) Malnutrition: Problem comment: Weight loss of about 20 lb in 11 months. Cause for this is uncertain. Status: Acute (7) Frailty: Status: Suspected (8) Essential hypertension: Status: Acute (9) Chronic kidney disease, stage 3: Status: Acute (10) Major depression: Problem comment: - I suspect this is a component of his evolving emotional lability, weight loss, disinterest - will initiate mirtazapine 15 mg at bedtime for mood stability as well as appetite stimulation Status: Acute (11) Resuscitation status unknown: Problem comment: - we have no records of her resuscitation status. Patient's son, Eamon, has power of assistant district attorney for finances. Roommate, Tato, unaware of her resuscitation status order. Both Eamon and Tato indicate that patient has previously indicated to them that he does not want to be kept alive if he will continue to live in this manner, and certainly if he requires extraordinary measures such as tubes and ventilation. I have asked our social secretary staff to assist Eamon in possibly obtaining power of assistant district attorney for health if patient is willing. -his brother, Eamon, is in contact with hospital medical social worker and will be submitting forms for her to review, including POA for finances and health Status: Acute Plan 1. Reviewed impression with patient and brother, Eamon 2. Reviewed impression with patient's roommate and caregiver, Tato 4. Answered their questions 5. They are agreeable Total Time Spent Total Time Spent: 45 minutes Subjective Date Seen: 06/08/24 Interval history: Admission history of present illness: ?68-year-old male with previous stroke and COPD is accompanied in by his roommate and caregiver, Tato, for concern of a sore on his hip from a fall, increasing weakness and ongoing weight loss. Ricki has had a history of a CVA and has expressive aphasia, is nearly aphasic after this stroke in August of 2022. He had a fall on the 01 of June in the bathroom. He maybe fell on his right chest, his right hip area. His roommate notes that he has an abraded area on his right hip. There is no noted fevers. Mostly history is obtained from the medical record and from Tato as the patient is unable to effectively verbally communicate and does not consistently nod yes and no to questions. Tato notes that Gama had ongoing decline with weight loss and progressive weakness and loss of mobility over the past few months. His weight on 07/07/2023 was 63.2 kg. Weight today is 54.4 kg. Tato notes that he is able to drink Ensure every day but otherwise eats very little. Ricki does feed himself but seems to have a poor appetite. Tato denies any problem with access to food. He notes that Ricki can be sometimes quite picky about what he eats. Ricki did have a swallowing evaluation after his stroke which did show some aspiration of thin liquids but he has apparently done okay with drinking fluids since that time. Ricki previously was able to stand and walk for limited distances in the house. In the past couple months he has lost the ability to stand and walk. He is incontinent of bowel and bladder. He does wear a diaper which he will change by himself. Uncertain whether he is able to control bowel and bladder function at all. ?Ricki has a brother Eamon who lives in [place]. Brother Eamon is healthcare power of assistant district attorney. I spoke with him today and he corroborates much of the information I received from Tato. Tato and Eamon have been considering a moved to assisted living because of márquez progressive decline.? Hospital day 2 (06/07/2024): I visit patient in his hospital room. Difficult to engage in meaningful conversation with him. Very slow to respond to questions. Whispers when he speaks. For the most part only answers yes or no questions. Does not engage in spontaneous dialogue or discussion. Rarely speaks a short sentence. Denies pain or discomfort. When I 1st see him in the morning he tells me he is not hungry. I see him again later in the morning and he is having bites of food. With assist as able to transfer from bed to recliner chair at bedside. Denies dyspnea at rest, paroxysmal nocturnal dyspnea, orthopnea. Denies dyspnea with exertion. Denies chest heaviness, pressure, tightness, or pain. Denies syncope, near syncope, orthostasis, dizziness, lightheadedness. Denies nausea or vomiting. Denies palpitations. Denies abdominal pain. Denies dysuria, urgency, frequency, hematuria. Denies blood loss of any sort. Denies diarrhea or constipation. Acknowledges long-standing weakness. Acknowledges a fall on 06/01/2024. Hospital day 3 (06/08/2024): Patient more awake and interactive today than yesterday. He ate well this morning. Was able to ambulate briefly with standby assist of 1 and walker and gait belt. Interaction is similar to yesterday. When he speaks he speaks in whispering voice that you may or may not understand. Breaks on to spontaneous crying at times particularly when he gets a sense that he feels loved. Denies concerns or problems today. Exam Narrative: Exam Narrative: I examine him in his hospital room. Awake, alert, oriented to self and possibly place. Seemingly not oriented to time or situation. Seems to understand that he is too weak to go home. Accepts recommendation for transitional care services before making a decision about assisted living verses [facility] facility care hereafter. Lungs are clear to auscultation. Heart tones are distant but regular. Abdomen is thin, soft, nontender. Extremities without edema. Erythema of the cellulitis is much less intense, less warm, and shrinking in size. Const: Vital Signs, click to edit/add: Vital Signs - 24 hr 06/07/24 15:00 06/07/24 15:00 06/07/24 19:00 Temperature 98.4 F 98.5 F Pulse Rate [Pulse Oximeter] 81 81 71 Respiratory Rate 18 18 16 Blood Pressure [Le ft Arm] 109/82 Blood Pressure [Ri ght Arm] 118/88 Pulse Oximetry 93 95 Oxygen Delivery Me thod Room Air Room Air 06/07/24 23:00 06/07/24 23:00 06/08/24 03:00 Temperature 98.6 F Pulse Rate [Pulse Oximeter] 71 78 Respiratory Rate 16 16 18 Blood Pressure [Le ft Arm] Blood Pressure [Ri ght Arm] 122/76 Pulse Oximetry 94 Oxygen Delivery Sd thod Room Air 06/08/24 07:00 06/08/24 07:00 06/08/24 11:00 Temperature 98.6 F 98.2 F Pulse Rate [Pulse Oximeter] 89 89 78 Respiratory Rate 16 16 14 Blood Pressure [Le ft Arm] 104/81 Blood Pressure [Ri ght Arm] 120/88 Pulse Oximetry 94 96 Oxygen Delivery Sd thod Room Air Room Air
--- NOTE | 2024-06-08 18:41 | PC.NURSE ---
End of shift report: VS WNL. afebrile. Ambulates 2 assist, GB, W. Expressive aphasia, answers with yes and no and hand gestures. Cellulitis on right hip is receding the outline, light pink and warm to touch. Pt having difficulty swallowing pureed foods such as potatoes. MD notified and speech consult ordered. Liquids thickened. Denies pain. Incontinent of urine and had a BM today. BRIANNA in R AC.
[2024-06-08] MEDS: ENOXAPARIN 40 MG/0.4 ML INJ SUBCUT (21:37)
[2024-06-08] MEDS: ASPIRIN 81 MG TABLET EC PO (21:37)
[2024-06-08] MEDS: bisacodyL 5 MG TABLET DR PO (21:37)
[2024-06-08] MEDS: AMLODIPINE 10 MG TABLET PO (21:37)
[2024-06-08] MEDS: MIRTAZAPINE 15 MG TABLET PO (21:37)
[2024-06-08] MEDS: PRAVASTATIN SODIUM 20 MG TABLET 10 MG PO (21:39)
[2024-06-09 04:05] VITALS: BP 108/68; PULSE 74; RESP 16; TEMP 36.6; O2SAT 95
[2024-06-09] MEDS: CEFAZOLIN 1 GM in 0.9 % SODIUM CHLORIDE Mini-bag 100 ML IVPB ×3 (04:10→19:38)
--- NOTE | 2024-06-09 04:51 | PC.NURSE ---
[id number]: Patient with expressive aphasia appears comfortable during shift. Unable to give definite answers to questions, even yes or no questions. Afebrile. Incontinent of B&B. Frequent T&R. Cellulitis on R. hip receding within previously drawn outline. Appeared to rest well during noc.
[2024-06-09 07:00] VITALS: BP 121/84; PULSE 80; RESP 16; TEMP 37; O2SAT 95
--- NOTE | 2024-06-09 09:11 | CRLHL7_ITS ---
For Patients: As a result of the Century Cures Act, medical imaging exams and procedure reports are released immediately into your electronic medical record. You may view this report before your referring provider. If you have questions, please contact your health care provider. Indication: Low back pain status post fall. Technique: Three images of the lumbosacral spine were acquired Comparison: None Findings: Poor visualization due to overlying gas, fecal material and marked demineralization. Degenerative changes. No obvious fracture. Impression: Poor visualization due to overlying gas, fecal material and marked demineralization. Degenerative changes. No obvious fracture identified on this examination. Dictated by Jeremy Mary MD @ 06/09/2024 11:48:10 AM (Electronically Signed)
--- NOTE | 2024-06-09 10:36 | PC.SOCIAL ---
Discharge planning: Received call from Zuleika at [facility] stating they do not have an appropriate bed available for pt and are refusing him for admit. generator worker to follow up as needed.
[2024-06-09 11:00] VITALS: BP 124/91; PULSE 77; RESP 16; TEMP 36.6; O2SAT 96
--- NOTE | 2024-06-09 11:55 | PC.SOCIAL ---
Addendum entered by Leticia Oreilly MELTER ASSISTANT 06/09/24 13:29: Discharge planning: Spoke with Lorene at [facility] who states they do not have any beds available. Called [facility] and spoke with Lorin who states they have an available bed at [facility] and could evaluate pt for that bed if requested. She provided a monthly private pay estimate of $11,000/month. Called brother, who states pt will not agree to pay that much for care and requested social director continue to look for a rehab bed at an insurance contracted SNF. Brother did not want the list of contracted SNF's emailed to him and instead requested placement in [place] or [place] facilities if available. wardrobe specialty worker secure emailed referral to [facility] and faxed referral to [facility] in [place]. Awaiting decision on admit from admissions coordinators at these two facilities. Original Note: Discharge planning: Met with pt and friend Tato in pt's room regarding d/c plan. Informed them [facility] does not have an available bed. Provided them with resource list of [facility] facilities contracted with pt's insurance. Tato requested social director contact pt's brother for direction on which facility to try for placement but mentioned he does not drive and would need to get a ride to visit so was hoping to have pt as close to [place] as possible. Tato mentioned pt did not have a good experience at [facility] and would not go back to that facility. Called some of the closer facilities regarding placement with the following results: 1. [facility] - no bed available. 2. [facility] - no bed available. 3. [facility] - spoke with [place] who is willing to assess pt if info can be faxed to [phone]. 4. [facility] - left message and awaiting call back. 5. [facility] - no bed available. Called and spoke with pt's brother (and POA) Eamon Flores [phone] who lives in [place]. Eamon shared that pt was not willing to do the rehab at [facility] or at home and does not think it makes sense to send him out of town to a rehab facility. Brother requested information be sent to [facility] as he has already spoken with someone on that campus about pt moving there and is aware it will be private pay. Called and secure emailed information to Lorene at [facility] and awaiting decision on admit. Brother states that if there is no facility able to accept pt in [place], he will speak with pt's friend Tato about pt returning home. wardrobe specialty worker to follow up as needed.
[2024-06-09] MEDS: SODIUM CHLORIDE 0.9 % (FLUSH) 10 ML SYRINGE 5 ML IVF ×2 (12:28→19:38)
--- NOTE | 2024-06-09 14:45 | P.IMPN_ITS ---
Assessment and Plan Assessment and plan (1) Cellulitis of trunk: Problem comment: - Recent fall and right hip with abrasion to the right hip and now extensive erythema around the right lateral hip going up the right flank. - cefazolin IV antibiotic. Consider switching to oral antibiotic soon. Status: Acute (2) History of embolic stroke: Problem comment: History of ischemic/embolic strokes 09/05, recommended to be on aspirin and statin for life, refuses statin until pravastatin started 03/07. Primary disability is loss of the ability to speak. Status: Acute (3) COPD (chronic obstructive pulmonary disease): Problem comment: Longstanding history of cigarette smoking. On clinical basis likely COPD. Not currently receiving any treatment for this. Not obviously having an exacerbation. Status: Acute (4) Cognitive impairment: Problem comment: - This is difficult to assess. This is suspected. Difficult to test due to nonverbal status. His roommate, Tato, expresses concern of this as well. - as best as I can ascertain he does not have a power of customer service technician for health at this time. I have asked our elementary school social worker to further assess and assist with this if at all possible. Discussed with his roommate, Tato, as well as his son, Eamon, who does have power of customer service technician for finances. 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 Poor nutrition with weight loss and very sedentary life likely contribute. Status: Acute (6) Malnutrition: Problem comment: Weight loss of about 20 lb in 11 months. Cause for this is uncertain. Did initiate mirtazapine 15 mg once daily to treat presumed major depression and stimulate appetite. Status: Acute (7) Frailty: Status: Suspected (8) Essential hypertension: Status: Acute (9) Chronic kidney disease, stage 3: Status: Acute (10) Major depression: Problem comment: - I suspect this is a component of his evolving emotional lability, weight loss, disinterest - will initiate mirtazapine 15 mg at bedtime for mood stability as well as appetite stimulation Status: Acute (11) Resuscitation status unknown: Problem comment: - we have no records of her resuscitation status. Patient's son, Eamon, has power of customer service technician for finances. Roommate, Tato, unaware of her resuscitation status order. Both Eamon and Tato indicate that patient has previously indicated to them that he does not want to be kept alive if he will continue to live in this manner, and certainly if he requires extraordinary measures such as tubes and ventilation. I have asked our psych social worker staff to assist Eamon in possibly obtaining power of customer service technician for health if patient is willing. -his brother, Eamon, is in contact with hospital elementary school social worker and will be submitting forms for her to review, including POA for finances and health Status: Acute (12) Low back pain: Problem comment: - lung both sacral spine x-rays 06/09/2024 demonstrate no acute fractures. Status: Acute Plan 1. Reviewed impression with patient and roommate and child care coordinator, Tato 2. Answered their questions 3. Continue with efforts to try to find a TCU setting for him to transition to Total Time Spent Total Time Spent: 35 minutes Subjective Date Seen: 06/09/24 Interval history: Admission history of present illness: ?68-year-old male with previous stroke and COPD is accompanied in by his roommate and caregiver, Tato, for concern of a sore on his hip from a fall, increasing weakness and ongoing weight loss. Ricki has had a history of a CVA and has expressive aphasia, is nearly aphasic after this stroke in August of 2022. He had a fall on the 01 of June in the bathroom. He maybe fell on his right chest, his right hip area. His roommate notes that he has an abraded area on his right hip. There is no noted fevers. Mostly history is obtained from the medical record and from Tato as the patient is unable to effectively verbally communicate and does not consistently nod yes and no to questions. Tato notes that Gama had ongoing decline with weight loss and progressive weakness and loss of mobility over the past few months. His weight on 07/07/2023 was 63.2 kg. Weight today is 54.4 kg. Tato notes that he is able to drink Ensure every day but otherwise eats very little. Ricki does feed himself but seems to have a poor appetite. Tato denies any problem with access to food. He notes that Ricki can be sometimes quite picky about what he eats. Ricki did have a swallowing evaluation after his stroke which did show some aspiration of thin liquids but he has apparently done okay with drinking fluids since that time. Ricki previously was able to stand and walk for limited distances in the house. In the past couple months he has lost the ability to stand and walk. He is incontinent of bowel and bladder. He does wear a diaper which he will change by himself. Uncertain whether he is able to control bowel and bladder function at all. ?Ricki has a brother Eamon who lives in [place]. Brother Eamon is healthcare power of customer service technician. I spoke with him today and he corroborates much of the information I received from Tato. Tato and Eamon have been considering a moved to assisted living because of márquez progressive decline.? Hospital day 2 (06/07/2024): I visit patient in his hospital room. Difficult to engage in meaningful conversation with him. Very slow to respond to questions. Whispers when he speaks. For the most part only answers yes or no questions. Does not engage in spontaneous dialogue or discussion. Rarely speaks a short sentence. Denies pain or discomfort. When I 1st see him in the morning he tells me he is not hungry. I see him again later in the morning and he is having bites of food. With assist as able to transfer from bed to recliner chair at bedside. Denies dyspnea at rest, paroxysmal nocturnal dyspnea, orthopnea. Denies dyspnea with exertion. Denies chest heaviness, pressure, tightness, or pain. Denies syncope, near syncope, orthostasis, dizziness, lightheadedness. Denies nausea or vomiting. Denies palpitations. Denies abdominal pain. Denies dysuria, urgency, frequency, hematuria. Denies blood loss of any sort. Denies diarrhea or constipation. Acknowledges long-standing weakness. Acknowledges a fall on 06/01/2024. Hospital day 3 (06/08/2024): Patient more awake and interactive today than yesterday. He ate well this morning. Was able to ambulate briefly with standby assist of 1 and walker and gait belt. Interaction is similar to yesterday. When he speaks he speaks in whispering voice that you may or may not understand. Breaks on to spontaneous crying at times particularly when he gets a sense that he feels loved. Denies concerns or problems today. Hospital day 4 (06/09/2024): More animated and interactive today. Voice continues to be whisper quality at best. Attempts to speak a full sentence but voice trails off after about 2 words. Notes low back pain. Also indicates he is hungry. Exam Narrative: Exam Narrative: Examine him in his hospital room. No acute distress. Friendly cooperative. Lungs are clear to auscultation. Heart tones with regular rhythm. Abdomen is thin, active bowel sounds, soft, nontender. No rebound. Extremities without edema. Right hip and flank cellulitis erythema is much less. No longer warm. Const: Vital Signs, click to edit/add: Vital Signs - 24 hr 06/08/24 14:47 06/08/24 14:51 06/08/24 19:48 Temperature 98.1 F 97.8 F Pulse Rate [Pulse Oximeter] 79 79 69 Respiratory Rate 16 16 22 Blood Pressure [Le ft Arm] 110/88 Blood Pressure [Ri ght Arm] 108/79 Pulse Oximetry 97 95 Oxygen Delivery Me thod Room Air Room Air 06/08/24 21:46 06/09/24 04:05 06/09/24 07:00 Temperature 97.9 F 97.9 F Pulse Rate [Pulse Oximeter] 77 74 80 Respiratory Rate 20 16 16 Blood Pressure [Le ft Arm] Blood Pressure [Ri ght Arm] 126/84 108/68 Pulse Oximetry 93 95 Oxygen Delivery Me thod Room Air Room Air 06/09/24 07:00 Temperature 98.6 F Pulse Rate [Pulse Oximeter] 80 Respiratory Rate 16 Blood Pressure [Le ft Arm] 121/84 Blood Pressure [Ri ght Arm] Pulse Oximetry 95 Oxygen Delivery Me thod Room Air
[2024-06-09 15:00] VITALS: BP 116/89; PULSE 84; RESP 16; TEMP 36.5; O2SAT 97
--- NOTE | 2024-06-09 19:32 | PC.NURSE ---
End of shift: Patient alert and oriented x2/3. VSS. RA and afebrile this shift. Redness marked on right hip and still within the line. Redness has improved. Patient denies N/V/SOB and pain. Swallow eval done at bedside and patient passed. Patient is encouraged to take time to eat and not floyd through the meals. Patient needs assistance to cut up food. Ambulated hallways with 1 assist walker and GB. tolerated activity well.
[2024-06-09 19:33] VITALS: BP 143/90; PULSE 83; RESP 22; TEMP 37; O2SAT 98
[2024-06-09] MEDS: ENOXAPARIN 40 MG/0.4 ML INJ SUBCUT (21:10)
[2024-06-09] MEDS: PRAVASTATIN SODIUM 20 MG TABLET 10 MG PO (21:11)
[2024-06-09] MEDS: AMLODIPINE 10 MG TABLET PO (21:11)
[2024-06-09] MEDS: MIRTAZAPINE 15 MG TABLET PO (21:11)
[2024-06-09] MEDS: ASPIRIN 81 MG TABLET EC PO (21:11)
[2024-06-09] MEDS: bisacodyL 5 MG TABLET DR PO (21:11)
[2024-06-09 23:12] VITALS: BP 126/83; PULSE 81; RESP 20; TEMP 36.8; O2SAT 94
[2024-06-10] MEDS: CEFAZOLIN 1 GM in 0.9 % SODIUM CHLORIDE Mini-bag 100 ML IVPB ×2 (03:56→11:53)
[2024-06-10] MEDS: 0.9 % SODIUM CHLORIDE 250 ml IV (03:56)
[2024-06-10 04:00] VITALS: BP 109/71; PULSE 77; RESP 20; TEMP 36.4; O2SAT 91
--- NOTE | 2024-06-10 05:39 | PC.NURSE ---
: Patient w/hx of CVA and expressive aphasia. Able to communicate with yes and no answers better this shift compared to writers last shift with patient. A1/walker/Gb. Denies pain. Denies N/V. Cellulitis on R. hip receding within outline. Appeared to rest well during noc. Frequent T&R.
[2024-06-10 06:46] LABS: Lactate* 0.9 mmol/L (0.5-1.9)
[2024-06-10 06:49] LABS: Hematocrit 36.3 % (37.0-53.0); Hemoglobin* 11.6 gm/dL (13.5-17.5); Mean Corpuscular HGB Conc 32 gm/dL (32-36); Mean Corpuscular Hemoglobin 31 pg (26-34); Mean Corpuscular Volume 96 fL (80-100); Platelet Count* 299 K/uL (140-440)
[2024-06-10 06:54] LABS: Slide Review Reflex No
[2024-06-10 07:00] VITALS: BP 128/86; PULSE 80; RESP 18; TEMP 36.8; O2SAT 96
[2024-06-10 07:34] LABS: Chloride* 108 mmol/L (96-114); Potassium* 4.4 mmol/L (3.6-5.1); Sodium* 142 mmol/L (135-149)
[2024-06-10 07:37] LABS: Blood Urea Nitrogen* 26 mg/dL (7-30); Est. Creatinine Clearance* 54.61; Estimated Glomerular Filt Rate 81 ml/min
[2024-06-10 07:38] LABS: Anion Gap 7 mEq/L (7-15); Calcium* 9.1 mg/dL (8.4-10.6); Carbon Dioxide* 27 mmol/L (20-32); Glucose* 89 mg/dL (60-115); Magnesium* 1.8 mg/dL (1.5-2.6); Phosphorus* 3.2 mg/dL (2.5-4.5)
[2024-06-10] MEDS: SODIUM CHLORIDE 0.9 % (FLUSH) 10 ML SYRINGE 5 ML IVF (10:01)
[2024-06-10 11:00] VITALS: BP 114/77; PULSE 74; RESP 18; TEMP 36.8; O2SAT 95
[2024-06-10] MEDS: ACETAMINOPHEN 325 MG TABLET 650 MG PO (11:53)
--- NOTE | 2024-06-10 13:23 | PC.NURSE ---
DC: Pt alert and vitally stable. Pt has expressive aphasia at baseline, was non verbal throughout shift, though able to follow commands. Pt on regular diet, tolerated well. Pt takes pills 1 at a time, tolerates well. 1a while up. DC information given to pt and formulator, topics including follow up, meds, and exercise to build strength. Pt DC home with formulator at 1311.
--- NOTE | 2024-06-10 16:56 | PM.DS1 ---
DS: Providers Provider Date Seen: 06/10/24 Date of admission: 06/06/24 17:05 Primary care physician: Francesca Tsai MD Admitting Clinician: Denilson Angela MD Consults: 06/06/24 17:05 Consult to Nutrition [CONS] Routine Comment: Reason for consult:: Nutritional Consult Consult to Occupational Therapy [CONS] Routine Comment: Reason(s) for OT Consult:: Evaluate and Treat Any Restrictions?:: No Restrictions Consult to Physical Therapy [CONS] Routine Comment: Reason(s) for PT Consult:: Evaluate and Treat Any Restrictions?:: No Restrictions Consult to Treatment Coordinator [CONS] Routine Comment: Reason for Consult:: Discharge Planning Needs 06/08/24 18:18 Consult to Speech Therapy [CONS] Routine Comment: Reason(s) for Speech Consult:: Swallowing Difficulty Attending Physician on discharge: Jun Wheat MD Date of Discharge: 06/10/24 DS: Diagnosis Discharge Diagnosis (1) Cellulitis of trunk: Status: Acute Problem details: - Recent fall and right hip with abrasion to the right hip and now extensive erythema around the right lateral hip going up the right flank. - cefazolin IV antibiotic. Consider switching to oral antibiotic soon. (2) Fall: Status: Acute (3) Frailty: Status: Suspected (4) Cognitive impairment: Status: Acute Problem details: - This is difficult to assess. This is suspected. Difficult to test due to nonverbal status. His roommate, Tato, expresses concern of this as well. - as best as I can ascertain he does not have a power of attorney general for health at this time. I have asked our psychosocial rehabilitation counselor to further assess and assist with this if at all possible. Discussed with his roommate, Tato, as well as his brother, Eamon, who does have power of attorney general for finances. (5) 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: Status: Acute Problem details: - History of disability from stroke and now progression of disability with loss of the ability to stand and walk in the last few months. Poor nutrition with weight loss and very sedentary life likely contribute. (6) Malnutrition: Status: Acute Problem details: Weight loss of about 20 lb in 11 months. Cause for this is uncertain. Did initiate mirtazapine 15 mg once daily to treat presumed major depression and stimulate appetite. (7) Unsteady gait: Status: Acute Problem details: - needs assistance with transfer and gait (8) Low back pain: Status: Acute Problem details: - lung both sacral spine x-rays 06/09/2024 demonstrate no acute fractures. (9) COPD (chronic obstructive pulmonary disease): Status: Acute Problem details: Longstanding history of cigarette smoking. On clinical basis likely COPD. Not currently receiving any treatment for this. Not obviously having an exacerbation. (10) Major depression: Status: Acute Problem details: - I suspect this is a component of his evolving emotional lability, weight loss, disinterest - will initiate mirtazapine 15 mg at bedtime for mood stability as well as appetite stimulation (11) Resuscitation status unknown: Status: Acute Problem details: - we have no records of her resuscitation status. Patient's son, Eamon, has power of attorney general for finances. Roommate, Tato, unaware of her resuscitation status order. Both Eamon and Tato indicate that patient has previously indicated to them that he does not want to be kept alive if he will continue to live in this manner, and certainly if he requires extraordinary measures such as tubes and ventilation. I have asked our social staff worker staff to assist Eamon in possibly obtaining power of attorney general for health if patient is willing. -his brother, Eamon, is in contact with hospital psychosocial rehabilitation counselor and will be submitting forms for her to review, including POA for finances and health DS: Summary Hospital Course Hospital Course: Admission history of present illness: ?68-year-old male with previous stroke and COPD is accompanied in by his roommate and caregiver, Tato, for concern of a sore on his hip from a fall, increasing weakness and ongoing weight loss. Ricki has had a history of a CVA and has expressive aphasia, is nearly aphasic after this stroke in August of 2022. He had a fall on the 01 of June in the bathroom. He maybe fell on his right chest, his right hip area. His roommate notes that he has an abraded area on his right hip. There is no noted fevers. Mostly history is obtained from the medical record and from Tato as the patient is unable to effectively verbally communicate and does not consistently nod yes and no to questions. Tato notes that Gama had ongoing decline with weight loss and progressive weakness and loss of mobility over the past few months. His weight on 07/07/2023 was 63.2 kg. Weight today is 54.4 kg. Tato notes that he is able to drink Ensure every day but otherwise eats very little. Ricki does feed himself but seems to have a poor appetite. Tato denies any problem with access to food. He notes that Ricki can be sometimes quite picky about what he eats. Ricki did have a swallowing evaluation after his stroke which did show some aspiration of thin liquids but he has apparently done okay with drinking fluids since that time. Ricki previously was able to stand and walk for limited distances in the house. In the past couple months he has lost the ability to stand and walk. He is incontinent of bowel and bladder. He does wear a diaper which he will change by himself. Uncertain whether he is able to control bowel and bladder function at all. ?Ricki has a brother Eamon who lives in [place]. Brother Eamon is healthcare power of attorney general. I spoke with him today and he corroborates much of the information I received from Tato. Tato and Eamon have been considering a moved to assisted living because of márquez progressive decline.? See specific diagnosis above for his progress during this hospital stay. Ultimately the decision was made that he would return home with increased support and assistance. Should that fail then he would need to proceed to [facility] facility care. His brother, Eamon, will continue to work with the patient's roommate, Tato, who is his primary caregiver, in an effort to ascertain the patient's needs and meet them as best as they can. Status at Discharge Functional status at discharge: uses cane/walker Overall status at discharge: patient is back to baseline Time Spent with Patient Time attestation: Total time spent providing and/or coordinating discharge services: Time spent: Greater than 30 minutes Exam Narrative: Exam Narrative: Examine him in his hospital room. No acute distress. Friendly cooperative. Lungs are clear to auscultation. Heart tones with regular rhythm. Abdomen is thin, active bowel sounds, soft, nontender. No rebound. Extremities without edema. Right hip and flank cellulitis erythema is much less. No longer warm. I observe him ambulating the hallways with walker, gait belt, assist of 1. Const: Vital Signs, click to edit/add: Vital Signs - 24 hr 06/09/24 19:33 06/09/24 23:12 06/10/24 04:00 Temperature 98.6 F 98.3 F 97.6 F Pulse Rate [Pulse Oximeter] 83 81 77 Respiratory Rate 22 20 20 Blood Pressure [Le ft Arm] 143/90 H Blood Pressure [Ri ght Arm] 126/83 109/71 Pulse Oximetry 98 94 91 Oxygen Delivery Me thod Room Air Room Air Room Air 06/10/24 07:00 06/10/24 07:00 06/10/24 11:00 Temperature 98.2 F 98.2 F Pulse Rate [Pulse Oximeter] 80 80 74 Respiratory Rate 18 18 18 Blood Pressure [Le ft Arm] Blood Pressure [Ri ght Arm] 128/86 114/77 Pulse Oximetry 96 95 Oxygen Delivery Me thod Room Air Room Air DS: Data Data Completed and Pending Labs on day of discharge: Labs from last 24 hours 06/10/24 05:59 WBC 7.40 RBC 3.80 L Hgb 11.6 L Hct 36.3 L MCV 96 MCH 31 MCHC 32 Plt Count 299 Sodium 142 Potassium 4.4 Chloride 108 Carbon Dioxide 27 Anion Gap 7 BUN 26 Creatinine 1.0 Estimated Creat Clear 54.61 Estimated GFR 81 Glucose 89 Lactate 0.9 Calcium 9.1 Phosphorus 3.2 Magnesium 1.8 C-Reactive Protein 1.0 Imaging Chest x-ray: Radiologist's impression: Similar mild diffuse pulmonary interstitial opacities possibly representing edema, infection, or an inflammatory process. CT scan - head: Radiologist's impression: No acute intracranial process. Right hip x-rays: Radiologist's impression: No acute osseous process Lumbar spine x-rays: Radiologist's impression: Poor visualization due to overlying gas, fecal material and marked demineralization. Degenerative changes. No obvious fracture identified on this examination. Discharge Plan Discharge Disposition: Home w/ Parent or Adult Date of Admission: 06/06/24 17:05 Attending Provider on Discharge: Jun Wheat Primary Care Provider: Francesca Tsai Condition: Improved Anticipated Discharge Date/Time: 06/10/24 12:30 Discharge Medications: New mirtazapine 15 mg Tablet 15 mg PO HS 30 Days Qty: 30 2RF Continued aspirin [Adult Low Dose Aspirin] 81 mg tablet,delayed release (DR/EC) 81 mg PO HS bisacodyl 5 mg tablet,delayed release (DR/EC) 5 mg PO HS pravastatin 10 mg tablet 10 mg PO HS amlodipine 10 mg tablet 10 mg PO HS Discharge Orders: Discharge Order (Routine); Ordered 06/10/24 Ordered By: Jun Wheat Patient Education: Mirtazapine (By mouth), Weakness (DC), Failure to Thrive in Older Adults (DC), Depression in Older Adults (DC) Additional Instructions: 1. Follow-up with primary care physician in 1-2 weeks 2. Daily safe exercises for strengthening and mobility 3. Recommend additional services in the home, such as bathing, safety assessment, etc 4. You would do well to decide on a resuscitation (code) status and inform your caregivers Activity Level: Activity as Tolerated, Use Walker and Other Activity Detail: Need assistance with transferring and ambulating safely Discharge Diet: Regular Diet Detail: Offer nutritional supplement 3 times daily, such as [place] instant breakfast, Ensure, etc. Follow Up Appointments: Francesca Tsai MD [Primary Care Provider] - 06/16/24 2:30 pm ([facility] for hospital follow-up.) Forms: [employer] Info Instructions
== END 2024-06-10 13:11 | disposition home or self-care (01) | DRG 602 ==
LOC: ED 16:07 → MEDSURG 16:43
PROVIDERS: Internal Medicine; Admitting Provider Family Medicine; Emergency Provider Family Medicine; PCP Internal Medicine; Visit Provider Family Medicine
DX: L03.319 Cellulitis of trunk, unspecified (principal); E43 Unspecified severe protein-calorie malnutrition; Z68.1 Body mass index [BMI] 19.9 or less, adult; J44.9 Chronic obstructive pulmonary disease, unspecified; S70.211A Abrasion, right hip, initial encounter; M54.50 Low back pain, unspecified; F32.9 Major depressive disorder, single episode, unspecified; I12.9 Hypertensive chronic kidney disease with stage 1 through stage 4 chronic kidney disease, or unspecified chronic kidney disease; N18.30 Chronic kidney disease, stage 3 unspecified; Z87.891 Personal history of nicotine dependence; I10 Essential (primary) hypertension; I69.398 Other sequelae of cerebral infarction; I69.320 Aphasia following cerebral infarction; R53.1 Weakness; R26.89 Other abnormalities of gait and mobility; I69.318 Other symptoms and signs involving cognitive functions following cerebral infarction; Z91.81 History of falling; W19.XXXA Unspecified fall, initial encounter; Y92.002 Bathroom of unspecified non-institutional (private) residence as the place of occurrence of the external cause
CPT/HCPCS: 36415; 51798; 70450; 71046; 72100; 73502; 80048; 80053; 80306; 81001; 82077; 82248; 82550; 83605; 83735; 84100; 84484; 85025; 85027; 86140; 87086; 87631; 92610; 93005; 94761; 97110; 97116; 97162; 97165; 97530; 97535; 99285; A9270; J0690; J1650; J7030; J7050